=== PATIENT | male | born 1945 | race Caucasian/White ===

== ENCOUNTER → 2018-01-20 07:03 | Outpatient (CLI) | payer MEDICARE, OTHER, SELFPAY ==
[2018-01-20 10:25] LABS: AST(SGOT) 37 U/L (15-37); Alanine Aminotransfer ALT/SGPT 36 U/L (16-61); Albumin, Serum 3.4 g/dL (3.2-5.0); Alkaline Phosphatase 53 U/L (45-117); Bilirubin, Direct 0.14 mg/dL (0.00-0.30); Cholesterol 128 mg/dL (200); Globulin 3.7 g/dL (2.2-4.2); High Density Lipoprotein 38 mg/dL; Protein, Total 7.1 g/dL (6.4-8.2); Triglycerides 133 mg/dL; Very Low Density Lipoprotein 27 mg/dL (5-40)
== END ==
PROVIDERS: Family Provider Internal Medicine; PCP Internal Medicine; Visit Provider Nurse Practitioner Family
DX: E78.5 Hyperlipidemia, unspecified (principal); Z79.899 Other long term (current) drug therapy
CPT/HCPCS: 36415; 80061; 80076

== ENCOUNTER 2018-02-23 20:56 | Observation (INO) | payer MEDICARE, OTHER, SELFPAY ==
[2018-02-23 20:57] VITALS: BP 175/66; PULSE 71; RESP 18; TEMP 36.7; O2SAT 94; BMI 41.8
--- NOTE | 2018-02-23 21:16 | EKG12_ITS ---
Test Reason : CHEST PAIN Blood Pressure : / mmHG Vent. Rate : 070 BPM Atrial Rate : 070 BPM P-R Int : 232 ms QRS Dur : 084 ms QT Int : 394 ms P-R-T Axes : 052 049 060 degrees QTc Int : 425 ms Sinus rhythm with 1st degree A-V block Otherwise normal ECG Confirmed by NJ TALBOT, DANY ([id number]), science editor CESILIA NAGEL ([id number] on 02/26/2018 2:03:17 PM Referred By: MARY Confirmed By:DANY MAURO MD
--- NOTE | 2018-02-23 21:16 | RAD_ITS ---
STUDY: X-RAY CHEST REASON FOR EXAM: Male, 72 years old. Chest pain TECHNIQUE: Single frontal view of the chest. COMPARISON: January 21, 2016 FINDINGS: Sternotomy wires noted. The lungs are clear and expanded. There is no demonstrated pleural abnormality. Normal size heart. Normal mediastinum and darshan. Normal visualized pulmonary arteries. Normal visualized aortic arch and descending thoracic aorta. Normal visualized thoracic spine. Normal visualized ribs, clavicles, and shoulders. There is no demonstrated abnormality of the visualized soft tissue structures of the upper abdomen. RAD/Chest 1 View (Portable) IMPRESSION: Normal x-ray examination of the chest. Electronically Signed: Mario Fraser MD at 21:59 EDT , Service support ,
[2018-02-23 21:33] LABS: Absolute Lymphocyte Count 1.75 X10^3/ul (0.83-4.51); Absolute Neutrophil Count 4.6 X10^3/uL (2.0-7.7); Basophil# 0.02 X10^3/uL; Basophil% 0.3 % (0-1); Eosinophil# 0.14 X10^3/uL; Hematocrit 42.9 % (40-54); Hemoglobin 14.2 g/dl (13.0-16.5); Lymphocyte # 1.75 X10^3/ul (4.0); Lymphocyte % 25.2 % (19-41); Mean Corp Hgb Conc 33.1 g/gl (32-36); Mean Corpuscular Volume 90.5 fL (80-94); Monocyte# 0.45 X10^3/uL; Monocyte% 6.5 % (0-10); Neutrophil # 4.57 X10^3/uL (2.7-7.7); Neutrophil % 65.9 % (47-70); Platelet Count 211 K/mm3 (150-450); RBC Distribution Width CV 13.1 % (11.6-14.6); RBC Distribution Width SD 42.7 fl (35.1-43.9); Red Blood Count 4.74 M/mm3 (4.6-6.2); White Blood Count 6.9 K/mm3 (4.4-11.0)
[2018-02-23 21:34] LABS: POSITIVE COUNT NO; POSITIVE DIFFERENTIAL NO; POSITIVE MORPHOLOGY NO
[2018-02-23 21:35] LABS: Anion Gap 7 (5-15); BUN 17 mg/dL (7-18); Calcium,Total 8.8 mg/dL (8.5-10.1); Chloride 105 mmol/L (98-107); Creatinine, Serum 1.13 mg/dL (0.70-1.30); EST Glomerular Filtration Rate 68 mL/min (>60); Est Glom Filt Rate - Afr Amer 82 mL/min (>60); Estimated Creatinine Clearance 59.09 ml/min; Glucose 169 mg/dL (74-106); Sodium Level 140 mmol/L (136-145)
[2018-02-23] MEDS: 0.9% Normal Saline 1,000 ML 150 ML IV (21:36)
[2018-02-23] MEDS: Aspirin 81 MG TAB.CHEW 324 MG PO (21:36)
[2018-02-23 22:06] VITALS: BP 142/69; PULSE 59; RESP 19; O2SAT 93
--- NOTE | 2018-02-23 22:45 | PCM.HP.STD ---
Problem List (1) Chest pain Status: Acute (2) Atherosclerotic heart disease of [place] coronary artery without angina pectoris Status: Chronic Comment: 11/03/2001 CABG X2: SHEA to LAD and left radial artery graft to the PDA per Dr. Vince Pruett, [facility] (3) Hyperlipidemia Status: Chronic Qualifiers: (4) Hypertension Status: Chronic Qualifiers: (5) Ischemic cardiomyopathy Status: Chronic History of Present Illness Date of Admission: 02/23/18 Chief Complaint: chest pain. The patient is a 72 year old M with known history of coronary artery disease presents with chest pain. Patient was out mowing his lawn and developed substernal chest pain that was nonradiating. Some mowing his lawn and then went inside. Pain persisted for 30 minutes afterwards and was only relieved after he took nitroglycerin. Patient states that he has had a CABG and stents but was not having chest pain at that time. Patient states that he did feel nauseated with this but denied any other constitutional symptoms. He is currently chest pain-free at this time. In the emergency room, patient received 324 mg of aspirin and IV fluids. [] Past Medical History Past Medical History (Chronic Problems): Chronic Problems (Last Reviewed 12/29/17 @ 13:50 by Panchito Estrada MD) Stented coronary artery (Chronic) 02/20/1998 DANIEL to RCA per Dr. Vince Leblanc @ [facility]; 02/12/2016 DANIEL to distal RCA to proximal right PDA; DANIEL to mid RCA, and DANIEL to pre-existing stent to proximal RCA per Dr. Hernandez @ [facility]; 03/12/2016: DANIEL to proximal to mid OM, and to proximal LCX per Dr. Hernandez [facility] Ischemic cardiomyopathy (Chronic) History of left heart catheterization (Chronic) 10/26/[address] Estrada @ [facility], Tsfer to [facility] for CABG; 01/28/2016 perDr. Estrada @ [facility] S/P CABG x 2 (Chronic) 11/03/2001 CABG X2: SHEA to LAD and left radial artery graft to the PDA per Dr. Vince Pruett, [facility] Atherosclerotic heart disease of [place] coronary artery without angina pectoris (Chronic) 11/03/2001 CABG X2: SHEA to LAD and left radial artery graft to the PDA per Dr. Vince Pruett, [facility] Hypertension (Chronic) Hyperlipidemia (Chronic) Allergies No Known Allergies Allergy (Verified 02/23/18 21:04) Home Medications: Ambulatory Orders Medication Instructions Recorded Alfuzosin HCl [Alfuzosin HCl ER] 10 mg PO DAILY 01/24/16 Aspirin [Aspirin, Baby] 81 mg PO DAILY@0800 01/24/16 Aspirin/Sod Bicarb/Citric Acid 1 ea PO PRN PRN 01/24/16 [[place] Original Tab Eff] Dutasteride [Avodart] 0.5 mg PO DAILY 01/24/16 Metoprolol Tartrate [Lopressor 50 mg PO BID 01/24/16 (Beta Alvino)] Multivitamins,Therapeutic 1 tab PO DAILY 01/24/16 [Multivitamin] Nitroglycerin [Nitrostat] 0.4 mg SUBLINGUAL Q5M PRN 01/24/16 Simvastatin [Zocor] 20 mg PO QHS 01/24/16 clopidogrel 75 mg tablet 75 mg PO QDAY tab 12/28/17 Fenofibrate [Lipofen] 160 mg PO DAILY 02/23/18 Losartan Potassium [Cozaar] 50 mg PO QDAY 02/23/18 Surgical History: coronary bypass surgery Psychiatric History: No pertinent psych hx Lives: Spouse/ Significant Other Smoking Status: Former smoker Tobacco Use: Non-smoker Alcohol: None Drugs: None - *Family History Paternal History Items: Heart Disease - Story of CABG Review of Systems Constitutional: Denies: Anorexia, Chills, Fever Eyes: Denies: Blurred vision, Double vision HEENT: Denies: Head Aches, Sinus Congestion, Sinus Drainage Cardiovascular: Reports: Chest Pain, Edema - Trace Respiratory: Denies: Cough, Shortness of breath at rest, Sputum production Gastrointestinal: Reports: Abdominal Pain, Nausea. Denies: Diarrhea, Vomiting Musculoskeletal: Denies: Joint Pain, Joint Tenderness Skin: Denies: Rash, Wounds Neurological: Denies: Numbness, Tingling, Focal weakness Psychiatric: Denies: Anxiety, Depression Hematologic/ Lymphatic: Denies: Easy Bruising, Easy Bleeding, Hx of blood clot VTE Information - Inpt Only VTE Present on Admission: No VTE Pharm Prophylaxis ordered?: Yes Patient Problems: Active and Suspected Problems (Last Reviewed 12/29/17 @ 13:50 by Panchito Estrada MD) Chest pain (Acute) - Physical Exam General: Alert, Cooperative, No apparent distress HEENT: Atraumatic, Normocephalic Neck: No Nodes, Thyroid Normal Size and Texture Lungs: Clear to auscultation, Normal air movement, No rhonchi, No wheeze Cardiovascular: Regular rate, Regular Rhythm, Normal S1, Normal S2, No murmurs Abdomen: Bowel Sounds Present, Soft, Non Tender, Non-Distended, No Hepato-splenomegaly, Obese Extremities: No Calf Tenderness, Edema - Trace Skin: No rashes, No breakdown Psych/Mental Status: Normal Affect, Appropriate Vital Signs Temp Pulse Resp BP Pulse Ox 36.7 C 59 L 19 H 142/69 H 93 02/23/18 20:57 02/23/18 22:06 02/23/18 22:06 02/23/18 22:06 02/23/18 22:06 Oxygen Delivery Method Room Air Weight: 128.367 kg Body Mass Index (BMI) 41.8 Laboratory Tests Past 24 Hrs 02/23/18 02/23/18 21:03 21:03 WBC 6.9 RBC 4.74 Hgb 14.2 Hct 42.9 MCV 90.5 MCH 30.0 MCHC 33.1 RDW 13.1 RDW Differential 42.7 Plt Count 211 MPV 10.0 Immature Gran % (Auto) 0.100 Neut % (Auto) 65.9 Lymph % (Auto) 25.2 [place] % (Auto) 6.5 Eos % (Auto) 2.0 Baso % (Auto) 0.3 Absolute Neuts (auto) 4.6 Absolute Lymphs (auto) 1.75 Total Counted Not Reportable Sodium 140 Potassium 4.0 Chloride 105 Carbon Dioxide 28.0 Anion Gap 7 BUN 17 Creatinine 1.13 Estim Creat Clear Calc 59.09 Est GFR (MDRD) Af Amer 82 Est GFR (MDRD) Non-Af 68 BUN/Creatinine Ratio 15.0 Glucose 169 H Calcium 8.8 Troponin I < 0.015 EKG reviewed and showed normal sinus rhythm with a first-degree AV block. Clinical Impression(s) from Imaging Studies Chest X-Ray 02/23/18 21:16 IMPRESSION: Normal x-ray examination of the chest. Electronically Signed: Mario Fraser MD at 21:59 EDT , Service support , Assessment/Plan Active and Suspected Problems (Last Reviewed 12/29/17 @ 13:50 by Panchito Estrada MD) Chest pain (Acute) 1. Chest pain: Patient to be admitted and we will cycle troponins and plan for a chemical nuclear stress test in the morning. If stress test is abnormal then we will consult cardiology for further evaluation. 2. DVT prophylaxis with Lovenox Code Visit OBSV E&M: 96696 Initial observation care L2
[2018-02-23 22:47] VITALS: BP 180/81; PULSE 61; RESP 19; O2SAT 94
--- NOTE | 2018-02-23 22:55 | HP.PCM_ITS ---
Problem List (1) Chest pain Status: Acute (2) Atherosclerotic heart disease of [place] coronary artery without angina pectoris Status: Chronic Comment: 11/03/2001 CABG X2: SHEA to LAD and left radial artery graft to the PDA per Dr. Vince Pruett, [facility] (3) Hyperlipidemia Status: Chronic Qualifiers: (4) Hypertension Status: Chronic Qualifiers: (5) Ischemic cardiomyopathy Status: Chronic History of Present Illness Date of Admission: 02/23/18 Chief Complaint: chest pain. The patient is a 72 year old M with known history of coronary artery disease presents with chest pain. Patient was out mowing his lawn and developed substernal chest pain that was nonradiating. Some mowing his lawn and then went inside. Pain persisted for 30 minutes afterwards and was only relieved after he took nitroglycerin. Patient states that he has had a CABG and stents but was not having chest pain at that time. Patient states that he did feel nauseated with this but denied any other constitutional symptoms. He is currently chest pain-free at this time. In the emergency room, patient received 324 mg of aspirin and IV fluids. [] Past Medical History Past Medical History (Chronic Problems): Chronic Problems (Last Reviewed 12/29/17 @ 13:50 by Panchito Estrada MD) Stented coronary artery (Chronic) 02/20/1998 DANIEL to RCA per Dr. Vince Leblanc @ [facility]; 02/12/2016 DANIEL to distal RCA to proximal right PDA; DANIEL to mid RCA, and DANIEL to pre-existing stent to proximal RCA per Dr. Hernandez @ [facility]; 03/12/2016: DANIEL to proximal to mid OM, and to proximal LCX per Dr. Hernandez [facility] Ischemic cardiomyopathy (Chronic) History of left heart catheterization (Chronic) 10/26/[address] Estrada @ [facility], Tsfer to [facility] for CABG; 01/28/2016 perDr. Estrada @ [facility] S/P CABG x 2 (Chronic) 11/03/2001 CABG X2: SHEA to LAD and left radial artery graft to the PDA per Dr. Vince Pruett, [facility] Atherosclerotic heart disease of [place] coronary artery without angina pectoris (Chronic) 11/03/2001 CABG X2: SHEA to LAD and left radial artery graft to the PDA per Dr. Vince Pruett, [facility] Hypertension (Chronic) Hyperlipidemia (Chronic) Allergies No Known Allergies Allergy (Verified 02/23/18 21:04) Home Medications: Ambulatory Orders Medication Instructions Recorded Alfuzosin HCl [Alfuzosin HCl ER] 10 mg PO DAILY 01/24/16 Aspirin [Aspirin, Baby] 81 mg PO DAILY@0800 01/24/16 Aspirin/Sod Bicarb/Citric Acid 1 ea PO PRN PRN 01/24/16 [[place] Original Tab Eff] Dutasteride [Avodart] 0.5 mg PO DAILY 01/24/16 Metoprolol Tartrate [Lopressor 50 mg PO BID 01/24/16 (Beta Alvino)] Multivitamins,Therapeutic 1 tab PO DAILY 01/24/16 [Multivitamin] Nitroglycerin [Nitrostat] 0.4 mg SUBLINGUAL Q5M PRN 01/24/16 Simvastatin [Zocor] 20 mg PO QHS 01/24/16 clopidogrel 75 mg tablet 75 mg PO QDAY tab 12/28/17 Fenofibrate [Lipofen] 160 mg PO DAILY 02/23/18 Losartan Potassium [Cozaar] 50 mg PO QDAY 02/23/18 Surgical History: coronary bypass surgery Psychiatric History: No pertinent psych hx Lives: Spouse/ Significant Other Smoking Status: Former smoker Tobacco Use: Non-smoker Alcohol: None Drugs: None - *Family History Paternal History Items: Heart Disease - Story of CABG Review of Systems Constitutional: Denies: Anorexia, Chills, Fever Eyes: Denies: Blurred vision, Double vision HEENT: Denies: Head Aches, Sinus Congestion, Sinus Drainage Cardiovascular: Reports: Chest Pain, Edema - Trace Respiratory: Denies: Cough, Shortness of breath at rest, Sputum production Gastrointestinal: Reports: Abdominal Pain, Nausea. Denies: Diarrhea, Vomiting Musculoskeletal: Denies: Joint Pain, Joint Tenderness Skin: Denies: Rash, Wounds Neurological: Denies: Numbness, Tingling, Focal weakness Psychiatric: Denies: Anxiety, Depression Hematologic/ Lymphatic: Denies: Easy Bruising, Easy Bleeding, Hx of blood clot VTE Information - Inpt Only VTE Present on Admission: No VTE Pharm Prophylaxis ordered?: Yes Patient Problems: Active and Suspected Problems (Last Reviewed 12/29/17 @ 13:50 by Panchito Estrada MD ) Chest pain (Acute) - Physical Exam General: Alert, Cooperative, No apparent distress HEENT: Atraumatic, Normocephalic Neck: No Nodes, Thyroid Normal Size and Texture Lungs: Clear to auscultation, Normal air movement, No rhonchi, No wheeze Cardiovascular: Regular rate, Regular Rhythm, Normal S1, Normal S2, No murmurs Abdomen: Bowel Sounds Present, Soft, Non Tender, Non-Distended, No Hepato- splenomegaly, Obese Extremities: No Calf Tenderness, Edema - Trace Skin: No rashes, No breakdown Psych/Mental Status: Normal Affect, Appropriate Vital Signs Temp Pulse Resp BP Pulse Ox 36.7 C 59 L 19 H 142/69 H 93 02/23/18 20:57 02/23/18 22:06 02/23/18 22:06 02/23/18 22:06 02/23/18 22:06 Oxygen Delivery Method Room Air Weight: 128.367 kg Body Mass Index (BMI) 41.8 Laboratory Tests Past 24 Hrs 02/23/18 02/23/18 21:03 21:03 WBC 6.9 RBC 4.74 Hgb 14.2 Hct 42.9 MCV 90.5 MCH 30.0 MCHC 33.1 RDW 13.1 RDW Differential 42.7 Plt Count 211 MPV 10.0 Immature Gran % (Auto) 0.100 Neut % (Auto) 65.9 Lymph % (Auto) 25.2 [place] % (Auto) 6.5 Eos % (Auto) 2.0 Baso % (Auto) 0.3 Absolute Neuts (auto) 4.6 Absolute Lymphs (auto) 1.75 Total Counted Not Reportable Sodium 140 Potassium 4.0 Chloride 105 Carbon Dioxide 28.0 Anion Gap 7 BUN 17 Creatinine 1.13 Estim Creat Clear Calc 59.09 Est GFR (MDRD) Af Amer 82 Est GFR (MDRD) Non-Af 68 BUN/Creatinine Ratio 15.0 Glucose 169 H Calcium 8.8 Troponin I < 0.015 EKG reviewed and showed normal sinus rhythm with a first-degree AV block. Clinical Impression(s) from Imaging Studies Chest X-Ray 02/23/18 21:16 IMPRESSION: Normal x-ray examination of the chest. Electronically Signed: Mario Fraser MD at 21:59 EDT , Service support , Assessment/Plan Active and Suspected Problems (Last Reviewed 12/29/17 @ 13:50 by Panchito Estrada MD ) Chest pain (Acute) 1. Chest pain: * Patient to be admitted and we will cycle troponins and plan for a chemical nuclear stress test in the morning. * If stress test is abnormal then we will consult cardiology for further evaluation. 2. DVT prophylaxis with Lovenox Code Visit OBSV E&M: 65185 Initial observation care L2
--- NOTE | 2018-02-23 23:01 | ED.VISSUMM ---
- ER Visit Summary Date of Service: 02/23/18 Chief Complaint: Chest pain History of Present Illness: The patient is a [address] Estrada and Dr. Ariza. He reports that he was mowing the lawn approximately 5:00 this afternoon when he had intermittent episodes of chest pain lasts seconds at a time. States that after finishing mowing the lawn he had approximately 30 minutes of a substernal tightness without radiation. He reports pain was 5 out of 10 at worst and is pain-free currently. Pain was relieved by nitroglycerin. He reports that it made him nauseated and short of breath. Physical Examination: Vitals: Stable. Afebrile. General: Well-nourished and well-developed. Head: Normocephalic atraumatic. Neck: Supple, no lymphadenopathy. No JVD. Nontender. Cardiovascular: Regular rate and rhythm. No murmurs. Respiratory: No respiratory distress. Clear to auscultation bilaterally. Abdominal: Soft, nontender, nondistended, normal bowel sounds. No guarding, rebound, or peritoneal signs. Back: Nontender. Extremities: Nontender, no edema. Skin: Normal color, no rash. Neurologic: Alert and oriented ?3. Cranial nerves II through XII are intact. Normal strength and sensation. Psych: Normal affect. Test Results: EKG is sinus with first-degree AV block rate of 70. No acute changes. Unchanged from July 2014. Chest x-ray is normal. Troponin is negative. Chem-7 is more for glucose 169. CBC is normal. Emergency Department Course and Treatment: She was treated with aspirin and is rested comfortably without chest pain while here. Treatment Plan: Given the patient's risk factors I feel that he should be admitted to the hospital for further evaluation and treatment. He was discussed with Dr. Rosado. Disposition: Admitted in improved condition. Impression: 1. Chest pain. 2. MANUEL score of 4. This note was generated with [employer] dictation software. It may contain incorrect words, spelling, and punctuation that were not noted in review of the chart prior to signing ED Disposition - Plan for ED Patient: Chief Complaint: Chest Pain
[2018-02-23 23:38] VITALS: BP 179/90; PULSE 63; RESP 22; TEMP 36.9; O2SAT 94; BMI 41.4; BMI 41.5
[2018-02-23 23:39] VITALS: BP 194/79
[2018-02-23 23:52] VITALS: PULSE 60
--- NOTE | 2018-02-23 23:54 | EKG12_ITS ---
Test Reason : CP REPEAT Blood Pressure : / mmHG Vent. Rate : 058 BPM Atrial Rate : 058 BPM P-R Int : 256 ms QRS Dur : 088 ms QT Int : 434 ms P-R-T Axes : 048 041 062 degrees QTc Int : 426 ms Sinus bradycardia with 1st degree A-V block Otherwise normal ECG When compared with ECG of 02-AUG-2014 21:29, No significant change was found Confirmed by NJ TALBOT, DANY ([id number]), slot editor CESILIA NAGEL ([id number]) on 02/26/2018 3:08:37 PM Referred By: RUBI Confirmed By:DANY MAURO MD
[2018-02-24 03:20] VITALS: PULSE 61
--- NOTE | 2018-02-24 04:00 | EKG12_ITS ---
Test Reason : AM EKG Blood Pressure : / mmHG Vent. Rate : 060 BPM Atrial Rate : 060 BPM P-R Int : 258 ms QRS Dur : 086 ms QT Int : 436 ms P-R-T Axes : 055 057 067 degrees QTc Int : 436 ms Sinus rhythm with 1st degree A-V block Otherwise normal ECG When compared with ECG of 24-FEB-2018 00:11, MANUAL COMPARISON REQUIRED, DATA IS UNCONFIRMED Confirmed by NJ TALBOT, DANY ([id number]), editorial project manager CESILIA NAGEL ([id number]) on 02/26/2018 3:08:26 PM Referred By: RUBI Confirmed By:DANY MAURO MD
[2018-02-24 04:16] LABS: Hemoglobin 13.4 g/dl (13.0-16.5); Mean Corp Hgb Conc 32.7 g/gl (32-36); Mean Corpuscular Hgb 29.7 pg (27.0-32.0); Mean Corpuscular Volume 90.9 fL (80-94); Mean Platelet Vol. 9.9 fl (6.2-12.0); Platelet Count 214 K/mm3 (150-450); RBC Distribution Width CV 13.1 % (11.6-14.6); RBC Distribution Width SD 43.4 fl (35.1-43.9); Red Blood Count 4.51 M/mm3 (4.6-6.2); White Blood Count 6.3 K/mm3 (4.4-11.0)
[2018-02-24 04:18] LABS: Scan Indicated on CBC? Y/N NO
[2018-02-24 04:30] LABS: International Normalized Ratio 1.1; Prothrombin Time (Protime)PT. 13.7 SECONDS (11.7-14.9)
[2018-02-24 04:31] LABS: Anion Gap 7 (5-15); BUN 14 mg/dL (7-18); BUN/Creat Ratio 15.1 RATIO (10-20); Calcium,Total 8.2 mg/dL (8.5-10.1); Chloride 109 mmol/L (98-107); Creatinine, Serum 0.93 mg/dL (0.70-1.30); EST Glomerular Filtration Rate 85 mL/min (>60); Est Glom Filt Rate - Afr Amer 103 mL/min (>60); Estimated Creatinine Clearance 69.46 ml/min; Glucose 96 mg/dL (74-106); Partial Thromboplast Time 27.1 Seconds (24.1-36.2); Potassium 3.9 mmol/L (3.5-5.1); Sodium Level 143 mmol/L (136-145)
[2018-02-24 05:38] VITALS: BP 164/80; PULSE 62; RESP 16; TEMP 37.2; O2SAT 95
[2018-02-24] MEDS: Losartan Potassium 50 MG Tablet PO (06:07)
[2018-02-24] MEDS: Clopidogrel Bisulfate 75 MG Tablet PO (06:07)
[2018-02-24] MEDS: Aspirin 81 MG TAB.CHEW PO (06:07)
[2018-02-24 07:05] VITALS: PULSE 62
[2018-02-24 10:57] VITALS: PULSE 86
[2018-02-24] MEDS: Finasteride 5 MG Tablet PO (10:57)
[2018-02-24] MEDS: Multivitamins,Therapeutic Tablet 1 TABLET PO (10:57)
[2018-02-24] MEDS: Fenofibrate 145 MG Tablet PO (10:57)
[2018-02-24] MEDS: Metoprolol Tartrate 50 MG Tablet PO (10:57)
[2018-02-24 11:13] VITALS: PULSE 70
[2018-02-24 11:22] VITALS: BP 160/81; PULSE 83; RESP 16; TEMP 36.9; O2SAT 97
--- NOTE | 2018-02-24 11:54 | PCM.DC ---
- Discharge Diagnoses Current Active Problems: Current Active and Chronic Problems (Last Reviewed 12/29/17 @ 13:50 by Panchito Estrada MD) Chest pain (Acute) You will use the following diet at home:: Cardiac Discharge Activity: Return to Normal Activity Call your doctor if you observe: Shortness of breath, Dizziness, Fainting spells, Chest pain Allergies/Adverse Reactions: Allergies No Known Allergies Allergy (Verified 02/23/18 21:04) Medications to take at Discharge Alfuzosin HCl [Alfuzosin HCl ER] 10 mg PO DAILY 01/24/16 Aspirin [Aspirin, Baby] 81 mg PO DAILY@0800 01/24/16 Aspirin/Sod Bicarb/Citric Acid [[place] Original Tab Eff] 1 ea PO PRN PRN 01/24/16 Dutasteride [Avodart] 0.5 mg PO DAILY 01/24/16 Metoprolol Tartrate [Lopressor (beta melissa)] 50 mg PO BID 01/24/16 Multivitamins,Therapeutic [Multivitamin] 1 tab PO DAILY 01/24/16 Nitroglycerin [Nitrostat] 0.4 mg SUBLINGUAL Q5M PRN 01/24/16 Simvastatin [Zocor] 20 mg PO QHS 01/24/16 clopidogrel 75 mg tablet 75 mg PO QDAY tab 12/28/17 Fenofibrate [Lipofen] 160 mg PO DAILY 02/23/18 Losartan Potassium [Cozaar] 50 mg PO QDAY 02/23/18 Primary Care Physician: Margaret Ariza DO [Primary Care Provider] - Please follow up with your Primary Care Physician in: 1 Week Please Follow Up With: Panchito Estrada MD When: As scheduled. Proposed Discharge Date: 02/24/18
--- NOTE | 2018-02-24 12:16 | STRESSREP ---
Stress Test Report Pharmacologic myocardial perfusion stress test. 72-year-old man with a history of known coronary artery disease status post previous coronary bypass surgery and cardiac catheterization 2015. Medications aspirin Lipitor Plavix because on metoprolol. Stress protocol: Resting EKG demonstrates normal sinus rhythm with rate of 68 bpm normal intervals and noted resting blood pressure is 170/90 mmHg. 0.4 mg regadenoson was infused per usual protocol followed by rapid intravenous saline flush injection continuous EKG monitoring was performed occasional premature ventricular complexes were noted. The maximum heart rate attained was 93 bpm which was 62% of maximum predicted heart rate the maximum workload attained was 1 metabolic equivalent. At rest there were no ST or T-wave changes noted suggest abnormal flow reserve at peak infusion no ST or T-wave changes were noted suggest abnormal flow reserve. The resting blood pressure was 170/90 with a peak blood pressure 180/82 mmHg. Myocardial perfusion protocol. 14.9 mCi of technetium 99m sestamibi was injected at rest. 0.4 mg regadenoson was infused per usual protocol peak infusion 44.9 mCi of technetium 99m sestamibi was injected stress images were obtained stress and rest images were reconstructed and compared in the short axis vertical long and horizontal long axis. Gated images were also obtained. Perfusion SPECT analysis. Review of the stress images demonstrate normal perfusion noted in the septum anterior wall and lateral wall. There is a medium-sized defect noted in the basal to mid inferior wall on the stress images with a similar patent on the resting images. The mid to distal inferior wall towards the apex appears to be normally perfused. 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 Gated SPECT analysis: The gated ejection fraction is noted to be 67% with basal inferior hypokinesis present. 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 No ischemia noted. Preserved ejection fraction.
--- NOTE | 2018-02-24 13:06 | PCM.DC.SUM ---
<Shandra Nugent - Last Filed: 02/24/18 13:15> Discharge Date and Diagnosis Date of Admission: 02/23/18 Date of Discharge: 02/24/18 - Primary Discharge Diagnosis Active and Suspected Problems (Last Reviewed 12/29/17 @ 13:50 by Panchito Estrada MD) 1. Chest pain- ACS ruled out. 2. CAD with history of CABG ?2, stents 3. Ischemic cardiomyopathy 4. Hypertension 5. Hyperlipidemia - Secondary Discharge Diagnosis Chronic Problems (Last Reviewed 12/29/17 @ 13:50 by Panchito Estrada MD) Stented coronary artery (Chronic) 02/20/1998 DANIEL to RCA per Dr. Vince Leblanc @ [facility]; 02/12/2016 DANIEL to distal RCA to proximal right PDA; DANIEL to mid RCA, and DANIEL to pre-existing stent to proximal RCA per Dr. Hernandez @ [facility]; 03/12/2016: DANIEL to proximal to mid OM, and to proximal LCX per Dr. Hernandez [facility] Ischemic cardiomyopathy (Chronic) History of left heart catheterization (Chronic) 10/26/[address] Estrada @ [facility], Tsfer to [facility] for CABG; 01/28/2016 perDr. Estrada @ [facility] S/P CABG x 2 (Chronic) 11/03/2001 CABG X2: SHEA to LAD and left radial artery graft to the PDA per Dr. Vince Pruett, [facility] Atherosclerotic heart disease of [place] coronary artery without angina pectoris (Chronic) 11/03/2001 CABG X2: SHEA to LAD and left radial artery graft to the PDA per Dr. Vince Pruett, [facility] Hypertension (Chronic) Hyperlipidemia (Chronic) Hospital Course and Treatment Imaging Results: Diagnostic Data Chest X-Ray 02/23/18 21:16 IMPRESSION: Normal x-ray examination of the chest. Electronically Signed: Mario Fraser MD at 21:59 EDT , Service support , Operations: None Procedures: Stress test Summary of Care Provided: The patient is a 72 year old M admitted 02/23/2018 due to chest pain. Patient states he was mowing the lawn when chest pain occurred. It was relieved by taking nitroglycerin. He has a past medical history of CAD status post CABG ?2 and stents, ischemic cardiomyopathy, hypertension, hyperlipidemia. Patient follows with Dr. Chilo meneses as outpatient cardiology. Troponin negative. Patient underwent nuclear stress test which was negative for ischemia. Stress test showed a gated ejection fraction of 67%. Patient will continue home aspirin, Plavix, statin, fenofibrate, metoprolol regimen. His home losartan regimen was increased to 100 mg daily. He will need further outpatient monitoring by primary care physician and cardiology regarding his blood pressure. Follow-up with primary care physician in 1 week. Follow-up with Dr. Estrada as previously scheduled. Patient seen exam prior to discharge. Heart rate regular rate and rhythm. Lungs clear. Abdomen soft, nontender. Neuro grossly intact. Vital signs stable. Patient is stable for discharge home with the follow-up her conditions as noted above. This patient was seen by MORAIMA Tripp under the supervision of Dr. Dean. Discharge Diet: Low fat/ Low Cholesterol Discharge Activity: Return to Normal Activity Call your doctor if you observe: Shortness of breath, Dizziness, Fainting spells, Chest pain Home Medications: Medications to take at Discharge Alfuzosin HCl [Alfuzosin HCl ER] 10 mg PO DAILY 01/24/16 Aspirin [Aspirin, Baby] 81 mg PO DAILY@0800 01/24/16 Aspirin/Sod Bicarb/Citric Acid [[place] Original Tab Eff] 1 ea PO PRN PRN 01/24/16 Dutasteride [Avodart] 0.5 mg PO DAILY 01/24/16 Metoprolol Tartrate [Lopressor (beta melissa)] 50 mg PO BID 01/24/16 Multivitamins,Therapeutic [Multivitamin] 1 tab PO DAILY 01/24/16 Nitroglycerin [Nitrostat] 0.4 mg SUBLINGUAL Q5M PRN 01/24/16 Simvastatin [Zocor] 20 mg PO QHS 01/24/16 clopidogrel 75 mg tablet 75 mg PO QDAY tab 12/28/17 Fenofibrate [Lipofen] 160 mg PO DAILY 02/23/18 Losartan Potassium [Cozaar] 100 mg PO DAILY #30 tab 02/24/18 Following Prescrptions Were Given to Patient: Losartan Potassium [Cozaar] 100 mg PO DAILY #30 tab Primary Care Physician: Margaret Ariza DO [Primary Care Provider] - Please follow up with your Primary Care Physician in: 1 Week Please Follow Up With: Panchito Estrada MD When: As scheduled. Disposition: Home Minutes spent on discharge:: 35 Patient Condition:: Stable Medical Necessity - Tobacco Use Smoking Status: Former smoker Tobacco Use: Non-smoker Meaningful Use Info Meaningful Use Diagnoses (Choose all that apply): None applicable <Riri Dean - Last Filed: 02/24/18 15:58> Discharge Date and Diagnosis - Secondary Discharge Diagnosis Chronic Problems (Last Reviewed 12/29/17 @ 13:50 by Panchito Estrada MD) Stented coronary artery (Chronic) 02/20/1998 DANIEL to RCA per Dr. Vince Leblanc @ [facility]; 02/12/2016 DANIEL to distal RCA to proximal right PDA; DANIEL to mid RCA, and DANIEL to pre-existing stent to proximal RCA per Dr. Hernandez @ [facility]; 03/12/2016: DANIEL to proximal to mid OM, and to proximal LCX per Dr. Hernandez [facility] Ischemic cardiomyopathy (Chronic) History of left heart catheterization (Chronic) 10/26/[address] Estrada @ [facility], Tsfer to [facility] for CABG; 01/28/2016 perDr. Estrada @ [facility] S/P CABG x 2 (Chronic) 11/03/2001 CABG X2: SHEA to LAD and left radial artery graft to the PDA per Dr. Vince Pruett, [facility] Atherosclerotic heart disease of [place] coronary artery without angina pectoris (Chronic) 11/03/2001 CABG X2: SHEA to LAD and left radial artery graft to the PDA per Dr. Vince Pruett, [facility] Hypertension (Chronic) Hyperlipidemia (Chronic) Hospital Course and Treatment Summary of Care Provided: The patient is a 72 year old M [] Code Visit Inpatient E&M: 22134 Disch Hosp
--- NOTE | 2018-02-24 13:15 | DS.PCM_ITS ---
<Shandra Nugent - Last Filed: 02/24/18 13:15> Discharge Date and Diagnosis Date of Admission: 02/23/18 Date of Discharge: 02/24/18 - Primary Discharge Diagnosis Active and Suspected Problems (Last Reviewed 12/29/17 @ 13:50 by Panchito Estrada MD ) 1. Chest pain- ACS ruled out. 2. CAD with history of CABG ?2, stents 3. Ischemic cardiomyopathy 4. Hypertension 5. Hyperlipidemia - Secondary Discharge Diagnosis Chronic Problems (Last Reviewed 12/29/17 @ 13:50 by Panchito Estrada MD) Stented coronary artery (Chronic) 02/20/1998 DANIEL to RCA per Dr. Vince Leblanc @ [facility]; 02/12/2016 DANIEL to distal RCA to proximal right PDA; DANIEL to mid RCA, and DANIEL to pre-existing stent to proximal RCA per Dr. Hernandez @ [facility]; 03/12/2016: DANIEL to proximal to mid OM, and to proximal LCX per Dr. Hernandez [facility] Ischemic cardiomyopathy (Chronic) History of left heart catheterization (Chronic) 10/26/[address] Estrada @ [facility], Tsfer to [facility] for CABG; 01/28/2016 perDr. Estrada @ [facility] S/P CABG x 2 (Chronic) 11/03/2001 CABG X2: SHEA to LAD and left radial artery graft to the PDA per Dr. Vince Pruett, [facility] Atherosclerotic heart disease of [place] coronary artery without angina pectoris (Chronic) 11/03/2001 CABG X2: SHEA to LAD and left radial artery graft to the PDA per Dr. Vince Pruett, [facility] Hypertension (Chronic) Hyperlipidemia (Chronic) Hospital Course and Treatment Imaging Results: Diagnostic Data Chest X-Ray 02/23/18 21:16 IMPRESSION: Normal x-ray examination of the chest. Electronically Signed: Mario Fraser MD at 21:59 EDT , Service support , Operations: None Procedures: Stress test Summary of Care Provided: The patient is a 72 year old M admitted 02/23/2018 due to chest pain. Patient states he was mowing the lawn when chest pain occurred. It was relieved by taking nitroglycerin. He has a past medical history of CAD status post CABG ?2 and stents, ischemic cardiomyopathy, hypertension, hyperlipidemia. Patient follows with Dr. Chilo meneses as outpatient cardiology. Troponin negative. Patient underwent nuclear stress test which was negative for ischemia. Stress test showed a gated ejection fraction of 67%. Patient will continue home aspirin, Plavix, statin, fenofibrate, metoprolol regimen. His home losartan regimen was increased to 100 mg daily. He will need further outpatient monitoring by primary care physician and cardiology regarding his blood pressure. Follow-up with primary care physician in 1 week. Follow-up with Dr. Estrada as previously scheduled. Patient seen exam prior to discharge. Heart rate regular rate and rhythm. Lungs clear. Abdomen soft, nontender. Neuro grossly intact. Vital signs stable. Patient is stable for discharge home with the follow-up her conditions as noted above. This patient was seen by MORAIMA Tripp under the supervision of Dr. Dean. Discharge Diet: Low fat/ Low Cholesterol Discharge Activity: Return to Normal Activity Call your doctor if you observe: Shortness of breath, Dizziness, Fainting spells , Chest pain Home Medications: Medications to take at Discharge Alfuzosin HCl [Alfuzosin HCl ER] 10 mg PO DAILY 01/24/16 Aspirin [Aspirin, Baby] 81 mg PO DAILY@0800 01/24/16 Aspirin/Sod Bicarb/Citric Acid [[place] Original Tab Eff] 1 ea PO PRN PRN 01/24/16 Dutasteride [Avodart] 0.5 mg PO DAILY 01/24/16 Metoprolol Tartrate [Lopressor (beta melissa)] 50 mg PO BID 01/24/16 Multivitamins,Therapeutic [Multivitamin] 1 tab PO DAILY 01/24/16 Nitroglycerin [Nitrostat] 0.4 mg SUBLINGUAL Q5M PRN 01/24/16 Simvastatin [Zocor] 20 mg PO QHS 01/24/16 clopidogrel 75 mg tablet 75 mg PO QDAY tab 12/28/17 Fenofibrate [Lipofen] 160 mg PO DAILY 02/23/18 Losartan Potassium [Cozaar] 100 mg PO DAILY #30 tab 02/24/18 Following Prescrptions Were Given to Patient: Losartan Potassium [Cozaar] 100 mg PO DAILY #30 tab Primary Care Physician: Margaret Ariza DO [Primary Care Provider] - Please follow up with your Primary Care Physician in: 1 Week Please Follow Up With: Panchito Estrada MD When: As scheduled. Disposition: Home Minutes spent on discharge:: 35 Patient Condition:: Stable Medical Necessity - Tobacco Use Smoking Status: Former smoker Tobacco Use: Non-smoker Meaningful Use Info Meaningful Use Diagnoses (Choose all that apply): None applicable <Riri Dean - Last Filed: 02/24/18 15:58> Discharge Date and Diagnosis - Secondary Discharge Diagnosis Chronic Problems (Last Reviewed 12/29/17 @ 13:50 by Panchito Estrada MD) Stented coronary artery (Chronic) 02/20/1998 DANIEL to RCA per Dr. Vince Leblanc @ [facility]; 02/12/2016 DANIEL to distal RCA to proximal right PDA; DANIEL to mid RCA, and DANIEL to pre-existing stent to proximal RCA per Dr. Hernandez @ [facility]; 03/12/2016: DANIEL to proximal to mid OM, and to proximal LCX per Dr. Hernandez [facility] Ischemic cardiomyopathy (Chronic) History of left heart catheterization (Chronic) 10/26/[address] Estrada @ [facility], Tsfer to [facility] for CABG; 01/28/2016 perDr. Estrada @ [facility] S/P CABG x 2 (Chronic) 11/03/2001 CABG X2: SHEA to LAD and left radial artery graft to the PDA per Dr. Vince Pruett, [facility] Atherosclerotic heart disease of [place] coronary artery without angina pectoris (Chronic) 11/03/2001 CABG X2: SHEA to LAD and left radial artery graft to the PDA per Dr. Vince Pruett, [facility] Hypertension (Chronic) Hyperlipidemia (Chronic) Hospital Course and Treatment Summary of Care Provided: The patient is a 72 year old M [] Code Visit Inpatient E&M: 87308 Disch Hosp
== END 2018-02-24 11:54 | disposition home or self-care (01) ==
LOC: ED 21:26 → PCU 22:48
PROVIDERS: Emergency Provider Emergency Medicine; Family Provider Internal Medicine; PCP Internal Medicine; Visit Provider Internal Medicine
DX: R07.89 Other chest pain (principal); I25.10 Atherosclerotic heart disease of native coronary artery without angina pectoris; I10 Essential (primary) hypertension; E78.5 Hyperlipidemia, unspecified; I25.5 Ischemic cardiomyopathy; Z95.1 Presence of aortocoronary bypass graft; Z87.891 Personal history of nicotine dependence; I44.0 Atrioventricular block, first degree; Z79.899 Other long term (current) drug therapy; Z79.82 Long term (current) use of aspirin; Z79.02 Long term (current) use of antithrombotics/antiplatelets; R11.0 Nausea; R06.09 Other forms of dyspnea
CPT/HCPCS: 36415; 71045; 78452; 80048; 84484; 85025; 85027; 85610; 85730; 93005; 93017; 96360; 99218; 99285; A9500; J7030; A4216; G0378; J2785

== ENCOUNTER → 2018-06-16 12:40 | Outpatient (CLI) | payer MEDICARE, OTHER, SELFPAY ==
[2018-06-16 13:42] LABS: PSA,Total- Diagnostic 2.66 ng/mL (0.0-4.0)
== END ==
PROVIDERS: Family Provider Internal Medicine; PCP Internal Medicine; Visit Provider Nurse Practitioner Adult Health
DX: R97.20 Elevated prostate specific antigen [PSA] (principal); R36.1 Hematospermia
CPT/HCPCS: 36415; 84153

== ENCOUNTER → 2018-08-20 07:58 | Outpatient (CLI) | payer MEDICARE, OTHER, SELFPAY ==
[2018-08-20 09:12] LABS: AST(SGOT) 50 U/L (15-37); Alanine Aminotransfer ALT/SGPT 46 U/L (16-61); Albumin, Serum 3.3 g/dL (3.2-5.0); Alkaline Phosphatase 54 U/L (45-117); Bilirubin, Direct 0.17 mg/dL (0.00-0.30); Cholesterol 128 mg/dL (200); Globulin 3.7 g/dL (2.2-4.2); High Density Lipoprotein 37 mg/dL; Triglycerides 162 mg/dL; Very Low Density Lipoprotein 32 mg/dL (5-40)
== END ==
PROVIDERS: Nurse Practitioner Family; Family Provider Internal Medicine; PCP Internal Medicine; Referring Provider Physician Assistant Medical; Visit Provider Physician Assistant Medical
DX: E78.5 Hyperlipidemia, unspecified (principal)
CPT/HCPCS: 36415; 80061; 80076

== ENCOUNTER 2018-08-26 18:54 | Emergency (ER) | payer MEDICARE, OTHER, SELFPAY ==
[2018-08-26 18:55] VITALS: BP 154/74; PULSE 74; RESP 22; TEMP 37; O2SAT 98; BMI 40.3
--- NOTE | 2018-08-26 19:12 | EKG12_ITS ---
Test Reason : CP Blood Pressure : / mmHG Vent. Rate : 076 BPM Atrial Rate : 076 BPM P-R Int : 208 ms QRS Dur : 084 ms QT Int : 390 ms P-R-T Axes : 046 043 062 degrees QTc Int : 438 ms Normal sinus rhythm Low voltage QRS Borderline ECG Confirmed by [place] TALBOT, DANY ([id number]), editorial specialist CESILIA NAGEL ([id number]) on 09/01/2018 11:25:23 AM Referred By: Daniella Mistry Confirmed By:DANY MAURO MD
--- NOTE | 2018-08-26 19:13 | RAD_ITS ---
STUDY: X-RAY CHEST REASON FOR EXAM: Male, 72 years old. Chest pain. TECHNIQUE: 2 views COMPARISON: Prior chest radiograph of February 23, 2018. FINDINGS: The lungs are clear and expanded. There is no demonstrated pleural abnormality. Normal size heart. Status post prior midline sternotomy. Normal visualized pulmonary arteries. There is atherosclerotic calcification of the aortic arch with tortuosity. There are diffuse degenerative changes of the visualized thoracic spine. Normal visualized ribs, clavicles, and shoulders. There is no demonstrated abnormality of the visualized soft tissue structures of the upper abdomen. RAD/Chest PA and Lateral IMPRESSION: No acute cardiopulmonary findings or changes. Negative for new consolidation, focal atelectasis, cardiomegaly or pleural effusion. Electronically Signed: Salima Carbone MD at 20:11 EST , Service support ,
--- NOTE | 2018-08-26 19:13 | ED.DCSUM_ITS ---
- ER Visit Summary Date of Service: 08/26/18 Chief Complaint: Left-sided chest pain History of Present Illness: The patient is a 72 M presents for intermittent left-sided chest pain. Onset was at rest today. Pain is sharp and lasts approximately 3-5 seconds. He has had multiple episodes. There is nothing that makes it better or worse. He is able to point with one finger to the left lateral breast near the axilla and states the pain radiates towards his shoulder. No difference with arm movement. Denies shortness of breath, fever, abdominal pain, nausea or vomiting, palpitations, back pain, neck pain or any other complaints. Patient took 1 nitro without any change in the pain. He has never had pain like this before. Physical Examination: Vital signs: afebrile, hemodynamically stable, no hypoxia on room air General: well nourished, well developed, in no distress Skin: warm, dry, no rash, no pallor HEENT: normocephalic and atraumatic; PERRL, EOMI, moist mucous membranes Cardiovascular: regular rate and rhythm without murmurs, no peripheral edema, 2+ pulses all distal extremities, no rash or tenderness to palpation of the chest Respiratory: No increased work of breathing, lungs are clear to auscultation bilaterally, no rales, rhonchi or wheezing Abdominal: Abdomen is soft, nontender with normoactive bowel sounds, no guarding or rebound, no masses MSK: Moves all extremities, no deformities, normal strength, no reproduction of pain with full range of motion of the left shoulder. Neuro: Awake and alert, oriented ?4. No facial droop, sensation and motor function intact and symmetric Test Results: Abnormal Lab Results 08/26/18 08/26/18 08/26/18 19:00 19:00 19:00 WBC 5.5 RBC 4.96 Hgb 14.6 Hct 44.9 MCV 90.5 MCH 29.4 MCHC 32.5 RDW 12.9 RDW Differential 42.2 Plt Count 210 MPV 9.9 Immature Gran % (Auto) 0.200 Neut % (Auto) 61.6 Lymph % (Auto) 26.7 [place] % (Auto) 7.0 Eos % (Auto) 4.0 Baso % (Auto) 0.5 Absolute Neuts (auto) 3.4 Absolute Lymphs (auto) 1.48 Total Counted Not Reportable Sodium 139 Potassium 4.0 Chloride 104 Carbon Dioxide 28.0 Anion Gap 7 BUN 13 Creatinine 1.05 Estim Creat Clear Calc 63.59 Est GFR (MDRD) Af Amer 89 Est GFR (MDRD) Non-Af 74 BUN/Creatinine Ratio 12.4 Glucose 168 H Calcium 8.6 Troponin I < 0.015 B-Natriuretic Peptide 30.3 Clinical Impression(s) from Imaging Studies Chest X-Ray 08/26/18 19:13 IMPRESSION: No acute cardiopulmonary findings or changes. Negative for new consolidation, focal atelectasis, cardiomegaly or pleural effusion. Electronically Signed: Salima Carbone MD at 20:11 EST , Service support , Emergency Department Course and Treatment: Patient was given aspirin. He was currently pain-free. EKG showed sinus rhythm without ischemic changes. Troponin negative. BNP within normal limits. CBC and CMP unremarkable. Chest x-ray showed no acute process, including no pneumothorax, pneumonia, or findings concerning for CHF. Patient was very comfortable on reevaluation and had had one episode of the brief sharp localized pain sensation. He was concerned it might be a blood clot in his arm. Patient had good range of motion and no tenderness in the left upper extremity. Radial pulse 2+. Skin was warm and showed no signs of neurovascular compromise. Patient's presentation does not seem consistent with a cardiac process or vascular process. Patient was discharged home and is to follow-up with his doctor if he continues to have these brief sharp pains. Treatment Plan: [] Disposition: [] Impression: Left chest wall pain This note was generated with [employer] dictation software. It may contain incorrect words, spelling, and punctuation that were not noted in review of the chart prior to signing ED Disposition - Plan for ED Patient: Disposition: Home or Assisted Living Chief Complaint: Chest Pain Instructions: ED Chest Pain Atypical Unkn Cause Referrals: Margaret Ariza, DO [Primary Care Provider] - 1-2 Days if not improving Additional Instructions: Please follow up with your doctor in 1-2 days for another evaluation if you continue to have this sharp pain in your left armpit region. Try taking ibuprofen as needed for pain. Take all your medications as prescribed by your doctors. If you have any worsening of your condition or any new concerning symptoms, please return immediately to the emergency department for another evaluation.
[2018-08-26] MEDS: Aspirin 81 MG TAB.CHEW 324 MG PO (19:27)
[2018-08-26 19:40] LABS: Absolute Lymphocyte Count 1.48 X10^3/ul (0.83-4.51); Absolute Neutrophil Count 3.4 X10^3/uL (2.0-7.7); Basophil# 0.03 X10^3/uL; Basophil% 0.5 % (0-1); Eosinophil# 0.22 X10^3/uL; Hematocrit 44.9 % (40-54); Hemoglobin 14.6 g/dl (13.0-16.5); Lymphocyte # 1.48 X10^3/ul (4.0); Lymphocyte % 26.7 % (19-41); Mean Corp Hgb Conc 32.5 g/gl (32-36); Mean Corpuscular Hgb 29.4 pg (27.0-32.0); Mean Corpuscular Volume 90.5 fL (80-94); Mean Platelet Vol. 9.9 fl (6.2-12.0); Monocyte# 0.39 X10^3/uL; Neutrophil # 3.41 X10^3/uL (2.7-7.7); Neutrophil % 61.6 % (47-70); POSITIVE COUNT NO; POSITIVE DIFFERENTIAL NO; POSITIVE MORPHOLOGY NO; Platelet Count 210 K/mm3 (150-450); RBC Distribution Width CV 12.9 % (11.6-14.6); RBC Distribution Width SD 42.2 fl (35.1-43.9); Red Blood Count 4.96 M/mm3 (4.6-6.2); White Blood Count 5.5 K/mm3 (4.4-11.0)
[2018-08-26 19:48] LABS: Anion Gap 7 (5-15); BUN 13 mg/dL (7-18); BUN/Creat Ratio 12.4 RATIO (10-20); Calcium,Total 8.6 mg/dL (8.5-10.1); Chloride 104 mmol/L (98-107); Creatinine, Serum 1.05 mg/dL (0.70-1.30); EST Glomerular Filtration Rate 74 mL/min (>60); Est Glom Filt Rate - Afr Amer 89 mL/min (>60); Estimated Creatinine Clearance 63.59 ml/min; Glucose 168 mg/dL (74-106); Sodium Level 139 mmol/L (136-145)
[2018-08-26 20:08] LABS: BNP,B-Type NATRIURETIC PEPTIDE 30.3 pg/mL (0-100)
--- NOTE | 2018-08-26 21:18 | ED.DEP ---
ED Disposition - Plan for ED Patient: Disposition: Home or Assisted Living Chief Complaint: Chest Pain Instructions: ED Chest Pain Atypical Unkn Cause Referrals: Margaret Ariza DO [Primary Care Provider] - 1-2 Days if not improving Additional Instructions: Please follow up with your doctor in 1-2 days for another evaluation if you continue to have this sharp pain in your left armpit region. Try taking ibuprofen as needed for pain. Take all your medications as prescribed by your doctors. If you have any worsening of your condition or any new concerning symptoms, please return immediately to the emergency department for another evaluation.
[2018-08-26 21:34] VITALS: BP 149/74; PULSE 70; RESP 16; O2SAT 97
== END 2018-08-26 21:39 | disposition home or self-care (01) ==
PROVIDERS: Emergency Provider Emergency Medicine; Family Provider Internal Medicine; PCP Internal Medicine
DX: R07.89 Other chest pain (principal); I25.10 Atherosclerotic heart disease of native coronary artery without angina pectoris; I10 Essential (primary) hypertension; Z95.1 Presence of aortocoronary bypass graft; Z79.899 Other long term (current) drug therapy
CPT/HCPCS: 71046; 80048; 83880; 84484; 85025; 93005; 99285; A4216

== ENCOUNTER → 2019-03-28 | Outpatient (CLI) | payer MEDICARE, OTHER, SELFPAY ==
[2019-02-17 13:39] VITALS: BMI 41.3
[2019-03-28 08:11] LABS: Bacteria 0 SEEN /hpf (None Seen); Mucous, Urine 0 SEEN /hpf (<or=2+); Red Blood Cells-Urine 0 SEEN /hpf (0-5); White Blood Cells 0 SEEN /hpf (0-5)
[2019-03-28 10:18] LABS: Color, Urine Yellow (Yellow); Glucose, Dipstick Normal (Normal); Ketone-Dipstick Negative (Negative); Leukocyte Esterase-Dipstick Negative /ul (Negative); Nitrite-Dipstick Negative (Negative); Occult Blood-Urine Negative /ul (Negative); Protein-Dipstick Negative (Negative); Urine Bilirubin Dipstick Negative (Negative); Urine Clarity Sl. Cloudy (Clear); Urine Urobilinogen Normal (Normal)
[2019-03-28 10:20] LABS: Absolute Lymphocyte Count 1.66 X10^3/ul (0.83-4.51); Basophil# 0.02 X10^3/uL; Basophil% 0.3 % (0-1); Eosinophil# 0.16 X10^3/uL; Eosinophils% 2.5 % (0-5); Hematocrit 45.6 % (40-54); Hemoglobin 14.7 g/dl (13.0-16.5); Lymphocyte # 1.66 X10^3/ul (4.0); Lymphocyte % 26.4 % (19-41); Mean Corp Hgb Conc 32.2 g/gl (32-36); Mean Corpuscular Hgb 29.3 pg (27.0-32.0); Mean Corpuscular Volume 90.8 fL (80-94); Mean Platelet Vol. 10.2 fl (6.2-12.0); Monocyte# 0.44 X10^3/uL; Neutrophil # 4.01 X10^3/uL (2.7-7.7); Neutrophil % 63.8 % (47-70); Platelet Count 197 K/mm3 (150-450); RBC Distribution Width CV 12.9 % (11.6-14.6); RBC Distribution Width SD 42.5 fl (35.1-43.9); Red Blood Count 5.02 M/mm3 (4.6-6.2); White Blood Count 6.3 K/mm3 (4.4-11.0)
[2019-03-28 10:21] LABS: POSITIVE COUNT NO; POSITIVE DIFFERENTIAL NO; POSITIVE MORPHOLOGY NO
[2019-03-28 10:26] LABS: Squamous Epithelial Cells - UA 0-5 SEEN /hpf (0-5)
[2019-03-28 10:44] LABS: Microalbumin,Random Urine 6.2 mg/L (NO RANGE EST.)
[2019-03-28 10:52] LABS: Vitamin D,25 Hydroxy 22.7 ng/mL (29.95-100.01)
[2019-03-28 11:19] LABS: ALB/GLOB Ratio 0.9 RATIO (0.9-2.4); AST(SGOT) 63 U/L (15-37); Alanine Aminotransfer ALT/SGPT 47 U/L (16-61); Albumin, Serum 3.4 g/dL (3.2-5.0); Alkaline Phosphatase 52 U/L (45-117); Anion Gap 9 (5-15); BUN 13 mg/dL (7-18); BUN/Creat Ratio 12.7 RATIO (10-20); Calcium,Total 8.7 mg/dL (8.5-10.1); Chloride 105 mmol/L (98-107); Creatinine, Serum 1.02 mg/dL (0.70-1.30); EST Glomerular Filtration Rate 76 mL/min (>60); Est Glom Filt Rate - Afr Amer 92 mL/min (>60); Globulin 3.6 g/dL (2.2-4.2); Glucose 92 mg/dL (74-106); Potassium 4.2 mmol/L (3.5-5.1); Sodium Level 141 mmol/L (136-145); Thyroid Stim Hormone (TSH) 1.87 uIU/mL (0.358-3.74)
[2019-03-29 20:06] LABS: CHOLESTEROL TOTAL 145 mg/dL (100-199); HDL-C 37 mg/dL (>39); HDL-P TOTAL 32.4 umol/L (>=30.5); SMALL LDL-P 530 nmol/L (<=527); TRIGLYCERIDES 173 mg/dL (0-149)
[2019-03-30 11:25] LABS: INSULIN RESISTANCE SCORE 76 (<=45); LDL SIZE 20.4 nm (>20.5); LDL-C 73 mg/dL (0-99); LDL-P 1070 nmol/L (<1000)
== END | disposition home or self-care (01) ==
LOC: MTLAB 08:05
PROVIDERS: Family Provider Internal Medicine; PCP Internal Medicine; Referring Provider Internal Medicine; Visit Provider Internal Medicine
DX: E78.2 Mixed hyperlipidemia (principal); E55.9 Vitamin D deficiency, unspecified; I10 Essential (primary) hypertension
CPT/HCPCS: 36415; 80053; 80061; 81001; 82043; 82306; 83704; 84443; 85025

== ENCOUNTER 2019-04-06 10:00 | Outpatient (RCR) | payer MEDICARE, OTHER, SELFPAY ==
[2019-02-17 13:39] VITALS: BMI 41.3
--- NOTE | 2019-03-23 09:56 | HP.PTEVAL ---
Patient's Visit Information LB SALCEDO Jr. is a 73 year old M referred to Physical Therapy by Margaret Ariza DO with a diagnosis of LBP ,SCIATICA RADICULOPATHY LEFT LEG. Date of Evaluation: 03/23/19 Physical Therapist: Cipriano Ness PT, Cert MDT, OCS - Visit Plan Frequency: 1-2x /Week Duration: 4 Weeks Plan: INTERVENTIONS LUMBAR FLEXIION,DLS ,LE FLEXABLITY FOR HEP - Subjective Findings: This 73 y/o male presents to do physical therapy with LBP radiculopthy left leg.Patient has had lumbar pain for many years about years. Patient pain is located symmtrical lumbar did radiated to left leg. Patient pain located left L-S region but left leg better.Aggravated factors worse walking and standing affects ADL'S and housework chores. Alleviating factors sitting/resting. Bowel/bladder good.Coughing/sneezing . No prior trauma. No prior PT or other tx. Patient denies/parathesia/tingling. SOCIAL: . VOCATION: retired - Pain Left Back Pain Intensity (Out of 10): 3 Pain Intensity Range: 10 - Objective POSTURE: mild foward posture. GAIT: reciprocal pattern mild foward posture. NEURO: intact ,denies parathesia/tingling,reflexes L3-4,L4-5,L5-S1 2/3. MMT: quads/hams 4/5,hip flexion 4-/5 ankle 4/5. LUMBAR ROM: flexion min loss,extension decrease segmental motion,side glides min loss. FLEXABLITY: hams mod loss - Special Tests L/S Slump test left side: Negative L/S Slump test right side: Negative L/S Left Straight Leg Raise: Negative L/S Right Straight Leg Raise: Negative Lumbar Standing: Flexion - Mechanical Response: No effect Lumbar Standing: Flexion - Symptoms During Testing: No effect Lumbar Standing: Flexion - Symptoms After Testing: No effect Lumbar Standing: Extension - Mechanical Response: No effect Lumbar Standing: Extension - Symptoms During Testing: Increases Lumbar Standing: Extension - Symptoms After Testing: No worse Lumbar Standing: Right Side Glides - Mechanical Response: No effect Lumbar Standing: Right Side [place] - Symptoms During Testing: No effect Lumbar Standing: Right Side [place] - Symptoms After Testing: No effect Lumbar Standing: Left Side [place] - Mechanical Response: No effect Lumbar Standing: Left Side [place] - Symptoms During Testing: Increases Lumbar Standing: Left Side [place] - Symptoms After Testing: No worse Lumbar Lying: Flexion - Mechanical Response: No effect Lumbar Lying: Flexion - Symptoms During Testing: Decreases Lumbar Lying: Flexion - Symptoms After Testing: Better - Goals Goal 1:: Independant with posture/body mechanics for ADLS'S Goal Time Frame: 4-6 Weeks Goal 2:: Independant with HEP. Goal Time Frame: 4-6 Weeks Goal 3:: Decrease pain by 50% or greater to improve function walking and standing. Goal Time Frame: 4-6 Weeks Goal 4:: Patient to improve lumbar ROM for function of recovery. Goal Time Frame: 4-6 Weeks Goal 5:: Patient to improve backk owestry score by 5 points to improve QOL. Goal Time Frame: 4-6 Weeks - Rehabilitation Potential Physical Therapy Diagnosis: Patient has lumbar pain with possible lateral stenosis with pain with walking and standing affects ADL's thus benifit drom skilled PT Rehabilitation Potential: Good - Anticipated Interventions Patient/Client Instruction: Educate patient on: Condition, Plan of Care For the Purpose of:: To decrease pain, To increase ROM, To improve muscle performance and motor function, To increase tolerance to activity/condition/position, To improve ability of physical actions for home/community/work/leisure, To improve health of tissue, To decrease soft tissue restriction, To increase flexibility/ROM, To improve endurance, To reduce risk of recurrence, To improve ability to perform tasks related to life management Therapeutic Exercise to Include: Strength training, Postural training, Flexibilty training, Dynamic Lumbar Stabilization For the Purpose of:: To decrease pain, To increase ROM, To improve ability to perform ADL's, To increase tolerance to activity/condition/position, To improve ability of physical actions for home/community/work/leisure, To improve health of tissue, To decrease soft tissue restriction, To increase flexibility/ROM, To improve ability to perform tasks related to life management TENS: Yes IF ES: Yes Cryotherapy (ice pack, ice massage): Yes Thermo therapy (hot pack): Yes For the Purpose of:: To decrease pain, To improve nutrient delivery to tissue, To increase oxygenation perfusion, To improve health of tissue, To decrease soft tissue restriction, To increase flexibility/ROM Thank you for the opportunity to evaluate your patient. For Medicare and Medicare HMO plans, please review the plan of care and approve it. It will need to be FAXED BACK to us at [phone] for Medicare purposes. For Medicare only, by signing this I certify the plan of care. Please let me know if there are questions or concerns regarding this plan of care. Physician Signature: Date:
--- NOTE | 2019-04-06 10:23 | HP.PTDCSUM_ITS ---
HP - PT D/C Summary It has been my pleasure to treat LB SALCEDO under orders from Margaret Ariza DO, for the diagnosis of LBP ,SCIATICA RADICULOPATHY LEFT LEG for a total of 3 visit(s). Discharge Date: 04/06/19 Please see the following information for a summary of their discharge status. - Subjective Subjective: Patient went golfing twice ..no problems - Pain Left Back Pain Intensity (Out of 10): 0 - Overall Improvement % Improvement: 80 - Objective Objective/Function: POSTURE: mild foward posture. MMT: quads/hams 5/5. LUMBAR ROM : flexion min loss,extension mod loss,side glides mod loss. -SLR - Goals Goal 1:: Independant with posture/body mechanics for ADLS'S Goal Progress: Goal Met Goal 2:: Independant with HEP. Goal Progress: Goal Met Goal 3:: Decrease pain by 50% or greater to improve function walking and harshad ding. Goal Progress: Goal Met Goal 4:: Patient to improve lumbar ROM for function of recovery. Goal Progress: Goal Met Goal 5:: Patient to improve backk owestry score by 5 points to improve QOL. Goal Progress: Goal Met - Plan Plan: D/C TO HEP - D/C Information Discharge Comments: HEP If there are questions or concerns regarding this patient's physical therapy, please feel free to call me at [phone]. Thank you for the referral of this patient. Sincerely, Cipriano Ness, PT, Cert MDT, OCS
== END 2019-04-06 19:00 | disposition home or self-care (01) ==
LOC: PT 10:00
PROVIDERS: Family Provider Internal Medicine; PCP Internal Medicine; Referring Provider Internal Medicine; Visit Provider Internal Medicine
DX: M54.40 Lumbago with sciatica, unspecified side (principal); M54.10 Radiculopathy, site unspecified
CPT/HCPCS: 97110; 97164

== ENCOUNTER 2019-05-16 14:13 | Emergency (ER) | payer MEDICARE, OTHER, SELFPAY ==
[2019-02-17 13:39] VITALS: BMI 41.3
[2019-05-16 14:24] VITALS: BP 165/74; PULSE 103; RESP 19; TEMP 36.7; O2SAT 94; BMI 41.6
--- NOTE | 2019-05-16 14:32 | RAD_ITS ---
STUDY: X-RAY CHEST REASON FOR EXAM: Male, 73 years old. Chest pain. Tachycardia. TECHNIQUE: Single AP portable view of the chest. COMPARISON: Comparison is made with prior examination of August 26, 2018. FINDINGS: EKG electrodes are seen. The lungs are clear and expanded. There is no demonstrated pleural abnormality. Sternal cerclage wires and vascular clips are present from a prior sternotomy and coronary artery bypass graft procedure (CABG). Normal mediastinum and darshan. Normal visualized pulmonary arteries. There is atherosclerotic tortuosity of the aortic arch and descending thoracic aorta. There are diffuse degenerative changes of the visualized thoracic spine. Normal visualized ribs, clavicles, and shoulders. There is no demonstrated abnormality of the visualized soft tissue structures of the upper abdomen. RAD/Chest 1 View (Portable) IMPRESSION: No acute abnormality is seen. Electronically Signed: Oneil Castro, at 15:03 EDT , Service support ,
--- NOTE | 2019-05-16 14:32 | EKG12_ITS ---
Test Reason : CP Blood Pressure : / mmHG Vent. Rate : 106 BPM Atrial Rate : 106 BPM P-R Int : 198 ms QRS Dur : 084 ms QT Int : 334 ms P-R-T Axes : 067 058 068 degrees QTc Int : 443 ms Sinus tachycardia Nonspecific ST abnormality Abnormal ECG Confirmed by HAYDEN TALBOT, MARY ([id number]), editor managing newspaper NIRALI CASTILLO ([id number]) on 05/18/2019 10:10:53 AM Referred By: Confirmed By:MARY BLAKE MD
[2019-05-16 14:34] VITALS: O2SAT 90
[2019-05-16 14:43] LABS: Absolute Lymphocyte Count 1.46 X10^3/uL (0.83-4.51); Absolute Neutrophil Count 6.6 X10^3/uL (2.0-7.7); Basophil# 0.04 X10^3/uL; Basophil% 0.5 % (0-1); Eosinophil# 0.15 X10^3/uL; Eosinophils% 1.7 % (0-5); Hematocrit 43.9 % (40-54); Hemoglobin 14.4 g/dL (13.0-16.5); Lymphocyte # 1.46 X10^3/ul (4.0); Lymphocyte % 16.6 % (19-41); Mean Corp Hgb Conc 32.8 g/dL (32-36); Mean Corpuscular Hgb 29.8 pg (27.0-32.0); Mean Corpuscular Volume 90.7 fL (80-94); Monocyte# 0.51 X10^3/uL; Monocyte% 5.8 % (0-10); NRBC Flagged by Analyzer 0 % (0-5); Neutrophil # 6.59 X10^3/uL (2.7-7.7); Neutrophil % 74.9 % (47-70); Platelet Count 213 K/mm3 (150-450); RBC Distribution Width CV 12.3 % (11.6-14.6); RBC Distribution Width SD 40.3 fl (35.1-43.9); Red Blood Count 4.84 M/mm3 (4.6-6.2); White Blood Count 8.8 K/mm3 (4.4-11.0)
[2019-05-16 15:00] LABS: Anion Gap 6 (5-15); BUN 19 mg/dL (7-18); BUN/Creat Ratio 16.2 RATIO (10-20); Calcium,Total 9.1 mg/dL (8.5-10.1); Chloride 107 mmol/L (98-107); Creatinine, Serum 1.17 mg/dL (0.70-1.30); EST Glomerular Filtration Rate 65 mL/min (>60); Est Glom Filt Rate - Afr Amer 79 mL/min (>60); Estimated Creatinine Clearance 56.23 ml/min; Glucose 165 mg/dL (74-106); Potassium 3.7 mmol/L (3.5-5.1); Sodium Level 141 mmol/L (136-145)
[2019-05-16 15:19] VITALS: BP 135/71; PULSE 74; RESP 18; O2SAT 95
[2019-05-16 16:20] VITALS: BP 133/78; PULSE 67; O2SAT 96
[2019-05-16 17:08] VITALS: BP 134/77; PULSE 64; O2SAT 97
--- NOTE | 2019-05-16 18:16 | ED.VISSUMM ---
- ER Visit Summary Date of Service: 05/16/19 Chief Complaint: Discomfort History of Present Illness: The patient is a 73 M history of CAD hypertension high cholesterol. He has had prior bypass surgery in 2000 and double bypass. He has had 7 cardiac stents in the last several years. Basically he had 1 to 2 hours of chest pain today so it was dull aching around 1:30 in the afternoon. It resolved prior to arriving the ER. He did take 3 sublingual nitros unsure if that relieves the pain or not. He denies any recent exertional chest pain or exertional dyspnea. States is actually been feeling well. He actually golfed earlier today and had no problems while golfing when he was driving home is been in discomfort started. Currently is pain-free. Symptom-free. Physical Examination: Older male no acute distress. Vital signs stable afebrile. Pulse ox 97% room air no signs of hypoxia. HEENT exam unremarkable. Neck nontender. No JVD. Lungs clear to auscultation bilaterally. Heart regular rhythm no murmur. Abdomen soft nontender. Extremities moves all 4. Calves nontender no edema. Neurologically is awake alert with no focal motor deficits. Test Results: Patient underwent a cardiac work-up. EKG sinus rhythm rate of 106 with no acute signs of KS or ischemia. CBC normal with a white count 8 and hemoglobin of 14. Chemistries normal. Initial troponin was normal and I did a repeat troponin and it was also -2 hours after the first. Chest x-ray shows prior sternotomy but no acute process read both by myself and the radiologist. Emergency Department Course and Treatment: Repeat exam the patient been pain-free the entire time in the emergency department. He is feeling well at 1815. His second troponin was negative. I did speak to Dr. Doyle Hernandez of cardiology and their office will follow him up this week and arrange for a possible outpatient stress test. Treatment Plan: Follow-up with cardiology office. Return if feeling worse. Disposition: Discharge Impression: Acute chest pain uncertain etiology History of CAD with prior bypass and stents This note was generated with [employer] dictation software. It may contain incorrect words, spelling, and punctuation that were not noted in review of the chart prior to signing ED Disposition - Plan for ED Patient: Referrals: Margaret Ariza DO [Primary Care Provider] -
[2019-05-16 18:17] VITALS: BP 138/68; PULSE 63; RESP 14; O2SAT 97
--- NOTE | 2019-05-16 18:19 | DCINST.ED_ITS ---
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 They will get to and and most likely do an outpatient stress test. Continue your current medications. If you have recurrent chest pain, or feeling worse or have exertional shortness of breath or chest pain return to the ER. All your tests today were normal.
== END 2019-05-16 18:25 | disposition home or self-care (01) ==
PROVIDERS: Emergency Provider Emergency Medicine; Family Provider Internal Medicine; PCP Internal Medicine
DX: R07.89 Other chest pain (principal); I25.10 Atherosclerotic heart disease of native coronary artery without angina pectoris; Z95.1 Presence of aortocoronary bypass graft; E78.00 Pure hypercholesterolemia, unspecified; I10 Essential (primary) hypertension; Z79.82 Long term (current) use of aspirin; Z79.899 Other long term (current) drug therapy
CPT/HCPCS: 71045; 80048; 84484; 85025; 93005; 99285; A4216

== ENCOUNTER → 2019-05-18 | Outpatient (CLI) | payer MEDICARE, OTHER, SELFPAY ==
[2019-05-16 14:24] VITALS: BMI 41.6
--- NOTE | 2019-05-18 12:10 | STEWCON_ITS ---
Reason For Study: Chest Pain Stress Results Protocol: Dobutamine Stress Echo Maximum Predicted HR: 147 bpm Target HR: 125 bpm % Maximum Predicted HR: 93 % DurationHeart Rate Stage (mm:ss) (bpm) BP Comment Baseline 65 158/86No Chest Pain; Diluted Definity 4 ML Given DSE 10 MCG 3:01 76 138/69No Chest Pain DSE 20 MCG 3:54 137 153/70No Chest Pain Recovery 84 160/87No Chest Pain Stress Duration: 6:55 mm:ss Maximum Stress HR: 137 bpm METS: 1 Baseline Echocardiogram Findings The estimated ejection fraction is 65 %. Stress Echo Wall motion Data Resting WM Intermediate WM Stress WM Resting Wall Motion Wall Motion Stress No regional wall motion No regional wall motion abnormalities noted. abnormalities noted. EKG Data The baseline ECG displays normal sinus rhythm. The patient was titrated from 10 mcg to a maximum of 20 mcg of dobutamine during the stress. The maximum heart rate attained was 139 beats per minute. This was 94% of maximum predicted heart rate. During dobutamine infusion, there were no ST or T wave changes noted to suggest ischemia. No clinical angina was noted. Interpretation Summary The estimated ejection fraction is 65 %. Normal, adequate, dobutamine echocardiogram. Negative for ischemia by EKG and echocardiographic criteria. No anginal symptoms noted. Rare PVC noted. Appropriate blood pressure response to dobutamine. Test terminated due to attainment of target heart rate. Final LVEF is 75%. Decreased sensitivity due to poor echo windows requiring Definity agent. No complications. The study was technically difficult. Contrast injection was performed. Ordering Physician: Thang Hernandez Referring Physician: Margaret Ariza Performed By: Sim Ruiz RCS
== END | disposition home or self-care (01) ==
LOC: CVS 12:10
PROVIDERS: Family Provider Internal Medicine; PCP Internal Medicine; Referring Provider Internal Medicine Cardiovascular Disease; Visit Provider Internal Medicine Cardiovascular Disease
DX: I25.10 Atherosclerotic heart disease of native coronary artery without angina pectoris (principal); Z95.1 Presence of aortocoronary bypass graft; Z95.5 Presence of coronary angioplasty implant and graft; R07.9 Chest pain, unspecified
CPT/HCPCS: 93017; 93350; J7040; Q9957; A4216; C8928

== ENCOUNTER → 2020-02-28 14:16 | Outpatient (CLI) | payer MEDICARE, OTHER, SELFPAY ==
[2019-08-22 13:35] VITALS: BMI 41.2
[2020-02-28 15:57] LABS: PSA,Total- Diagnostic 2.86 ng/mL (0.0-4.0)
== END ==
PROVIDERS: PCP Internal Medicine; Referring Provider Urology; Visit Provider Urology
DX: R97.20 Elevated prostate specific antigen [PSA] (principal)
CPT/HCPCS: 36415; 84153

== ENCOUNTER → 2020-03-21 07:15 | Outpatient (CLI) | payer MEDICARE, OTHER, SELFPAY ==
[2019-08-22 13:35] VITALS: BMI 41.2
[2020-03-21 07:29] LABS: Bacteria 0 SEEN /hpf (None Seen); Red Blood Cells-Urine 0 SEEN /hpf (0-5); White Blood Cells 0 SEEN /hpf (0-5)
[2020-03-21 08:22] LABS: Absolute Lymphocyte Count 1.68 X10^3/uL (0.83-4.51); Absolute Neutrophil Count 2.7 X10^3/uL (2.0-7.7); Basophil# 0.03 X10^3/uL; Basophil% 0.6 % (0-1); Eosinophil# 0.15 X10^3/uL; Hematocrit 45.1 % (40-54); Hemoglobin 13.9 g/dL (13.0-16.5); Lymphocyte # 1.68 X10^3/ul (4.0); Mean Corp Hgb Conc 30.8 g/dL (32-36); Mean Corpuscular Hgb 28.8 pg (27.0-32.0); Mean Corpuscular Volume 93.6 fL (80-94); Mean Platelet Vol. 10.2 fl (6.2-12.0); Monocyte# 0.39 X10^3/uL; Monocyte% 7.9 % (0-10); NRBC Flagged by Analyzer 0 % (0-5); Neutrophil # 2.68 X10^3/uL (2.7-7.7); Neutrophil % 54.3 % (47-70); Platelet Count 199 K/mm3 (150-450); RBC Distribution Width SD 44.6 fl (35.1-43.9); Red Blood Count 4.82 M/mm3 (4.6-6.2); White Blood Count 4.9 K/mm3 (4.4-11.0)
[2020-03-21 08:36] LABS: Color, Urine Yellow (Yellow); Glucose, Dipstick Normal (Normal); Ketone-Dipstick Negative (Negative); Leukocyte Esterase-Dipstick Negative /ul (Negative); Nitrite-Dipstick Negative (Negative); Occult Blood-Urine Negative /ul (Negative); Protein-Dipstick Negative (Negative); Specific Gravity, Urine 1.025 (1.002-1.030); Urine Bilirubin Dipstick Negative (Negative); Urine Clarity Clear (Clear); Urine Urobilinogen Normal (Normal)
[2020-03-21 08:43] LABS: Microalbumin,Random Urine 13.6 mg/L (NO RANGE EST.); Microalbumin:Creatinine Ratio 5.7 mg/g CRE (<30 mg/g CRE)
[2020-03-21 08:48] LABS: Mucous, Urine 2+ /hpf (<or=2+); Squamous Epithelial Cells - UA 0-5 SEEN /hpf (0-5)
[2020-03-21 08:53] LABS: ALB/GLOB Ratio 0.9 RATIO (0.9-2.4); AST(SGOT) 43 U/L (15-37); Alanine Aminotransfer ALT/SGPT 34 U/L (16-61); Albumin, Serum 3.5 g/dL (3.2-5.0); Alkaline Phosphatase 59 U/L (45-117); Anion Gap 5 (5-15); BUN 22 mg/dL (7-18); BUN/Creat Ratio 20.4 RATIO (10-20); Calcium,Total 8.5 mg/dL (8.5-10.1); Chloride 106 mmol/L (98-107); Cholesterol 131 mg/dL (200); Creatinine, Serum 1.08 mg/dL (0.70-1.30); EST Glomerular Filtration Rate 71 mL/min (>60); Est Glom Filt Rate - Afr Amer 86 mL/min (>60); Globulin 3.8 g/dL (2.2-4.2); Glucose 103 mg/dL (74-106); High Density Lipoprotein 36 mg/dL; PSA,Total - Annual Screen 2.74 ng/mL (0.00-4.00); Potassium 4.4 mmol/L (3.5-5.1); Protein, Total 7.3 g/dL (6.4-8.2); Sodium Level 142 mmol/L (136-145); Thyroid Stim Hormone (TSH) 1.27 uIU/mL (0.358-3.74); Triglycerides 140 mg/dL; Very Low Density Lipoprotein 28 mg/dL (5-40)
[2020-03-21 09:21] LABS: Vitamin D,25 Hydroxy 31.4 ng/mL
== END ==
PROVIDERS: PCP Internal Medicine; Referring Provider Internal Medicine; Visit Provider Internal Medicine
DX: E55.9 Vitamin D deficiency, unspecified (principal); Z12.5 Encounter for screening for malignant neoplasm of prostate; R73.09 Other abnormal glucose; E78.00 Pure hypercholesterolemia, unspecified
CPT/HCPCS: 36415; 80053; 80061; 81001; 82043; 82306; 82570; 84153; 84443; 85025; G0103

== ENCOUNTER 2020-11-25 15:34 | Observation (INO) | payer MEDICARE, OTHER, SELFPAY ==
[2020-03-29 11:04] VITALS: BMI 40.1
[2020-11-25] VITALS (9 sets, daily range): BP systolic 146–180; BP diastolic 62–83; PULSE 62–69; RESP 18–20; TEMP 36.9; O2SAT 92–94; BMI 41.7; BMI 40.5
--- NOTE | 2020-11-25 15:49 | EKG12_ITS ---
Test Reason : CP ADMIT Blood Pressure : / mmHG Vent. Rate : 072 BPM Atrial Rate : 072 BPM P-R Int : 248 ms QRS Dur : 088 ms QT Int : 404 ms P-R-T Axes : 057 062 070 degrees QTc Int : 442 ms Sinus rhythm with 1st degree A-V block Nonspecific ST abnormality Abnormal ECG When compared with ECG of 25-NOV-2020 16:46, MANUAL COMPARISON REQUIRED, DATA IS UNCONFIRMED Confirmed by NJ TALBOT, DANY ([id number]), desk editor NIRALI CASTILLO ([id number]) on 11/27/2020 10:58:26 AM Referred By: DR SHETTY Confirmed By:DANY MAURO MD
--- NOTE | 2020-11-25 15:49 | ED.VIS.GEN ---
History of Present Illness Chief Complaint: Chest Pain Informant: Patient Onset: Today Current Severity: Mild Maximum Severity: Moderate Narrative: Patient present secondary to chest pain. He states around noon today he developed pain in his lower sternum and epigastric region. He initially thought maybe he was just hungry but pain did not resolve with eating. He took 3 sublingual nitroglycerin and pain improved from a 6 down to a 3. He was transported via EMS and was given aspirin in the squad. Patient reports some chronic shortness of breath that was not significantly changed from baseline. He states he did break out in a slight sweat. Patient has extensive cardiac history with a double bypass surgery and 7 cardiac stents. 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 (4) H/O coronary artery bypass surgery Status: Resolved Comment: CABG X2: SHEA to LAD and left radial artery graft to the PDA 11/03/2001 (5) History of coronary artery stent placement Status: Resolved Comment: DANIEL to Prox RCA 02/20/1998; DANIEL to distal RCA to proximal right PDA w/ 2.75 x 38 mm Synergy; DANIEL to mid-distal RCA w/ 3.5 x 16 mm Synergy and DANIEL-Prox RCA w/ 4.0 x 8 mm Synergy 02/12/2016; DANIEL- Prox-Mid OM1 w/ 2.5 x 16 mm Promus Premier, and DANIEL-Prox LCX 3.0 x 12 mm Promus Premier 03/12/2016 Past Medical History - Allergies and Home Meds Allergies/Adverse Reactions: Allergies No Known Allergies Allergy (Verified 11/25/20 15:39) Primary Care Physician: Margaret Ariza DO [Primary Care Provider] - Surgical History: coronary bypass surgery Smoking Status: Former smoker - Family History Paternal Family History: Family History (Last Reviewed 03/29/20 @ 11:[address] Panchito Estrada MD) Father CABG CAD (coronary artery disease) Mother Cancer Family History: Reports: Heart Disease - Story of CABG Review of Systems General: Denies: Chills, Fever Eyes: Denies: Visual changes - bilaterally ENT: Denies: Bilateral ear pain Cardiovascular: Reports: Chest pain Respiratory: Reports: Dyspnea. Denies: Cough Gastrointestinal: Denies: Abdominal pain, Nausea, Vomiting, Diarrhea Musculoskeletal: Denies: Swelling, Extremity Pain Skin: Denies: Rash Neurological: Denies: Headache Hematologic: Denies: Easy bruising, Easy bleeding Allergy: Denies: Uticaria Physical Exam Vital Signs/Narrative: Vital Signs Temp Pulse Resp BP Pulse Ox 11/25/20 15:34 98.4 F 69 19 H 149/67 H 94 Inital Vital Signs reviewed: Yes General: Well nourished, Well developed Head: Normocephalic ENT: Moist mucous membranes Neck: Supple Cardiovascular: Regular rate, Regular rhythm Respiratory: No distress, CTA bilaterally Abdomen: Soft, Nontender, Hypoactive bowel sounds Extremities: Nontender, Edema - 1+ bilateral lower extremity edema, symmetric Skin: Normal color Neurological: Alert, Oriented x3 Psychological: Normal affect Diagnostic/Tx/Re-eval Chest X-Ray - ED: 1 View, Read by ED Physician, Chronic Changes Impressions Chest X-Ray 11/25/20 16:00 IMPRESSION: No definite acute or significant abnormality seen. Electronically Signed: Seth Godwin MD at 16:23 EST , Service support , 11/25/20 16:00 Chest 1 View (Portable) [RAD] Stat Laboratory Results 11/25/20 11/25/20 15:48 15:48 WBC 6.3 RBC 4.80 Hgb 13.7 Hct 43.2 MCV 90.0 MCH 28.5 MCHC 31.7 L RDW Std Deviation 42.0 RDW Coeff of Kelsey 12.8 Plt Count 210 MPV 10.2 Immature Gran % (Auto) 0.300 Neut % (Auto) 71.8 H Lymph % (Auto) 19.3 [place] % (Auto) 5.2 Eos % (Auto) 2.9 Baso % (Auto) 0.5 Absolute Neuts (auto) 4.5 Absolute Lymphs (auto) 1.22 Nucleated RBC % 0 Sodium 139 Potassium 3.9 Chloride 104 Carbon Dioxide 30.0 Anion Gap 5 BUN 15 Creatinine 1.11 Estim Creat Clear Calc 57.50 Est GFR (MDRD) Af Amer 83 Est GFR (MDRD) Non-Af 69 BUN/Creatinine Ratio 13.5 Glucose 160 H Calcium 8.6 Troponin I < 0.015 - EKG Initial EKG Interpretation: Sinus Rhythm - Sinus at [address] change. Follow-up EKG Interpretation: Sinus Rhythm - Sinus at 62 with no acute ischemia. - Medical Decision Making Patient had taken 3 nitro prior to arrival and was given aspirin with EMS. He is placed on can technician and had no arrhythmias noted while in the emergency room. Patient was given Nitropaste as well as 2 mg of morphine as he rated his pain at only 3 on initial evaluation. On repeat exam patient states his pain is actually worsened back up to a 6 or 7. He does state now that when he presses on his epigastrium he feels pain coming back up in his chest and wonders if this may be reflux. Patient will be given a GI cocktail and a repeat EKG is being obtained. In light of the patient's significant cardiac history I do feel he should be observed overnight for cycling of cardiac enzymes. I will speak with the hospitalist. ED Disposition - Plan for ED Patient: Disposition: Acute Care Hospital [facility] Diagnosis: Chest pain Referrals: Margaret Ariza DO [Primary Care Provider] -
[2020-11-25 15:56] LABS: Absolute Lymphocyte Count 1.22 X10^3/uL (0.83-4.51); Absolute Neutrophil Count 4.5 X10^3/uL (2.0-7.7); Basophil# 0.03 X10^3/uL; Basophil% 0.5 % (0-1); Eosinophil# 0.18 X10^3/uL; Eosinophils% 2.9 % (0-5); Hematocrit 43.2 % (40-54); Hemoglobin 13.7 g/dL (13.0-16.5); Lymphocyte # 1.22 X10^3/ul (4.0); Lymphocyte % 19.3 % (19-41); Mean Corp Hgb Conc 31.7 g/dL (32-36); Mean Corpuscular Hgb 28.5 pg (27.0-32.0); Mean Platelet Vol. 10.2 fl (6.2-12.0); Monocyte# 0.33 X10^3/uL; Monocyte% 5.2 % (0-10); NRBC Flagged by Analyzer 0 % (0-5); Neutrophil # 4.53 X10^3/uL (2.7-7.7); Neutrophil % 71.8 % (47-70); Platelet Count 210 K/mm3 (150-450); RBC Distribution Width CV 12.8 % (11.6-14.6); White Blood Count 6.3 K/mm3 (4.4-11.0)
[2020-11-25] MEDS: Morphine 4 MG/ML Syringe 2 MG IV (15:56)
[2020-11-25] MEDS: Nitroglycerin Oint 1 INCH PACKET TRANSDERM. (15:56)
[2020-11-25] MEDS: Ondansetron 4 MG/2 ML Vial IV (15:56)
--- NOTE | 2020-11-25 16:00 | RAD_ITS ---
STUDY: X-RAY CHEST REASON FOR EXAM: Male, 75 years old. sternal pain that started today at noon. TECHNIQUE: Single AP portable view of the chest. COMPARISON: 05/16/2019. FINDINGS: The lungs are clear and expanded. There is no demonstrated pleural abnormality. Normal size heart. There has been previous CABG. Normal mediastinum and darshan. Normal visualized pulmonary arteries. Normal visualized aortic arch and descending thoracic aorta. Normal visualized thoracic spine. Normal visualized ribs, clavicles, and shoulders. There is no demonstrated abnormality of the visualized soft tissue structures of the upper abdomen. RAD/Chest 1 View (Portable) IMPRESSION: No definite acute or significant abnormality seen. Electronically Signed: Seth Godwin MD at 16:23 EST , Service support ,
[2020-11-25 16:23] LABS: Anion Gap 5 (5-15); BUN 15 mg/dL (7-18); BUN/Creat Ratio 13.5 RATIO (10-20); Calcium,Total 8.6 mg/dL (8.5-10.1); Chloride 104 mmol/L (98-107); Creatinine, Serum 1.11 mg/dL (0.70-1.30); EST Glomerular Filtration Rate 69 mL/min (>60); Est Glom Filt Rate - Afr Amer 83 mL/min (>60); Glucose 160 mg/dL (74-106); Potassium 3.9 mmol/L (3.5-5.1); Sodium Level 139 mmol/L (136-145)
--- NOTE | 2020-11-25 16:40 | EKG12_ITS ---
Test Reason : CHEST PAIN AGAIN Blood Pressure : / mmHG Vent. Rate : 062 BPM Atrial Rate : 062 BPM P-R Int : 252 ms QRS Dur : 086 ms QT Int : 410 ms P-R-T Axes : 056 051 063 degrees QTc Int : 416 ms Sinus rhythm with 1st degree A-V block Otherwise normal ECG Confirmed by HAYDEN TALBOT, MARY ([id number]), editorial intern NANCY BURDEN ([id number]) on 11/29/2020 1:26:46 PM Referred By: VEENA Confirmed By:MARY BLAKE MD
[2020-11-25] MEDS: Mag Hydrox/Al Hydrox/Simeth 30 ML UDC PO (16:45)
[2020-11-25] MEDS: HYDROmorphone 0.5 MG/0.5 ML SYRINGE IV (17:16)
[2020-11-25 17:27] LABS: Lipase 133 U/L (73-393)
[2020-11-25 17:28] LABS: AST(SGOT) 35 U/L (15-37); Alanine Aminotransfer ALT/SGPT 27 U/L (16-61); Albumin, Serum 3.5 g/dL (3.2-5.0); Alkaline Phosphatase 68 U/L (45-117); Bilirubin, Direct 0.08 mg/dL (0.00-0.30); Globulin 3.7 g/dL (2.2-4.2); Protein, Total 7.2 g/dL (6.4-8.2)
--- NOTE | 2020-11-25 17:57 | PCM.HP.STD ---
History of Present Illness Date of Admission: 11/25/20 Mr. Corey is a 75 year old WM with a PMH of CAD status post CABG x2 and multiple stents with the last stent being in 2016, HTN, HPL, BPH, and morbid obesity who presented to the emergency department on 11/25/2020 with chest pain that developed today at approximately 10:00. The patient states he was sitting in a chair when he had acute onset chest pain substernally and inferior in his chest. He states that he felt like he had a bubble there and almost as if he was hungry. He tried to eat and that did not change his symptoms at all. He did take some nitroglycerin and had some resolution of his symptoms with this. He reports that his pain went from a 6 to a 3 with nitroglycerin. He reports that the pain does not radiate anywhere. He points to the epigastrium when you ask him where the pain is located. He denies any associated shortness of breath, nausea, or vomiting. He is does admit that he had some diaphoresis with the first episode he experienced this morning. He has known coronary disease with his last stress test being in May 2019. EF on the stress test was 65% and was negative for ischemic changes by EKG or echocardiographic criteria. Patient had no symptoms associated with the test either. He states overall until today he had been doing well. He was given a GI cocktail in the emergency department with no resolution of his symptoms. Vital signs in the emergency department were relatively stable with the exception of some mild hypertension. Laboratory data show a CBC that is within normal limits. His BMP was overall unremarkable. His liver enzymes were within normal limits and his lipase was within normal limits as well. His initial troponin was less than 0.015. His EKG shows a first-degree heart block with no ST-T wave changes that are consistent with acute ischemia. Chest x-ray was negative for any acute findings. He will be admitted to PCU for further cardiac work-up given his considerable past medical history for coronary disease. Past Medical History Past Medical History (Chronic Problems): Chronic Problems (Last Reviewed 03/29/20 @ 11:[address] Panchito Estrada MD) Atherosclerotic heart disease of [place] coronary artery without angina pectoris (Chronic) Old inferior wall myocardial infarction (Chronic 02/20/98) Essential (primary) hypertension (Chronic) Hyperlipidemia (Chronic) Medical History: Medical History (Last Reviewed 11/25/20 @ 18:[address] Jess Mota, DO) Atherosclerotic heart disease of [place] coronary artery without angina pectoris (Chronic) I25.10 Old inferior wall myocardial infarction (Chronic) Onset Date: 02/20/98 I25.2 Essential (primary) hypertension (Chronic) I10 Hyperlipidemia (Chronic) E78.5 Ischemic cardiomyopathy (Resolved) I25.5 Allergies No Known Allergies Allergy (Verified 11/25/20 15:39) Home Medications: Ambulatory Orders Medication Instructions Recorded Aspirin [Aspirin, Baby] 81 mg PO DAILY@0800 01/24/16 Dutasteride [Avodart] 0.5 mg PO DAILY 01/24/16 Multivitamins,Therapeutic 1 tab PO DAILY 01/24/16 [Multivitamin] nitroglycerin 0.4 mg sublingual 0.4 mg SUBLINGUAL Q5M PRN #25 tab 10/28/19 tablet fenofibrate 160 mg tablet 160 mg PO DAILY #90 tab 03/08/20 alfuzosin 10 mg tablet,extended 10 mg PO DAILY 03/29/20 release 24 hr clopidogrel 75 mg tablet 75 mg PO DAILY #90 tab 10/30/20 losartan 100 mg tablet 100 mg PO DAILY #90 tab 10/30/20 metoprolol tartrate 50 mg tablet 50 mg PO BID #180 tab 10/30/20 simvastatin 40 mg tablet 40 mg PO QHS #90 tab 10/30/20 Vit C/E/Zn/Coppr/Lutein/Zeaxan 1 ea PO BID 11/25/20 [Preservision Areds 2 Softgel] Surgical History: Surgical History (Last Reviewed 11/25/20 @ 18:[address] Jess Mota, DO) H/O coronary artery bypass surgery (Resolved) Onset Date: 11/03/01 Z95.1 CABG X2: SHEA to LAD and left radial artery graft to the PDA 11/03/2001 History of coronary artery stent placement (Resolved) Onset Date: 03/12/16 Z95.5 DANIEL to Prox RCA 02/20/1998; DANIEL to distal RCA to proximal right PDA w/ 2.75 x 38 mm Synergy; DANIEL to mid-distal RCA w/ 3.5 x 16 mm Synergy and DANIEL-Prox RCA w/ 4.0 x 8 mm Synergy 02/12/2016; DANIEL- Prox-Mid OM1 w/ 2.5 x 16 mm Promus Premier, and DANIEL-Prox LCX 3.0 x 12 mm Promus Premier 03/12/2016 Surgical History: coronary bypass surgery Psychiatric History: No pertinent psych hx Lives: Alone Smoking Status: Former smoker Alcohol: Rare Drugs: None - *Family History Paternal Family History: Family History (Last Reviewed 11/25/20 @ 18:[address] Jess Mota, DO) Father CABG CAD (coronary artery disease) Mother Cancer History Items: Heart Disease - Story of CABG Review of Systems Constitutional: Denies: Anorexia, Chills, Malaise, Weakness, Weight Change, Fatigue Eyes: Denies: Blurred vision, Conjunctivae Inflammation, Double vision, Drainage, Eyelid Inflammation, Pain, Redness, Vision Change HEENT: Denies: Difficulty Hearing, Dysphasia, Ear Pain, Eye Pain, Head Aches, Nasal bleeding, Nasal Congestion, Post Nasal Drip, Sinus Congestion, Sinus Drainage, Sore Throat, Visual Changes Cardiovascular: Reports: Chest Pain, Chest Pressure. Denies: Claudication, Chest Tightness, Edema, Heaviness, Light Headedness, Orthopnea, Palpitations, Paroxysmal Noc. Dyspnea, Syncope Respiratory: Denies: Cough, Hemoptysis, Pleuritic Pain, Shortness of Breath, Shortness of breath at rest, Shortness of breath upon exertion, Sputum production, Wheezing Gastrointestinal: Reports: Dyspepsia. Denies: Abdominal Pain, Constipation, Diarrhea, Hematemesis, Hematochezia, Nausea, Melena, Vomiting Genitourinary: Reports: Frequency, Hesitancy, Nocturia. Denies: Dysuria, Hematuria, Incontinence, Retention, Urgency Musculoskeletal: Denies: Arm Pain, Hand Pain, Joint Pain, Joint stiffness, Joint swelling, Joint Tenderness, Leg Pain, Muscle pain, Neck Pain Skin: Denies: Dryness, Jaundice, Lesions, Pruritis, Rash, Skin Changes, Wounds Neurological: Denies: Balance problems, Blurred vision, Double vision, Change in Speech, Slurred speech, Confusion, Difficulty swallowing, Focal weakness, Headaches, Incoordination, Numbness, Tingling, Tremor, Seizures Psychiatric: Denies: Anxiety, Depression Endocrine: Denies: Change in Body Habitus, Heat/ Cold Intolerance, Polydipsia Hematologic/ Lymphatic: Denies: Adenopathy, Anemia, Easy Bruising, Easy Bleeding, Petechiae, Purpura VTE Information - Inpt Only VTE Present on Admission: No VTE Mechan Device Prophylaxis: None VTE Pharm Prophylaxis ordered?: Yes Patient Problems: Active and Suspected Problems (Last Reviewed 03/29/20 @ 11:[address] Panchito Estrada MD) Chest pain (Acute) - Physical Exam Vitals/I&O's: Vital Signs Temp Pulse Resp BP Pulse Ox 98.4 F 62 20 H 174/69 H 94 11/25/20 17:16 11/25/20 17:16 11/25/20 17:16 11/25/20 17:16 11/25/20 17:16 Oxygen Delivery Method Room Air Weight: 128.2 kg Body Mass Index (BMI) 41.7 General: Alert, Oriented x3, Cooperative, No apparent distress, Well developed, Well nourished, - - Older white male sitting up in bed, appears nontoxic, calm HEENT: Atraumatic, PERRLA, EOMI, Normocephalic, EAC Clear Oral: Moist Mucosa, No Gingival or Mucosal Lesions/ Ulcerations, - - Mallampati 3 Neck: Supple, No JVD, Negative Carotid Bruits, Negative Hepatojugular Reflux, No Nodes, No Nuchal Rigidity, Trachea Midline, Thyroid Normal Size and Texture Lungs: Clear to auscultation, Normal air movement, No rhonchi, No rales Cardiovascular: Regular rate, Regular Rhythm, Normal S1, Normal S2, No murmurs, No Ectopic Activity, No rub noted, No Gallop Abdomen: Bowel Sounds Present, Soft, Non-Distended, Obese, Tender - Inferior chest/epigastrium Extremities: No clubbing, No cyanosis, No edema, Capillary Refill Less than 3 Seconds, Peripheral Pulses Normal Skin: No rashes, No breakdown Musculoskeletal: No Tenderness to Palpation of Joints or Extremities, No Muscle Wasting, Arthritic Changes Lymphatic: No Cervical, Supraclavicular, or Inguinal Adenopathy Neurological: Cranial nerves II-XII grossly intact, Deep Tendon Reflexes 2+/4 and Symmetrical, Neuro grossly intact, Muscle tone normal, Coordination normal Psych/Mental Status: Normal Affect, Appropriate Laboratory Results 11/25/20 15:48: WBC 6.3, RBC 4.80, Hgb 13.7, Hct 43.2, MCV 90.0, MCH 28.5, MCHC 31.7 L, RDW Std Deviation 42.0, RDW Coeff of Kelsey 12.8, Plt Count 210, MPV 10.2, Immature Gran % (Auto) 0.300, Neut % (Auto) 71.8 H, Lymph % (Auto) 19.3, Hand % (Auto) 5.2, Eos % (Auto) 2.9, Baso % (Auto) 0.5, Absolute Neuts (auto) 4.5, Absolute Lymphs (auto) 1.22, Nucleated RBC % 0 11/25/20 15:48: Sodium 139, Potassium 3.9, Chloride 104, Carbon Dioxide 30.0, Anion Gap 5, BUN 15, Creatinine 1.11, Estim Creat Clear Calc 57.50, Est GFR (MDRD) Af Amer 83, Est GFR (MDRD) Non-Af 69, BUN/Creatinine Ratio 13.5, Glucose 160 H, Calcium 8.6, Troponin I < 0.015 11/25/20 15:48: Total Bilirubin 0.30, Direct Bilirubin 0.08, AST 35, ALT 27, Alkaline Phosphatase 68, Total Protein 7.2, Albumin 3.5, Globulin 3.7 11/25/20 15:48: Lipase 133 Assessment/Plan All Active Problems (Last Reviewed 03/29/20 @ 11:[address] Panchito Estrada MD) Chest pain (Acute) H/O coronary artery bypass surgery (Resolved 11/03/01) History of coronary artery stent placement (Resolved 03/12/16) Chest pain (Resolved) Ischemic cardiomyopathy (Resolved) Acute chest pain -With patient's extensive history of coronary disease will admit for further cardiac work-up -Overall the symptoms appear to be a little more GI related but given that GI cocktail did not relieve symptoms at all it is a bit more concerning -Liver enzymes and lipase are within normal limits -Cycle cardiac enzymes -If cardiac enzymes stay within normal limits will proceed with stress test in a.m. -Check lipids -Continue aspirin/Plavix/metoprolol/losartan/simvastatin -As needed nitroglycerin -Start PPI Hypertension -Continue metoprolol and losartan CAD status post CABG x2/PCI -Most recent PCI was performed in 2016 per records -CABG was x2 in 2001 -Continue aspirin Plavix -See above BPH -Continue Avodart DVT prophylaxis -Lovenox daily CODE STATUS -Full code Inpatient E&M: 16409 Init Hosp L3
--- NOTE | 2020-11-25 18:01 | EKG12_ITS ---
Test Reason : CP Blood Pressure : / mmHG Vent. Rate : 068 BPM Atrial Rate : 068 BPM P-R Int : 242 ms QRS Dur : 086 ms QT Int : 400 ms P-R-T Axes : 061 060 068 degrees QTc Int : 425 ms Sinus rhythm with 1st degree A-V block Otherwise normal ECG Confirmed by HAYDEN TALBOT, MARY ([id number]), [employer] NANCY BURDEN ([id number]) on 11/29/2020 1:27:09 PM Referred By: MARLO Confirmed By:MARY BLAKE MD
[2020-11-25] MEDS: Metoprolol Tartrate 50 MG Tablet PO (20:08)
[2020-11-25] MEDS: Atorvastatin Calcium 20 MG Tablet PO (20:09)
[2020-11-25] MEDS: Morphine 4 MG/ML Syringe IV (20:11)
[2020-11-26] VITALS (7 sets, daily range): BP systolic 140–154; BP diastolic 70–74; PULSE 68–76; RESP 16–18; TEMP 36.7–37.2; O2SAT 92–94
[2020-11-26 06:29] LABS: Absolute Lymphocyte Count 1.17 X10^3/uL (0.83-4.51); Absolute Neutrophil Count 7.8 X10^3/uL (2.0-7.7); Basophil# 0.03 X10^3/uL; Basophil% 0.3 % (0-1); Eosinophil# 0.13 X10^3/uL; Eosinophils% 1.3 % (0-5); Hematocrit 43.2 % (40-54); Hemoglobin 13.4 g/dL (13.0-16.5); Lymphocyte # 1.17 X10^3/ul (4.0); Lymphocyte % 11.8 % (19-41); Mean Corpuscular Hgb 28.3 pg (27.0-32.0); Mean Corpuscular Volume 91.1 fL (80-94); Mean Platelet Vol. 9.9 fl (6.2-12.0); Monocyte# 0.74 X10^3/uL; Monocyte% 7.4 % (0-10); NRBC Flagged by Analyzer 0 % (0-5); Neutrophil # 7.83 X10^3/uL (2.7-7.7); Neutrophil % 78.8 % (47-70); Platelet Count 201 K/mm3 (150-450); RBC Distribution Width CV 12.7 % (11.6-14.6); RBC Distribution Width SD 42.2 fl (35.1-43.9); Red Blood Count 4.74 M/mm3 (4.6-6.2); White Blood Count 9.9 K/mm3 (4.4-11.0)
[2020-11-26 07:00] LABS: Anion Gap 4 (5-15); BUN 13 mg/dL (7-18); BUN/Creat Ratio 12.1 RATIO (10-20); Calcium,Total 8.8 mg/dL (8.5-10.1); Chloride 104 mmol/L (98-107); Cholesterol 135 mg/dL (200); Creatinine, Serum 1.07 mg/dL (0.70-1.30); EST Glomerular Filtration Rate 72 mL/min (>60); Est Glom Filt Rate - Afr Amer 87 mL/min (>60); Estimated Creatinine Clearance 59.65 ml/min; Glucose 113 mg/dL (74-106); High Density Lipoprotein 43 mg/dL; Potassium 4.4 mmol/L (3.5-5.1); Sodium Level 139 mmol/L (136-145); Triglycerides 117 mg/dL; Very Low Density Lipoprotein 23 mg/dL (5-40)
--- NOTE | 2020-11-26 07:59 | NURSING ---
Pt down for stress test.
--- NOTE | 2020-11-26 10:47 | STRESSREP ---
Stress Test Report Pharmacologic myocardial perfusion stress test. 75-year-old male with a history of chest pain. Stress protocol: Resting EKG demonstrates normal sinus rhythm with a rate of 77 bpm normal intervals are noted resting blood pressure is 128/70 mmHg. 0.4 mg of regadenoson was infused per usual protocol followed by rapid intravenous saline flush injection continuous EKG monitoring was performed. The maximum heart rate was 104 bpm which was 71% of max impacted heart rate the maximum workload was 1 metabolic equivalent. At rest there were no ST or T wave changes noted to suggest abnormal flow reserve at peak infusion nonspecific ST-T wave changes were noted with no meet the criteria for ischemia. The peak blood pressure was 138/74 mmHg. Myocardial perfusion protocol. 14.2 mCi of technetium 99m sestamibi was injected at rest. 0.4 mg of regadenoson was infused per usual protocol. At peak infusion 44.6 mCi of technetium 99m sestamibi was injected stress images were obtained stress and rest images were reconstructed and compared in the short axis vertical long horizontal long axis. Gated images were also obtained Perfusion SPECT analysis: Review of the stress images demonstrate normal uptake of tracer noted in all areas of the myocardium the inferior wall however appears to have a reduced perfusion pattern. The resting images demonstrate a similar patent. No improvement is noted to suggest ischemia. The above is suggestive of a basal inferior infarct. Gated SPECT analysis: The gated ejection fraction is 71%. Conclusion: Pharmacologic myocardial perfusion stress test with no evidence of ischemia. Preserved ejection fraction.
--- NOTE | 2020-11-26 11:27 | DCINST_ITS ---
- Discharge Diagnoses Current Active Problems: Current Active and Chronic Problems (Last Reviewed 11/25/20 @ 18:[address] 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) Essential (primary) hypertension (Chronic) Hyperlipidemia (Chronic) You will use the following diet at home:: Cardiac Your food should be the consistency of: Regular Discharge Activity: Return to Normal Activity Weight Bearing Status: Weight bearing as tolerated Call your doctor if you observe: Fever of 101 or Higher, Shortness of breath, Dizziness, Fainting spells, Chest pain, Increased palpitations (irregular heartbeat), Uncontrolled pain Allergies/Adverse Reactions: Allergies No Known Allergies Allergy (Verified 11/25/20 15:39) Medications to take at Discharge Aspirin [Aspirin, Baby] 81 mg PO DAILY@0800 01/24/16 Dutasteride [Avodart] 0.5 mg PO DAILY 01/24/16 Multivitamins,Therapeutic [Multivitamin] 1 tab PO DAILY 01/24/16 nitroglycerin 0.4 mg sublingual tablet 0.4 mg SUBLINGUAL Q5M PRN #25 tab 10/28/19 fenofibrate 160 mg tablet 160 mg PO DAILY #90 tab 03/08/20 alfuzosin 10 mg tablet,extended release 24 hr 10 mg PO DAILY 03/29/20 clopidogrel 75 mg tablet 75 mg PO DAILY #90 tab 10/30/20 losartan 100 mg tablet 100 mg PO DAILY #90 tab 10/30/20 metoprolol tartrate 50 mg tablet 50 mg PO BID #180 tab 10/30/20 simvastatin 40 mg tablet 40 mg PO QHS #90 tab 10/30/20 Vit C/E/Zn/Coppr/Lutein/Zeaxan [Preservision Areds 2 Softgel] 1 ea PO BID 11/25/20 Pantoprazole Sodium [Protonix] 40 mg PO DAILY #14 tab 11/26/20 The following prescriptions were given: Pantoprazole Sodium [Protonix] 40 mg PO DAILY #14 tab Transmission Status: Pending to [id number] Primary Care Physician: Margaret Ariza DO [Primary Care Provider] - Please follow up with your Primary Care Physician in: 1-2 weeks. Test Results: Test results from this visit will be discussed in further detail at your follow- up appointment, if applicable.
[2020-11-26] MEDS: Pantoprazole Sodium 40 MG Tablet PO (11:46)
[2020-11-26] MEDS: Clopidogrel Bisulfate 75 MG Tablet PO (11:46)
[2020-11-26] MEDS: Finasteride 5 MG Tablet PO (11:46)
[2020-11-26] MEDS: Metoprolol Tartrate 50 MG Tablet PO (11:46)
[2020-11-26] MEDS: Multivitamins,Therapeutic Tablet 1 TABLET PO (11:47)
[2020-11-26] MEDS: Losartan Potassium 100 MG Tablet PO (11:47)
[2020-11-26] MEDS: Fenofibrate 145 MG Tablet PO (11:47)
[2020-11-26] MEDS: Aspirin 81 MG TAB.CHEW PO (11:47)
--- NOTE | 2020-11-26 11:59 | PCM.DC.SUM ---
Discharge Date and Diagnosis - Problem List Patient Problems: Active and Suspected Problems (Last Reviewed 11/25/20 @ 18:[address] Jess Mota DO) Chest pain (Acute) Date of Admission: 11/25/20 Date of Discharge: 11/26/20 - Primary Discharge Diagnosis Acute Problems: Active Problems (Last Reviewed 11/25/20 @ 18:[address] Jess Mota DO) Chest pain, ACS ruled out, probably due to GERD (Acute) - Secondary Discharge Diagnosis Chronic Problems: Chronic Problems (Last Reviewed 11/25/20 @ 18:[address] 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 Preserved ejection fraction. 11/26/20 1113 <Electronically signed by Panchito Estrada MD> Date Panchito Estrada MD CC: Dr. Mendy Skinner MD; Dr. Margaret Ariza DO ~ Date Dictated: 11/26/20 1047 Date Transcribed: 11/26/201046 [place]: [place] Signed Clinical Impression(s) from Imaging Studies Chest X-Ray 11/25/20 16:00 IMPRESSION: No definite acute or significant abnormality seen. Electronically Signed: Seth Godwin MD at 16:23 EST , Service support , Operations: None Procedures: EKG, Stress test Summary of Care Provided: Patient seen and examined on the day of discharge and appeared to be stable to be discharged home. He denied any more chest pain. His vitals are stable. The patient is a 75 year old M admitted for chest pain for evaluation. He had a history of CAD status post CABG and stents. His EKG revealed normal sinus rhythm with first-degree AV block, no acute skin changes. Troponin was negative x3. Chest x-ray showed no acute findings. Routine blood work was unremarkable. LFT and lipase were normal. He underwent nuclear stress test that showed no evidence of stress-induced myocardial ischemia and ejection fraction was 71%. ACS ruled out. Her symptoms could be due to GERD. Patient discharged home in a stable medical condition, started on Protonix 40 mg p.o. daily, continued on his previous home medications without any changes, recommended follow-up with PCP in 1 to 2 weeks. Patient Problems: Active and Suspected Problems (Last Reviewed 11/25/20 @ 18:[address] Jess Mota, DO) Chest pain (Acute) - Physical Exam Vitals/I&O's: Vital Signs Temp Pulse Resp BP Pulse Ox 98.0 F 74 16 140/74 H 94 11/26/20 11:40 11/26/20 11:46 11/26/20 11:40 11/26/20 11:40 11/26/20 11:40 Oxygen Flow Rate (L/min) 2 Oxygen Delivery Method Room Air Weight: 274 lb 4.081 oz Body Mass Index (BMI) 40.5 Intake and Output for Last 24 Hours 11/24/20 11/25/20 11/26/20 23:59 23:59 23:59 Output Total 500 / 500 Balance -500 / -500 General: Alert, Oriented x3, Cooperative, No apparent distress HEENT: Atraumatic, PERRLA, EOMI, Normocephalic Oral: Moist Mucosa, No Gingival or Mucosal Lesions/ Ulcerations Neck: Supple, No JVD, Negative Carotid Bruits, Trachea Midline, Thyroid Normal Size and Texture Lungs: Clear to auscultation, Normal air movement, No rhonchi, No wheeze, No rales, Diminished Cardiovascular: Regular rate, Regular Rhythm, Normal S1, Normal S2, PMI Normal Abdomen: Bowel Sounds Present, Soft, Non Tender, Non-Distended, No Hepato-splenomegaly Extremities: No clubbing, No cyanosis, Edema Skin: No rashes, No breakdown Lymphatic: No Cervical, Supraclavicular, or Inguinal Adenopathy Neurological: Cranial nerves II-XII grossly intact, Neuro grossly intact Psych/Mental Status: Normal Affect, Appropriate Laboratory Results 11/25/20 15:48: WBC 6.3, RBC 4.80, Hgb 13.7, Hct 43.2, MCV 90.0, MCH 28.5, MCHC 31.7 L, RDW Std Deviation 42.0, RDW Coeff of Kelsey 12.8, Plt Count 210, MPV 10.2, Immature Gran % (Auto) 0.300, Neut % (Auto) 71.8 H, Lymph % (Auto) 19.3, [place] % (Auto) 5.2, Eos % (Auto) 2.9, Baso % (Auto) 0.5, Absolute Neuts (auto) 4.5, Absolute Lymphs (auto) 1.22, Nucleated RBC % 0 11/25/20 15:48: Sodium 139, Potassium 3.9, Chloride 104, Carbon Dioxide 30.0, Anion Gap 5, BUN 15, Creatinine 1.11, Estim Creat Clear Calc 57.50, Est GFR (MDRD) Af Amer 83, Est GFR (MDRD) Non-Af 69, BUN/Creatinine Ratio 13.5, Glucose 160 H, Calcium 8.6, Troponin I < 0.015 11/25/20 15:48: Total Bilirubin 0.30, Direct Bilirubin 0.08, AST 35, ALT 27, Alkaline Phosphatase 68, Total Protein 7.2, Albumin 3.5, Globulin 3.7 11/25/20 15:48: Lipase 133 11/25/20 18:54: Troponin I < 0.015 11/25/20 21:20: Troponin I < 0.015 11/26/20 06:10: WBC 9.9, RBC 4.74, Hgb 13.4, Hct 43.2, MCV 91.1, MCH 28.3, MCHC 31.0 L, RDW Std Deviation 42.2, RDW Coeff of Kelsey 12.7, Plt Count 201, MPV 9.9, Immature Gran % (Auto) 0.400, Neut % (Auto) 78.8 H, Lymph % (Auto) 11.8 L, [place] % (Auto) 7.4, Eos % (Auto) 1.3, Baso % (Auto) 0.3, Absolute Neuts (auto) 7.8 H, Absolute Lymphs (auto) 1.17, Nucleated RBC % 0 11/26/20 06:10: Sodium 139, Potassium 4.4, Chloride 104, Carbon Dioxide 31.0, Anion Gap 4 L, BUN 13, Creatinine 1.07, Estim Creat Clear Calc 59.65, Est GFR (MDRD) Af Amer 87, Est GFR (MDRD) Non-Af 72, BUN/Creatinine Ratio 12.1, Glucose 113 H, Calcium 8.8, Triglycerides 117, Cholesterol 135, LDL Cholesterol 69, VLDL Cholesterol 23, HDL Cholesterol 43 Current Medications Acetaminophen (Acetaminophen 325 Mg Tablet) 650 mg PO Q6H PRN PRN PRN Reason: Pain Score 1-10/Temp > 100.7 F Al Hydroxide/Mg Hydroxide (Mag Hydrox/Al Hydrox/Simeth 30 Ml Udc) 30 ml PO Q6H PRN PRN PRN Reason: Gastric Burning Aspirin (Aspirin 81 Mg Tab.Chew) 81 mg PO DAILY@0800 [facility] Last Admin: 11/26/20 11:47 Dose: 81 mg Documented by: Atorvastatin Calcium (Atorvastatin Calcium 20 Mg Tablet) 20 mg PO QHS [facility] Last Admin: 11/25/20 20:09 Dose: 20 mg Documented by: Clopidogrel Bisulfate (Clopidogrel Bisulfate 75 Mg Tablet) 75 mg PO DAILY [facility] Last Admin: 11/26/20 11:46 Dose: 75 mg Documented by: Enoxaparin Sodium (Enoxaparin 40 Mg/0.4 Ml Syringe) 40 mg SC DAILY [facility] Fenofibrate ([facility]ate 145 Mg Tablet) [facility] Last Admin: 11/26/20 11:47 Dose: 145 mg Documented by: Finasteride (Finasteride 5 Mg Tablet) 5 mg PO DAILY [facility] Last Admin: 11/26/20 11:46 Dose: 5 mg Documented by: Sodium Chloride () 250 mls @ 15 mls/hr IV .[id number] PRN PRN Reason: Saline Flush Sodium Chloride () 250 mls @ 15 mls/hr IV .[id number] PRN PRN Reason: Additional IVPB Infusion Losartan Potassium (Losartan Potassium 100 Mg Tablet) 100 mg PO DAILY [facility] Last Admin: 11/26/20 11:47 Dose: 100 mg Documented by: Metoprolol Tartrate (Metoprolol Tartrate 50 Mg Tablet) 50 mg PO BID [facility] Last Admin: 11/26/20 11:46 Dose: 50 mg Documented by: Morphine Sulfate (Morphine 4 Mg/Ml Syringe) 4 mg IV Q3H PRN PRN PRN Reason: Pain Score 6-10 Last Admin: 11/25/20 20:11 Dose: 4 mg Documented by: Multivitamins (Multivitamins,Therapeutic Tablet) [facility] Last Admin: 11/26/20 11:47 Dose: 1 tablet Documented by: Nitroglycerin (Nitroglycerin (Inpatient Use) 0.4 Mg Tab.Subl) 0.4 mg SUBLINGUAL Q5M PRN PRN Reason: .CHEST PAIN Ondansetron HCl (Ondansetron 4 Mg/2 Ml Vial) 4 mg IV Q8H PRN PRN PRN Reason: NAUSEA/VOMITING Pantoprazole Sodium (Pantoprazole Sodium 40 Mg Tablet) 40 mg PO DAILY [facility] Last Admin: 11/26/20 11:46 Dose: 40 mg Documented by: Sodium Chloride (0.9% Saline Lock 10 Ml Syringe) 10 - 40 ml IV UD PRN PRN Reason: SALINE FLUSH Discharge Activity: Return to Normal Activity Weight Bearing Status: Weight bearing as tolerated Call your doctor if you observe: Fever of 101 or Higher, Shortness of breath, Dizziness, Fainting spells, Chest pain, Increased palpitations (irregular heartbeat), Uncontrolled pain Home Medications: Medications to take at Discharge Aspirin [Aspirin, Baby] 81 mg PO DAILY@0800 01/24/16 Dutasteride [Avodart] 0.5 mg PO DAILY 01/24/16 Multivitamins,Therapeutic [Multivitamin] 1 tab PO DAILY 01/24/16 nitroglycerin 0.4 mg sublingual tablet 0.4 mg SUBLINGUAL Q5M PRN #25 tab 10/28/19 fenofibrate 160 mg tablet 160 mg PO DAILY #90 tab 03/08/20 alfuzosin 10 mg tablet,extended release 24 hr 10 mg PO DAILY 03/29/20 clopidogrel 75 mg tablet 75 mg PO DAILY #90 tab 10/30/20 losartan 100 mg tablet 100 mg PO DAILY #90 tab 10/30/20 metoprolol tartrate 50 mg tablet 50 mg PO BID #180 tab 10/30/20 simvastatin 40 mg tablet 40 mg PO QHS #90 tab 10/30/20 Vit C/E/Zn/Coppr/Lutein/Zeaxan [Preservision Areds 2 Softgel] 1 ea PO BID 11/25/20 Pantoprazole Sodium [Protonix] 40 mg PO DAILY #14 tab 11/26/20 Following Prescriptions Were Given to Patient: Pantoprazole Sodium [Protonix] 40 mg PO DAILY #14 tab Transmission Status: [id number] Primary Care Physician: Margaret Ariza DO [Primary Care Provider] - Please follow up with your Primary Care Physician in: 1-2 weeks. Disposition: Home Medical Necessity - Tobacco Use Smoking Status: Former smoker Meaningful Use Info Meaningful Use Diagnoses (Choose all that apply): None applicable OBSV E&M: 63921 Observation care discharge
--- NOTE | 2020-11-26 12:22 | PHA.DC.MC ---
Pharmacy Service has performed discharge medication reconciliation and counseling for this patient. 1. PANTOPRAZOLE 40MG PO DAILY The patient's discharge medication list was reviewed for discrepancies and discrepancies were resolved. Home Medications Aspirin [Aspirin, Baby] 81 mg PO DAILY@0800 01/24/16 Dutasteride [Avodart] 0.5 mg PO DAILY 01/24/16 Multivitamins,Therapeutic [Multivitamin] 1 tab PO DAILY 01/24/16 nitroglycerin 0.4 mg sublingual tablet 0.4 mg SUBLINGUAL Q5M PRN #25 tab 10/28/19 fenofibrate 160 mg tablet 160 mg PO DAILY #90 tab 03/08/20 alfuzosin 10 mg tablet,extended release 24 hr 10 mg PO DAILY 03/29/20 clopidogrel 75 mg tablet 75 mg PO DAILY #90 tab 10/30/20 losartan 100 mg tablet 100 mg PO DAILY #90 tab 10/30/20 metoprolol tartrate 50 mg tablet 50 mg PO BID #180 tab 10/30/20 simvastatin 40 mg tablet 40 mg PO QHS #90 tab 10/30/20 Vit C/E/Zn/Coppr/Lutein/Zeaxan [Preservision Areds 2 Softgel] 1 ea PO BID 11/25/20 Pantoprazole Sodium [Protonix] 40 mg PO DAILY #14 tab 11/26/20 The patient was counseled on the following discharge medications and changes in medications for homegoing were reviewed. The Reason for Use, instructions for use, and potential side effects were reviewed for all new medications. The patient's questions regarding all of their medications were answered. The patient was able to verbally demonstrate an understanding of their discharge medications. Patient counseled by pharmacy assistant, Evelin.
== END 2020-11-26 11:27 | disposition home or self-care (01) ==
LOC: ED 17:02 → PCU 18:08
PROVIDERS: Admitting Provider Internal Medicine; Emergency Provider Emergency Medicine; PCP Internal Medicine; Visit Provider Hospitalist
DX: R07.89 Other chest pain (principal); I25.10 Atherosclerotic heart disease of native coronary artery without angina pectoris; I25.2 Old myocardial infarction; E78.5 Hyperlipidemia, unspecified; I10 Essential (primary) hypertension; R06.02 Shortness of breath; N40.0 Benign prostatic hyperplasia without lower urinary tract symptoms; I44.0 Atrioventricular block, first degree; E66.01 Morbid (severe) obesity due to excess calories; Z79.899 Other long term (current) drug therapy; Z79.82 Long term (current) use of aspirin; Z79.02 Long term (current) use of antithrombotics/antiplatelets; Z95.1 Presence of aortocoronary bypass graft; Z95.5 Presence of coronary angioplasty implant and graft; Z87.891 Personal history of nicotine dependence; Z68.41 Body mass index [BMI] 40.0-44.9, adult
CPT/HCPCS: 36415; 71045; 78452; 80048; 80061; 80076; 83690; 84484; 85025; 93005; 93017; 96374; 96375; 96376; 99218; 99285; A9500; A4216; G0378; J2405; J2785

== ENCOUNTER → 2021-03-26 07:31 | Outpatient (CLI) | payer MEDICARE, OTHER, SELFPAY ==
[2020-11-25 17:45] VITALS: BMI 40.5
[2021-03-26 08:51] LABS: PSA,Total - Annual Screen 2.35 ng/mL (0.00-4.00)
== END ==
PROVIDERS: PCP Internal Medicine; Referring Provider Urology; Visit Provider Urology
DX: Z12.5 Encounter for screening for malignant neoplasm of prostate (principal)
CPT/HCPCS: 36415; 84153; G0103

== ENCOUNTER → 2021-04-19 16:50 | Outpatient (CLI) | payer MEDICARE, OTHER, SELFPAY ==
[2020-11-25 17:45] VITALS: BMI 40.5
--- NOTE | 2021-04-19 16:56 | MRI_ITS ---
STUDY: MRI LUMBAR SPINE WITH CONTRAST REASON FOR EXAM: Male, 75 years old. DDD, LOW BACK PAIN INTO BILATERAL HIPS TECHNIQUE: Standardized fat and water weighted pulse sequences were obtained in the sagittal and axial following administration of . COMPARISON: 13 March 2013, 05 Mar 2021 FINDINGS: T11-T12: Normal endplates. Normal disc height, hydration and morphology. Normal bilateral facet joints. Normal central canal and bilateral lateral recesses. Normal bilateral intervertebral neural foramina. T12-L1: Normal endplates. Normal disc height, decreased hydration and morphology. Normal bilateral facet joints. Normal central canal and bilateral lateral recesses. Normal bilateral intervertebral neural foramina. The spine is fully aligned without scoliosis. Conus medullaris terminates at L1-L2. Cauda equina is compressed at L4-L5. L1-2: Normal endplates. Normal disc height, decreased hydration and morphology. Normal bilateral facet joints. Normal central canal and bilateral lateral recesses. Normal bilateral intervertebral neural foramina. L2-3: Normal endplates. Normal disc height, hydration and morphology. Normal bilateral facet joints. Normal central canal and bilateral lateral recesses. Normal bilateral intervertebral neural foramina. L3-4: Normal endplates. Normal disc height, decreased hydration and morphology. Normal bilateral facet joints. Normal central canal and bilateral lateral recesses. Normal bilateral intervertebral neural foramina. L4-5: Degenerated inferior L4 endplate with intravertebral herniation and degenerative chronic marrow reaction. Decreased disc height, decreased hydration and degenerative morphology with asymmetric right disc bulge. Facets and ligamentum flavum are severely degenerated and hypertrophic.. Normal bilateral facet joints. Thecal sac is severely compressed. Lateral recesses and foramina are severely stenotic. L5-S1: Normal endplates. Subchondral marrow degeneration chronic stage decreased disc height, decreased hydration and degenerative morphology with disc bulge. Normal bilateral facet joints. Normal central canal and bilateral lateral recesses. Foramina are moderately stenotic. Normal visualized sacral ala. Normal visualized paraspinous soft tissue structures. MRI/Spine Lumbar (Routine) IMPRESSION: 1. Severe spondylotic L4-L5 thecal sac, foraminal and lateral recess stenosis. Neurosurgical consultation advised. Electronically Signed: Latisha Corcoran MD at 21:14 EDT Tel , Service support ,
== END ==
PROVIDERS: PCP Internal Medicine; Referring Provider Anesthesiology Pain Medicine; Visit Provider Anesthesiology Pain Medicine
DX: M51.37 Other intervertebral disc degeneration, lumbosacral region (principal)
CPT/HCPCS: 72148

== ENCOUNTER → 2021-05-01 06:50 | Outpatient (CLI) | payer MEDICARE, OTHER, SELFPAY ==
[2021-04-25 12:58] VITALS: BMI 40.7
[2021-05-01 08:29] LABS: AST(SGOT) 23 U/L (15-37); Alanine Aminotransfer ALT/SGPT 24 U/L (16-61); Albumin, Serum 3.5 g/dL (3.2-5.0); Alkaline Phosphatase 58 U/L (45-117); Bilirubin, Direct 0.15 mg/dL (0.00-0.30); Cholesterol 133 mg/dL (200); Globulin 3.7 g/dL (2.2-4.2); High Density Lipoprotein 43 mg/dL; Protein, Total 7.2 g/dL (6.4-8.2); Triglycerides 135 mg/dL; Very Low Density Lipoprotein 27 mg/dL (5-40)
== END ==
PROVIDERS: PCP Internal Medicine; Referring Provider Internal Medicine Cardiovascular Disease; Visit Provider Internal Medicine Cardiovascular Disease
DX: E78.00 Pure hypercholesterolemia, unspecified (principal)
CPT/HCPCS: 36415; 80061; 80076

== ENCOUNTER 2021-09-03 10:32 | Observation (INO) | payer MEDICARE, OTHER, SELFPAY ==
[2021-08-21 10:22] LABS: Absolute Lymphocyte Count 1.44 X10^3/uL (0.83-4.51); Absolute Neutrophil Count 4.2 X10^3/uL (2.0-7.7); Basophil# 0.03 X10^3/uL; Basophil% 0.5 % (0-1); Eosinophil# 0.15 X10^3/uL; Eosinophils% 2.4 % (0-5); Hematocrit 43.8 % (40-54); Lymphocyte # 1.44 X10^3/ul (0.83-4.51); Lymphocyte % 23.1 % (19-41); Mean Corpuscular Hgb 28.2 pg (27.0-32.0); Mean Corpuscular Volume 88.3 fL (80-94); Mean Platelet Vol. 9.9 fl (6.2-12.0); Monocyte% 6.4 % (0-10); NRBC Flagged by Analyzer 0 % (0-5); Neutrophil % 67.3 % (47-70); Platelet Count 216 K/mm3 (150-450); RBC Distribution Width CV 12.9 % (11.6-14.6); RBC Distribution Width SD 41.6 fl (35.1-43.9); Red Blood Count 4.96 M/mm3 (4.6-6.2); White Blood Count 6.2 K/mm3 (4.4-11.0)
[2021-08-21 11:38] LABS: HIV - WCH Non-Reactive (Nonreactive); Hepatitis B Surface Antibody Non-Reactive; Hepatitis C Antibody Non-Reactive (Nonreactive)
[2021-08-21 11:39] LABS: Anion Gap 9 (5-15); BUN 16 mg/dL (7-18); BUN/Creat Ratio 17.1 RATIO (10-20); Calcium,Total 8.8 mg/dL (8.5-10.1); Chloride 106 mmol/L (98-107); Creatinine, Serum 0.93 mg/dL (0.70-1.30); EST Glomerular Filtration Rate 84 mL/min (>60); Est Glom Filt Rate - Afr Amer 101 mL/min (>60); Glucose 112 mg/dL (74-106); Magnesium 2.1 mg/dL (1.6-2.6); Potassium 4.2 mmol/L (3.5-5.1); Sodium Level 139 mmol/L (136-145)
[2021-08-22 17:10] LABS: Hepatitis A AB, Total Negative (Negative)
--- NOTE | 2021-09-02 15:12 | HP.PCM_ITS ---
History and Physical [id number] [address] [place] [address] [phone] OFFICE VISITDate of Service: 05/20/21 MR#:[id number]:[id number]: LB COREY Jr.Rep #:[id number] Provider:Dr. Mike Hernandez, Age/Sex: 75/M Location:[place]:Signed Intake Vital Signs 05/20/21 08:15 05/20/21 13:09 Height 5 ft 9 in Weight: 277 lb 6 oz BMI 40.7 40.9 Intake Visit Reasons: Lumbar Spine Accompanied by: Self Is patient in pain?: Yes Pain scale (1-10): 9 Allergies No Known Allergies Allergy (Verified 05/20/21 13:07) Medications aspirin 81 mg PO DAILY@0800 01/24/16 [History Confirmed 05/20/21] dutasteride 0.5 mg PO DAILY 01/24/16 [History Confirmed 05/20/21] multivitamin with folic acid 1 tab PO DAILY 01/24/16 [History Confirmed 05/20/21] nitroglycerin 0.4 mg sublingual tablet 0.4 mg SUBLINGUAL Q5M PRN #25 tab 10/28/19 [Rx Confirmed 05/20/21] alfuzosin 10 mg tablet,extended release 24 hr 10 mg PO DAILY 03/29/20 [History Confirmed 05/20/21] clopidogrel 75 mg tablet 75 mg PO DAILY #90 tab 10/30/20 [Rx Confirmed 05/20/21] losartan 100 mg tablet 100 mg PO DAILY #90 tab 10/30/20 [Rx Confirmed 05/20/21] metoprolol tartrate 50 mg tablet 50 mg PO BID #180 tab 10/30/20 [Rx Confirmed 05/20/21] simvastatin 40 mg tablet 40 mg PO QHS #90 tab 10/30/20 [Rx Confirmed 05/20/21] vit C,O-Ol-zrpex-lutein-zeaxan 1 ea PO BID 11/25/20 [History Confirmed 05/20/21] fenofibrate 160 mg tablet 160 mg PO DAILY #90 tab 01/21/21 [Rx Confirmed 05/20/21] PFSH Medical History (Updated 05/20/21 @ 13:[address] Mike Hernandez DO) Atherosclerotic heart disease of [place] coronary artery without angina pectoris Essential (primary) hypertension Hyperlipidemia Ischemic cardiomyopathy Old inferior wall myocardial infarction (02/20/98) Surgical History H/O coronary artery bypass surgery (11/03/01) History of coronary artery stent placement (03/12/16) Family History Father , Age 94; had CABG age 81 CABG CAD (coronary artery disease) Mother , Age 53, Cancer Cancer Social History Smoking Status: Former smoker quit date: 10/12/01 pack-years: 30 HPI Lumbar Spine Details: Parts of this documentation were recorded by a scribe, this documentation accurately reflects the service provided and the decisions made by me, Dr. Mike Hernandez DO 05/20/21 0814. LB COREY is a 75 year old M here today for lumbar spine pain. Patient is here for a referral from Dr. Dsouza. Patient had received X-rays on 03/05/21 and a MRI on 04/19/21. Patient states he had received an injection from Dr. Dsouza around February that had not done much for his pain and they wanted him seen here to go over his MRI and see if another shot will do him any good. Patient States there is no known injury to his back that he knows of this pain has just been on going for years now. Patient states he does have some radiating pain into both legs where most of the pain in behind his knees and down. Patient states he does have some popping in his left hip. Patient states walking and standing for long periods of time is terrible. Patient states that when he is sitting he can hardly tell there is anything wrong with his back. Patient states he used to see a chiropractor a couple years back with some relief of pain for the time being. Patient denies any previous surgeries done to his back. Dr. Dsouza had prescribed Gabapentin and it didn't do much for his pain so he is no longer taking that. Patient has tried the following conservative treatments for six weeks or greater: RICE, OTC NSAIDs, laboratory animal caretaker, bracing patient states that support brace kind of helps with his pain but not as much as he would hope, interventional pain procedures, and spinal manipulation. Patient has found no relief and would like to further investigate their s/s. Lb is a most pleasant gentleman 75 years old who has a chief complaint of some back pain and pain that radiates into both legs. It worsens as he walks. He states that even the trip from the car into the building started bothering his legs significantly. This has been going on for very long time but is gradually worsened. He got an epidural injection from Dr. Felix but unfortunately it was of no help. He has had an MRI scan and plain x-rays taken of his back. When he is walking the pain begins if he sits down he gets significant relief. The cycle repeats itself as he ambulates. He is able to play golf for the simple reason that he can drive up to the ball get out of the car to hit the ball and get back on the cart. On examination he has little pain with flexion or extension of his lumbar spine. He can stand on his toes he can stand on his heels. He has good motor strength of all the major muscle groups of both lower extremities. He has no Achilles reflexes bilaterally and 1+ patellar reflexes bilaterally. He has no muscle atrophy. I reviewed plain x-rays of his back that demonstrated tremendous amount of spondylosis. I also reviewed a recent MRI scan of his lumbar spine that demonstrates that he has severe stenosis at L4-5. I explained to Mr. Corey that if he can live with this as it is that it is okay. At some point if he gets to where he does not want to live with it then we can consider surgical intervention at the L4-5 level to enlarge the size of his canal. He will think over the possibilities I will see him on a as needed basis. Coding Level of Care Code Off vis,new,level 3 Diagnoses Spinal stenosis of lumbar region with radiculopathy M48.061; M54.16 Time Spent (min) 30 Assessment and Plan Assessment and Plan (1) Spinal stenosis of lumbar region with radiculopath
[2021-09-03] VITALS (14 sets, daily range): BP systolic 135–171; BP diastolic 61–78; PULSE 58–81; RESP 16–18; TEMP 35.6–37.1; O2SAT 91–98; BMI 40.4
[2021-09-03] MEDS: Lactated Ringers 1,000 ML 15 ML IV ×3 (05:35→12:38)
[2021-09-03] MEDS: Acetaminophen 500 MG Tablet 1000 MG PO (06:20)
[2021-09-03] MEDS: Cefazolin 2 GM in 0.9% Normal Saline 100 ML IV (07:27)
--- NOTE | 2021-09-03 07:30 | RAD_ITS ---
INDICATION: DECOMPRESSION L4-5 EXAMINATION/TECHNIQUE: X-RAY - XR Spine Lumbar 1 View COMPARISON: Lumbar spine radiograph from 03/05/2021 FINDINGS/ RAD/Spine 1 View Any Level IMPRESSION: Evaluation slightly limited by underpenetration of the study and single lateral view. There is surgical hardware/foreign body overlying the L4 spinous process. There is a surgical clip overlying the L1-L2 facet joint. Multilevel degenerative changes are unchanged from previous studies. Vertebral body heights and alignments are stable. No acute findings. Electronically Signed: Delonte Renteria MD at 15:20 EST Tel , Service support ,
[2021-09-03] MEDS: THROMBIN (RECOMBINANT) 20,000 UNIT VIAL 20000 UNIT TOPICAL (08:45)
[2021-09-03 09:01] LABS: Bedside Glucose 94 mg/dL (70-110)
--- NOTE | 2021-09-03 10:41 | OP.PCM_ITS ---
Report of Operation Date of Procedure: 09/03/21 Description of Surgical Findings:: Preoperative diagnosis: Severe spinal stenosis L4-5 Postoperative diagnosis: The same Procedure: Laminectomy decompression L4-5 CPT code 83491 Surgeon: Dr. Hernandez data analysis assistant: Rupa HICKS Anesthesia: General endotracheal anesthesia administered by [facility] Estimated blood loss: Less than 50 cc Drains: Medium Hemovac Complications: None Procedure: Patient was taken to the OR where he was placed under general endotracheal anesthesia. A Donovan catheter was inserted. Neuro monitoring placed their leads and the patient. The patient was then placed in prone position on the Nixon frame. After appropriate positioning with care to protect his bony prominences his ulnar nerves of both elbows the brachial plexus bilaterally facial features and the genitalia the back was prepped and draped in standard fashion. I made a longitudinal incision centered over the lower back subcutaneous tissues were incised the length of the skin incision. First I elevated the paravertebral muscles off the lamina on the left side. An intraoperative x-ray was taken the marker in place it demonstrated we were at L3-4 we simply moved down 1 level to L4-5 and marked it. I then elevated the paravertebral muscles off of the lamina of L4 and the top of L5. Thorough irrigation was carried out frequently in the course of this case to prevent infection. We then packed the left side we then opened the right side the same fashion elevating peritoneal muscles off the lamina of L4 the top of the lamina of L5 using cautery. Again thorough irrigation was carried out. Then put the super slide retractors in place giving us good access. Excess soft tissue was removed with cautery. We used cautery to identify the lamina of L4 on both sides. Using double-action rongeurs the spinous process of L4 was completely removed. I also used double-action rongeurs to thin down the lamina just on each side of the center and in the middle. I then used curettes to elevate the ligamentum flavum off the underside of the lamina of L4. I then began my laminectomy with 45 degree Kerrison rongeurs opened it straight up northward and then opened both sides the lateral recesses were opened with a 45 degree Kerrison rongeurs. I then began removal of the ligamentum flavum. And then moved to the opposite side of the table which was easier to then open the rest of the left side. I opened the left side lateral recesses in the same fashion. Again thorough irrigation was carried out every 10 minutes in the course of the case. This completely decompressed the cauda equina I used a hockey-stick's to check the foramina they were wide open. Bleeders were controlled with cautery and bone wax was used to go over the bleeding parts of bone. An amniotic membrane was then placed over the dura Gelfoam was placed over the top of that. A Hemovac drain was inserted and closure was begun. I closed the lumbar fascia using figure was 8 suture with #1 Vicryl for closure of subcutaneous tissues in layers first with 0 Vicryl and then 2-0 Vicryl and 2 more layers then skin was approximated using skin clips. Sterile dressings were then applied. The patient was then recovered in the OR and moved to his hospital bed and taken to recovery in satisfactory condition. The end of operative summary on Seth Corey. This is Dr. Hernandez dictating.
--- NOTE | 2021-09-03 12:25 | SUR.PHASEI ---
MONITORED ON etCO2 NASAL CANNULA. PER ERAS PROTOCOL, MEASURING AT 40 AT THIS TIME. WILL CONT TO MONITOR.
[2021-09-03] MEDS: Lactated Ringers 1,000 ML 100 ML IV ×2 (13:34→23:15)
--- NOTE | 2021-09-03 14:42 | PCM.PN.HOSP ---
Subjective Subjective Patient postop really denies any acute pain at this time. He notes sensation is appropriate and denies any focal weakness. Patient has a Donovan catheter drain which is significantly full. Patient notes that when he is discharged he will live with friends. Once he is appropriate he will return to home. He notes he has 3 steps at home. Patient denies fevers, chills, nausea, emesis, abdominal pain, chest pain or dyspnea. Objective Data Objective Data Vital Signs: Vital Signs Temp Pulse Resp BP Pulse Ox 97.8 F 63 18 160/72 H 96 09/03/21 13:38 09/03/21 13:38 09/03/21 13:38 09/03/21 13:38 09/03/21 13:38 Oxygen Flow Rate (L/min) 4 Oxygen Delivery Method Room Air Weight: 273 lb 5.971 oz Body Mass Index (BMI) 40.4 Intake & Output: Intake and Output for Last 24 Hours 09/01/21 09/02/21 09/03/21 23:59 23:59 23:59 Intake Total 2245.75 / 2245.75 Output Total 235 / 235 Balance 2009.75 / 2009.75 Lab / Micro Data Result Diagrams: 08/21/21 09:58 08/21/21 09:58 Labs: Laboratory Results - last 24 hr 09/03/21 06:02: POC Glucose 94 Micro: Microbiology 08/21/21 09:58 Swab (Method) Nasal Screen MRSA/MSSA - Final Physical Exam Narrative Physical Examination: General: Awake, alert, oriented x 3 and cooperative, seated upright in MS bed, no acute distress, pain controlled. Skin: Normal color, normal turgor, no icterus, no cyanosis except for expected incision with dressing, no drainage. HEENT: AT/NC, EOMI, PERRLA, MMM, no carotid bruits or JVD noted; however, thickened neck makes examination difficult. Lungs: Mildly diminished, greater decrease BL bases, no rales, ronchi or wheezing. Heart: Regular rate and rhythm; no gallop, rub audible. Abdomen: Soft, morbidly obese, NTTP, no obvious distention, distant normal BS, no obvious HSM; however, habitus makes examination difficult. Extremities: No cyanosis, no clubbing, mild bilateral ankle not markedly pitting edema. Neurological: Patient awake, alert, oriented as noted, cognitive function intact; pupils equally reactive to light and accommodation, cranial nerves II-XII grossly normal, moving all 4 extremities, no focal deficits, strength moderately global decreased which is expected given recent OR. Psychiatric: Affect appears normal, no acute evidence of depressive or anxiety feelings. Assessment & Plan Assessment/Plan (1) Spinal stenosis of lumbar region with neurogenic claudication: PLAN: The patient is a 75 y/o M w/ PMHx: CAD s/p CABG and PCI, Ischemic cardiomyopathy, HTN, HLD, Former tobacco use, GERD, Chronic back pain w/ severe lumbar spinal stenosis L4-5 who presents to the [facility] as direct admission on 09/03/[address] Hernandez for planned laminectomy decompression L4-5. #1. Chronic back pain w/ severe lumbar spinal stenosis L4-5: Failed conservative therapies and treatments, admitted per Dr. Hernandez for planned laminectomy decompression L4-5, post-operative pain management, bowel regimen, DVT Prophylaxis, PT/OT/CM per Orthopedic surgery discretion. #2. CAD: Status post CABG and PCI, recommend continuation of aspirin and Plavix once cleared by surgery postop, losartan, metoprolol, statin therapy. Stress testing 11/2020 with myocardial perfusion stress test with no evidence for ischemia at that time with preserved EF #3. Ischemic cardiomyopathy: 05/18/2019 stress echo noted with EF 65%, no echocardiogram report available in [facility], as noted resume aspirin, Plavix once cleared by surgery postop, continue losartan, metoprolol, statin therapy #4. Hypertension: Continue home regimen including metoprolol, losartan with hold parameters as needed, PRN hydralazine. #5. Hyperlipidemia: Continue statin and fenofibrate therapy. #6. Morbid Obesity: Weight loss and lifestyle changes encouraged. #7. BPH: We will continue patient home Proscar and Flomax regimen. #8. Former tobacco use: Encourage continued tobacco cessation. #9. GERD: Maintained on famotidine. #10. DVT prophylaxis: Encourage SCDs, chemoprophylaxis once appropriate per surgery given recent operative intervention. Charges/Coding Visit Charges Inpatient E&M: 22617 Subs Hosp L3
[2021-09-03] MEDS: Cefazolin 1 GM/50 ML BAG IV ×2 (15:39→23:16)
[2021-09-03] MEDS: Tamsulosin HCl 0.4 MG Capsule PO (17:52)
[2021-09-03] MEDS: Metoprolol Tartrate 50 MG Tablet PO (21:37)
[2021-09-03] MEDS: Atorvastatin Calcium 20 MG Tablet PO (21:37)
[2021-09-03] MEDS: Famotidine 20 MG Tablet PO (21:37)
[2021-09-03] MEDS: Senna/Docusate Sodium 1 Tablet 2 TABLET PO (21:37)
[2021-09-03] MEDS: oxyCODONE 5 MG Tablet PO (23:17)
[2021-09-04 00:56] VITALS: BP 113/53; PULSE 72; RESP 18; TEMP 37.3; O2SAT 95
[2021-09-04 05:28] VITALS: BP 142/62; PULSE 65; RESP 18; TEMP 37.3; O2SAT 93
--- NOTE | 2021-09-04 07:54 | PN.HOSP_ITS ---
Subjective Subjective Patient history of BPH and has Donovan catheter. Patient complain of irritation in penile urethra due to catheter with mild burning sensation. Donovan catheter removal ordered. Besides that mild back pain expected from surgery. Patient walking in the room. Objective Data Objective Data Vital Signs: Vital Signs Temp Pulse Resp BP Pulse Ox 99.2 F H 65 18 142/62 H 93 09/04/21 05:28 09/04/21 05:28 09/04/21 05:28 09/04/21 05:28 09/04/21 05:28 Oxygen Flow Rate (L/min) 4 Oxygen Delivery Method Room Air Weight: 273 lb 5.971 oz Body Mass Index (BMI) 40.4 Intake & Output: Intake and Output for Last 24 Hours 09/02/21 09/03/21 09/04/21 23:59 23:59 23:59 Intake Total 4264.08 / 4264.08 Output Total 2635 / 3205 1410 / 1410 Balance 1629.08 / 1059.08 -1410 / -1410 Lab / Micro Data Result Diagrams: 08/21/21 09:58 08/21/21 09:58 Labs: Laboratory Results - last 24 hr 09/03/21 06:02: POC Glucose 94 Micro: Microbiology 08/21/21 09:58 Swab (Method) Nasal Screen MRSA/MSSA - Final Radiography Diagnostic Testing: Radiology Impression Spine X-Ray 09/03/21 07:30 IMPRESSION: Evaluation slightly limited by underpenetration of the study and single lateral view. There is surgical hardware/foreign body overlying the L4 spinous process. There is a surgical clip overlying the L1-L2 facet joint. Multilevel degenerative changes are unchanged from previous studies. Vertebral body heights and alignments are stable. No acute findings. Electronically Signed: Delonte Renteria MD at 15:20 EST Tel , Service support , Physical Exam Narrative General: Alert, Oriented x3, Cooperative HEENT: Atraumatic, PERRLA, EOMI, Normocephalic Oral: No Gingival or Mucosal Lesions/ Ulcerations Neck: Supple, No JVD, Negative Carotid Bruits Lungs: Air entry diminished in bilateral lung bases. No crepitation/rhonchi Cardiovascular: Regular rate, Regular Rhythm, Normal S1, Normal S2, No murmurs Abdomen: Bowel Sounds Present, Soft, Non Tender, Non-Distended : Clear urine in the Donovan catheter. No renal angle tenderness. No suprapubic tenderness. Extremities: No edema, Capillary Refill Less than 3 Seconds Skin: No rashes, No breakdown Musculoskeletal/back: Surgical dressing is dry. Hemovac drain present. Sanguinous collection. Mild tenderness over spine Neurological: Cranial nerves II-XII grossly intact, DTR 2+/4 and Symmetrical, Neuro grossly intact Psych/Mental Status: Normal Affect, Appropriate. Assessment & Plan Assessment/Plan (1) Spinal stenosis of lumbar region with neurogenic claudication: PLAN: The patient is a 75 y/o M with history of coronary artery disease status post CABG and PCI, BPH on Flomax and Proscar is being admitted for lumbar spinal stenosis L4-L5. #1. Chronic back pain w/ severe lumbar spinal stenosis L4-5: Patient had L4-5 decompression laminectomy on 09/03. Patient is walking mild expected tenderness. Surgical dressing is dry. Patient is medically stable for discha rge. Donovan catheter removal. #2. CAD: Status post CABG and PCI: Continue aspirin and Plavix, losartan, metoprolol, statin therapy. Stress testing 11/2020 with myocardial perfusion stress test with no evidence for ischemia at that time with preserved EF #3. Ischemic cardiomyopathy: 05/18/2019 stress echo noted with EF 65%, no echocardiogram report available in [facility], as noted resume aspirin, Plavix once cleared by surgery postop, continue losartan, metoprolol, statin therapy #4. Hypertension: Continue home regimen including metoprolol, losartan with hold parameters as needed, PRN hydralazine. #5. Hyperlipidemia: Continue statin and fenofibrate therapy. #6. Morbid Obesity: Weight loss and lifestyle changes encouraged. #7. BPH: continue patient home Proscar and Flomax regimen. #8. Former tobacco use: Encourage continued tobacco cessation. #9. GERD: Maintained on famotidine. #10. DVT prophylaxis: Encourage SCDs, chemoprophylaxis once appropriate per surgery given recent operative intervention. Patient is medically stable for discharge Charges/Coding Visit Charges Inpatient E&M: 44774 Subs Hosp L2
[2021-09-04 08:25] VITALS: O2SAT 90
[2021-09-04 09:12] VITALS: BP 148/62; PULSE 73; RESP 18; TEMP 37.1; O2SAT 93
[2021-09-04 09:31] VITALS: BP 148/62; PULSE 73
[2021-09-04] MEDS: Senna/Docusate Sodium 1 Tablet 2 TABLET PO (09:31)
[2021-09-04] MEDS: Famotidine 20 MG Tablet PO (09:31)
[2021-09-04] MEDS: Fenofibrate 145 MG Tablet PO (09:31)
[2021-09-04] MEDS: Metoprolol Tartrate 50 MG Tablet PO (09:31)
[2021-09-04] MEDS: Losartan Potassium 100 MG Tablet PO (09:31)
[2021-09-04] MEDS: Clopidogrel Bisulfate 75 MG Tablet PO (09:32)
[2021-09-04] MEDS: Finasteride 5 MG Tablet PO (09:32)
[2021-09-04] MEDS: Ensure Surgery 237 ML LIQUID PO (09:33)
--- NOTE | 2021-09-04 10:45 | CASEMGMT ---
RN CM Face to Face with patient for initial transition planning/care coordination assessment. RN CM introduced self and role at [facility]. Patient lying in bed, alert and oriented. Patient willing to participate in assessment and is able to answer all questions appropriately. Care providers, pharmacy, and demographics verified. Patient wishes to discharge home, denies need for home health at this time. Patient states he has no further needs or concerns at this time. CM to follow for discharge planning needs that may arise. PCP: To Specialists: nellie Hernandez; Natalie cardiolgist Preferred Pharmacy: [facility] Insurance: [employer] Prescription Benefit: yes Living Will/HPOA: none LNOK: daughter, ex- Living Arrangements: Patient lives alone but will be staying with ex- in her 2 story home with bed and bath on first floor. Patient states he is independent at home. Transportation: daughter DME/HHC: Patient states he has access to shower chair and walker. Patient denies previous HHC or SNF. Disposition Plan: Patient to discharge to ex-'s house with family support and follow-up plans in place. Ashley FLORES, RN, CM
--- NOTE | 2021-09-04 12:26 | PCM.DC.SUM ---
Providers Date of Admission: 09/03/21 Primary Care Physician: Dr. Margaret Ariza, Consultations 09/03/21 11:48 Consult: Hospitalist Routine Consulting Provider: Debbi Marie Reason for Consult: Medical Management EMERGENT Consult: No MD Notified: Yes Date Notified: 09/03/21 Time Notified: 14:30 Method of Notification: Text Reason For Visit: LUMBAR DECOMPRESSION L4-5 Diagnosis Discharge Diagnosis (1) Spinal stenosis of lumbar region with neurogenic claudication: Status: Acute Code(s): M48.062 - Spinal stenosis, lumbar region with neurogenic claudication Medications at Discharge Home Medications aspirin 81 mg PO DAILY@0800 01/24/16 dutasteride 0.5 mg PO DAILY 01/24/16 nitroglycerin 0.4 mg sublingual tablet 0.4 mg SUBLINGUAL Q5M PRN #25 tab 10/28/19 alfuzosin 10 mg tablet,extended release 24 hr 10 mg PO DAILY 03/29/20 clopidogrel 75 mg tablet 75 mg PO DAILY #90 tab 10/30/20 losartan 100 mg tablet 100 mg PO DAILY #90 tab 10/30/20 metoprolol tartrate 50 mg tablet 50 mg PO BID #180 tab 10/30/20 simvastatin 40 mg tablet 40 mg PO QHS #90 tab 10/30/20 vit C,U-Sa-pfqra-lutein-zeaxan [PreserVision AREDS-2] 1 ea PO BID 11/25/20 fenofibrate 160 mg PO DAILY 08/20/21 hydrocodone 7.5 mg-acetaminophen 325 mg tablet 1 tab PO Q6H PRN 10 Days #40 tab 08/26/21 Hospital Course Summary of Care Provided Hospital Course: This is discharge summary on Seth Corey. This young was admitted yesterday 03 September is being discharged today 04 September. On the day of admission he underwent decompression laminectomy at the L4-5 level. He tolerated the procedure well. Change his dressing today and removed his drain. The incision is dry and healing well. He states that his leg pain is completely gone while ambulating today. He was given post laminectomy protocol regarding his activities. He was told to remove the dressing on Thursday and may shower on Thursday. He already has a appointment to see me for removal of his skin clips. This is the end of discharge summary on Seth Corey. This is Dr. Hernandez dictating. Weight / BMI Weight Weight: 273 lb 5.971 oz Body Mass Index (BMI) 40.4 ABG / Lab / Microbiology Data Result Diagrams: 08/21/21 09:58 08/21/21 09:58 Microbiology: Microbiology 08/21/21 09:58 Swab (Method) Nasal Screen MRSA/MSSA - Final Radiography Diagnostic Testing: Radiology Impression Spine X-Ray 09/03/21 07:30 IMPRESSION: Evaluation slightly limited by underpenetration of the study and single lateral view. There is surgical hardware/foreign body overlying the L4 spinous process. There is a surgical clip overlying the L1-L2 facet joint. Multilevel degenerative changes are unchanged from previous studies. Vertebral body heights and alignments are stable. No acute findings. Electronically Signed: Delonte Renteria MD at 15:20 EST Tel , Service support , Meaningful Use Info Meaningful Use Diagnoses (Choose all that apply): None applicable Discharge Plan Admission Admit Date/Time: 09/03/21 10:32 Attending Provider: Mike Hernandez Primary Care Provider: Margaret Ariza Consulting Providers: Debbi Marie Discharge Orders/Prescriptions Prescriptions: No Action hydrocodone-acetaminophen 7.5-325 mg tablet 1 tab PO Q6H PRN (Reason: pain) 10 Days Qty: 40 RF: 0 aspirin 81 MG tablet,chewable 81 mg PO DAILY@0800 RF: 0 dutasteride 0.5 MG capsule 0.5 mg PO DAILY RF: 0 alfuzosin 10 mg tablet extended release 24 hr 10 mg PO DAILY RF: 0 PreserVision AREDS-2 1 EACH capsule 1 ea PO BID RF: 0 fenofibrate 160 mg tablet 160 mg PO DAILY RF: 0 nitroglycerin 0.4 mg tablet, sublingual 0.4 mg SUBLINGUAL Q5M PRN (Reason: Chest Pain) Qty: 25 RF: 3 metoprolol tartrate 50 mg tablet 50 mg PO BID Qty: 180 RF: 3 simvastatin 40 mg tablet 40 mg PO QHS Qty: 90 RF: 3 losartan 100 mg tablet 100 mg PO DAILY Qty: 90 RF: 3 clopidogrel 75 mg tablet 75 mg PO DAILY Qty: 90 RF: 3 Referrals / Follow Up: To,Margaret, DO [Primary Care Provider] - Disposition Disposition (needs filled in before D/C Order can be placed): Home, Self Care
--- NOTE | 2021-09-04 12:40 | CASEMGMT ---
RICARDO CM in to discuss STONE form with patient. RN CM explained STONE form, patient voiced understanding. Pt signed form and filed in chart. Pt provided with a copy of signed STONE form. Patient had no further questions or concerns at this time.
[2021-09-04] MEDS: 0.9% Saline Lock 10 ML Syringe IV (12:47)
[2021-09-04 14:37] VITALS: BP 139/52; PULSE 74; RESP 18; TEMP 37.2; O2SAT 93
== END 2021-09-04 15:40 | disposition home or self-care (01) ==
LOC: SDC 14:54 → MS3 14:54
PROVIDERS: Admitting Provider Orthopaedic Surgery; PCP Internal Medicine; Referring Provider Orthopaedic Surgery; Visit Provider Orthopaedic Surgery
PROC: (CPT 63030; principal; 2021-09-03 07:00)
DX: M48.062 Spinal stenosis, lumbar region with neurogenic claudication (principal); M54.16 Radiculopathy, lumbar region; I25.10 Atherosclerotic heart disease of native coronary artery without angina pectoris; E78.5 Hyperlipidemia, unspecified; I10 Essential (primary) hypertension; I25.2 Old myocardial infarction; N40.0 Benign prostatic hyperplasia without lower urinary tract symptoms; G89.29 Other chronic pain; I25.5 Ischemic cardiomyopathy; E66.01 Morbid (severe) obesity due to excess calories; K21.9 Gastro-esophageal reflux disease without esophagitis; R23.8 Other skin changes; Z87.891 Personal history of nicotine dependence; Z95.1 Presence of aortocoronary bypass graft; Z79.899 Other long term (current) drug therapy; Z79.82 Long term (current) use of aspirin; Z79.02 Long term (current) use of antithrombotics/antiplatelets; Z68.41 Body mass index [BMI] 40.0-44.9, adult
CPT/HCPCS: 63047; 36415; 72020; 80048; 82962; 83735; 85025; 86703; 86706; 86708; 86803; 87081; 96361; 96365; 96366; 97162; 99218; J7120; A4216; G0378; J2405

== ENCOUNTER 2021-12-24 15:30 | Outpatient (RCR) | payer MEDICARE, OTHER, SELFPAY ==
--- NOTE | 2021-12-04 15:52 | HP.PTEVAL ---
Patient's Visit Information LB SALCEDO Jr. is a 76 year old M referred to Physical Therapy by Dr. Margaret Ariza DO with a diagnosis of Generalized weakness. Date of Evaluation: 12/04/21 Physical Therapist: Basilio Lynne, MERYLT, OCS, CSCS - Visit Plan Frequency: 2-3x /Week Duration: 2-4 Weeks Plan: 2-3x/week fro 2-4 weeks for. 1. work on pelvic ROM including post pelvic tilt and neutral pelvic position strengthening(focus should be netural spine especially in standing once conquered this in supine.). 2. rollout and stretch post HS adn gastroc B LE. 3. Strenthen exercises for LE and core(isometric) to HEP - Subjective Back of lower legs hurts in calves and HS B. They have been hurting for a month or more. Had back surgery in August by Dr. Hernandez who does not want us to work on his back. He describes cleaning out. pain is there 90% of time, more comfortable sitting. Gets worse with standing and walking. Was walking further prior to surgery. Sleep is OK for the most part. no numbness or tingling in legs, no bowel or bladder problems. Wants to golf in the spring but this is 10x worse than last fall. Basic ADLs, they are getting done but painful on feet alot. not employed. No regular exercises for back or otherwise. Spends day in [facility]. Doctor wants him walking for back but limited to 10 minutes due to leg pain. - Pain B LE Pain Intensity (Out of 10): 1 Pain Intensity Range: 0, 9 - Objective Walks hunched over and tilted Fw, gets pain after about 3 minutes walking in posterior lower legs. Walks I. Feels better sitting. I transfers but painful to sit and lie from back, educated to go from sidelying which is much easier for patient. L/S AROM is max limited in extension and this produces his lower leg pain immediately, flexion is min limited and tight feeling. SB are min limited and no pain. Pitting edema B LE that pt says heart doctor is aware of. HS and gastroc are max tight at -45 90/90 test adn 0 AROM DF B. reflexes 2/3 B patella and achilles. Sensation LE WNL to gross light touch. Strength 4-/5 in ankles and knees, hip abd and ext 3+ and flexion 4-. - Balance/Special Test Scores Functional Gait Assessment Score: 24 % Disability: 20.0000 Lower Extremity Functional Score: 30 - Goals Goal 1:: Pt I in appropriate hep to minimize future problems Goal Time Frame: 2-4 Weeks Goal 2:: Patient able to walk 5-10 minutes in PT and community without having to sit due to LE pain Goal Time Frame: 2-4 Weeks Goal 3:: Pt feel 75% better in overall condition with pain 2/10 at worst and manageable Goal Time Frame: 2-4 Weeks Goal 4:: LEFS 50 Goal Time Frame: 2-4 Weeks - Rehabilitation Potential Physical Therapy Diagnosis: Weakness and LE pain effecting function Rehabilitation Potential: Fair - Anticipated Interventions Patient/Client Instruction: Educate patient on: Condition, Plan of Care For the Purpose of:: To decrease pain, To increase ROM, To improve muscle performance and motor function, To improve ability of physical actions for home/community/work/leisure Therapeutic Exercise to Include: Strength training, Coordination, Postural training, Flexibilty training, Gait and locomotor training, Passive ROM, Active ROM For the Purpose of:: To decrease pain, To increase ROM, To improve muscle performance and motor function, To increase tolerance to activity/condition/position, To improve ability of physical actions for home/community/work/leisure, To improve gait and locomotor functions Manual Therapy Techniques to Include: Soft tissue mobilization For the Purpose of:: To improve nutrient delivery to tissue Thank you for the opportunity to evaluate your patient. For Medicare and Medicare HMO plans, please review the plan of care and approve it. It will need to be FAXED BACK to us at [phone] for Medicare purposes. For Medicare only, by signing this I certify the plan of care. Please let me know if there are questions or concerns regarding this plan of care. Physician Signature: Date:
--- NOTE | 2021-12-30 16:07 | HP.PT.NRP ---
LB PABON DENISSE Carrasco was seen in my office for initial evaluation on 12/04/21. The following Plan of Care was established for this patient: Initial Frequency: 2-3x /Week Initial Duration: 2-4 Weeks Patient/Client Instruction: Educate patient on: Condition, Plan of Care For the Purpose of:: To decrease pain, To increase ROM, To improve muscle performance and motor function, To improve ability of physical actions for home/community/work/leisure Therapeutic Exercise to Include: Strength training, Coordination, Postural training, Flexibilty training, Gait and locomotor training, Passive ROM, Active ROM For the Purpose of:: To decrease pain, To increase ROM, To improve muscle performance and motor function, To increase tolerance to activity/condition/position, To improve ability of physical actions for home/community/work/leisure, To improve gait and locomotor functions Manual Therapy Techniques to Include: Soft tissue mobilization For the Purpose of:: To improve nutrient delivery to tissue This patient was last seen in our office 12/24/21. Pertinent comments regarding their Physical therapy will appear below: Pt seen 6 visits but has called to cancel the rest of his visits stating that he wants his hip looked at and thinks it needs replaced and did not wish to return for strengthening despite my recommendations. I will discontinue him at his request. At this point I will be discontinuing this patient from physical therapy. I would be happy to see this patient again in the future if found appropriate by the physician. Thank you! Basilio Lynne, DPT, OCS, CSCS Balance/Gait/Functional tests - Balance/Special Test Scores Functional Gait Assessment Score: 24 % Disability: 20.0000 Lower Extremity Functional Score: 30
== END 2021-12-24 19:00 | disposition home or self-care (01) ==
LOC: PT 15:30
PROVIDERS: PCP Internal Medicine; Referring Provider Internal Medicine; Visit Provider Internal Medicine
DX: R29.898 Other symptoms and signs involving the musculoskeletal system (principal)
CPT/HCPCS: 97110; 97162; 97530

== ENCOUNTER 2022-01-29 07:36 | Outpatient (CLI) | payer MEDICARE, OTHER, SELFPAY ==
[2022-01-29 08:34] LABS: Anion Gap 7 (5-15); BUN 17 mg/dL (7-18); Calcium,Total 8.7 mg/dL (8.5-10.1); Chloride 105 mmol/L (98-107); EST Glomerular Filtration Rate 77 mL/min (>60); Est Glom Filt Rate - Afr Amer 93 mL/min (>60); Glucose 137 mg/dL (74-106); Sodium Level 139 mmol/L (136-145)
[2022-01-29 08:36] LABS: AST(SGOT) 21 U/L (15-37); Alanine Aminotransfer ALT/SGPT 16 U/L (16-61); Albumin, Serum 3.4 g/dL (3.2-5.0); Alkaline Phosphatase 61 U/L (45-117); Bilirubin, Direct 0.16 mg/dL (0.00-0.30); Cholesterol 136 mg/dL (200); High Density Lipoprotein 47 mg/dL; Protein, Total 7.4 g/dL (6.4-8.2); Triglycerides 120 mg/dL; Very Low Density Lipoprotein 24 mg/dL (5-40)
== END 2022-01-29 23:59 | disposition home or self-care (01) ==
PROVIDERS: Internal Medicine Cardiovascular Disease; PCP Internal Medicine; Referring Provider Physician Assistant Medical; Visit Provider Physician Assistant Medical
DX: M79.10 Myalgia, unspecified site (principal); R25.2 Cramp and spasm; E78.00 Pure hypercholesterolemia, unspecified
CPT/HCPCS: 36415; 80048; 80061; 80076

== ENCOUNTER → 2022-03-18 | Outpatient (CLI) | payer MEDICARE, OTHER, SELFPAY ==
--- NOTE | 2022-03-18 16:50 | MRI_ITS ---
EXAM: MR LUMBAR SPINE WITHOUT AND WITH INTRAVENOUS CONTRAST CLINICAL INDICATION: pain, BILAT HIP/ LEG PAIN; HX PRIOR SURGERY TECHNIQUE: Multiplanar and multisequence MR images of the lumbar spine without and with intravenous contrast. This report was created using [employer] report [employer] technology. CONTRAST: 26ML IV DOTAREM COMPARISON: 04.19.21 FINDINGS: VERTEBRAE: See below. SPINAL CORD: Unremarkable. Normal position and signal intensity of the conus medullaris. SOFT TISSUES: Unremarkable. DISCS/SPINAL CANAL/NEURAL FORAMINA: L1-L2: L1-2: Loss of intervertebral disc height. There is endplate spondylosis of the vertebral body. Normal central canal and intervertebral neuroforamina. There is bilateral facet arthropathy. L2-L3: L2-3: Loss of intervertebral disc height. There is endplate spondylosis of the vertebral body. Normal central canal and intervertebral neuroforamina. There is bilateral facet arthropathy. L3-L4: L3-4: Loss of intervertebral disc height. There is endplate spondylosis of the vertebral body. Normal central canal and intervertebral neuroforamina. There is bilateral facet arthropathy. There is bilateral ligamentum flavum thickening. L4-L5: L4-5: Loss of intervertebral disc height. There is endplate spondylosis of the vertebral body. Disc desiccation. Discogenic endplate changes. Bilateral neural foraminal stenosis. Compression of exiting bilateral L4 nerve root. There is bilateral facet arthropathy. Disc herniation. Severe spinal stenosis. There is bilateral ligamentum flavum thickening. Narrowing of the lateral recess. L5-S1: Loss of intervertebral disc height. There is endplate spondylosis of the vertebral body. Left neural foraminal stenosis. Disc herniation. There is bilateral ligamentum flavum thickening. . There is bilateral facet arthropathy. Normal spinal canal and lateral recesses. MRI/Spine Lumbar W/WO Contrast IMPRESSION: 1. L4-5: Post contrast, There is either a recurrent extruded right paracentral disc herniation or residual fragment on the right. Se 7 IM: 7. Bilateral neural foraminal stenosis. Compression of exiting bilateral L4 nerve root. There is bilateral facet arthropathy. Disc herniation. Severe spinal stenosis. There is bilateral ligamentum flavum thickening. Narrowing of the lateral recess. 2. Loss of intervertebral disc height. There is endplate spondylosis of the vertebral body. Left neural foraminal stenosis. Disc herniation. There is bilateral ligamentum flavum thickening. . There is bilateral facet arthropathy. 3. Multilevel degenerative changes, as described above. Electronically Signed: Calixto Fraire MD at 19:31 EDT ,
[2022-03-18 17:51] LABS: CREATININE FINGERSTICK < 0.9 mg/dL (0.70-1.30); EGFR FINGERSTICK > 60.0000 mL/min (>60)
== END | disposition home or self-care (01) ==
LOC: MRI 16:49
PROVIDERS: PCP Internal Medicine; Referring Provider Orthopaedic Surgery; Visit Provider Orthopaedic Surgery
DX: M54.16 Radiculopathy, lumbar region (principal); M48.061 Spinal stenosis, lumbar region without neurogenic claudication
CPT/HCPCS: 72158; A9575

== ENCOUNTER → 2022-05-14 | Outpatient (CLI) | payer MEDICARE, OTHER, SELFPAY ==
--- NOTE | 2022-05-14 13:48 | ECHOD_ITS ---
Reason For Study: HTN Procedure This was a 2D Doppler, Color Flow transthoracic echocardiogram. Exam performed in department. Left Ventricle Normal LV size. Left ventricular systolic function is normal. The estimated ejection fraction is 60 %. Stage 1 diastolic dysfunction. No regional wall motion abnormalities noted. Right Ventricle Normal RV size. Normal systolic function. Atria Normal left atrium. Normal right atrium. Mitral Valve Normal mitral valve. Tricuspid Valve Normal tricuspid valve. Aortic Valve The aortic valve is not well visualized. Pulmonic Valve The pulmonic valve is not well visualized. Great Vessels Normal aortic root. The pulmonary artery is normal size. Normal inferior vena cava. Pericardium/Pleural No pericardial effusion. MMode/2D Measurements & Calculations LVAd ap4: 24.5 cm2 SV(MOD-sp4): 39.5 ml SV(sp4-el): 40.5 ml LVLd ap4: 8.7 cm EDV(MOD-sp4): 59.2 ml EDV(sp4-el): 58.5 ml LVAs ap4: 12.4 cm2 LVLs ap4: 7.2 cm ESV(MOD-sp4): 19.7 ml ESV(sp4-el): 18.1 ml EF(MOD-sp4): 66.7 % EF(sp4-el): 69.1 % LA A4 area: 15.7 cm2 RA A4 area: 13.4 cm2 Time Measurements MV dec time: 0.29 sec Doppler Measurements & Calculations MV E max carson: 76.8 cm/sec Lat Peak E' Carson: 10.6 cm/sec Med Peak E' Carson: 4.7 cm/sec MV A max carson: 104.4 cm/sec E/E' lat: 7.2 E/E' med: 16.2 MV E/A: 0.74 MV V2 max: 111.1 cm/sec Ao V2 max: 125.5 cm/sec MV max P.9 mmHg MV dec slope: 268.0 cm/sec2 Ao max P.3 mmHg MV V2 mean: 53.4 cm/sec Ao V2 mean: 87.6 cm/sec MV mean P.5 mmHg Ao mean P.5 mmHg MV V2 VTI: 35.8 cm Ao V2 VTI: 27.4 cm LV V1 max: 78.7 cm/sec PA V2 max: 46.0 cm/sec LV V1 max P.5 mmHg PA V2 mean: 28.2 cm/sec LV V1 mean P.3 mmHg LV V1 mean: 51.2 cm/sec LV V1 VTI: 20.5 cm ECHO/Echo Complete Interpretation Summary Normal LV size. Left ventricular systolic function is normal. The estimated ejection fraction is 60 %. Stage 1 diastolic dysfunction. Ordering Physician: Panchito Estrada Referring Physician: Panchito Estrada Performed By: Deepa Perry RCS
== END | disposition home or self-care (01) ==
PROVIDERS: PCP Internal Medicine; Referring Provider Internal Medicine Cardiovascular Disease; Visit Provider Internal Medicine Cardiovascular Disease
DX: I10 Essential (primary) hypertension (principal); I25.2 Old myocardial infarction
CPT/HCPCS: 93306

== ENCOUNTER 2022-05-23 14:30 | Outpatient (RCR) | payer MEDICARE, OTHER, SELFPAY ==
--- NOTE | 2022-03-31 16:33 | HP.PTEVAL ---
Patient's Visit Information LB SALCEDO Jr. is a 76 year old M referred to Physical Therapy by Dr. Mike Hernandez DO with a diagnosis of PIRIFORMIS SYNDROME. Date of Evaluation: 03/31/22 Physical Therapist: Radha Gregory PT, Cert MDT - Visit Plan Frequency: 2-3x /Week Duration: 4-6 Weeks Plan: POSTURE CORRECTION/STRENGTHENING, INSTRUCTION IN APPROPRIATE BODY MECHANICS AND ACTIVITY MODIFICATIONS. PIRIFORMIS STRETCHING WITH NEUTRAL SPINE. ALL EX'S WITH NEUTRAL SPINE. SUNNI LE ROM, STRETCHING AND STRENGTHENING. HEP INSTRUCTION. FOCUS ON WRITTEN HEP. - Subjective Work/Leisure: RETIRED. Present symptoms: RIGHT BUTTOCK PAIN > LEFT. INTERMITTENT LBP. SUNNI LE PAIN, NUMBESS AND TINGLING RIGHT > LEFT ALL THE WAY TOO FEET. Present since: NOV 2021. Pain Scale: WORST 9/10, LEAST 2/10. Currently: 2/10. Commenced as a result of: NO APPARENT REASON. Symptoms at onset: SUNNI LE PAIN AND CRAMPING (NOV 2021). Worse: MAINLY WALKING. ALSO STANDING. Better: WHEN I CAN FIND A COMFORTABLE WAY TO SIT. Disturbed sleep: YES. Previous history/Previous treatment: SEP 03 2021 - L45 CLEAN OUT BY DR. HERNANDEZ. Treatment this episode: PHYSICAL THERAPY FOR 3 WEEKS IN DECEMBER 2021 BUT DIDN'T HELP. PT STARTED TO IRRITATE LEFT HIP. Coughing/sneezing/straining: POSITIVE SOMETIMES ON SUNNI BUTTOCK PAIN. Gait: HAS BEEN USING A CANE SINCE JANUARY. THE CANE HELPS HIS PAIN WHILE WALKING BUT PAINFUL ESPECIALLY IN LEGS TO WALK. TIME AND DISTANCE LIMITED. Difficulty initiating urination: NO. Bowel or Bladder Dysfunction: NO. Accidents: A LONG TIME AGO - HURT LEFT HIP - RECOVED. Unexplained weight loss: NO. Imaging: RECENT LEFT HIP X-RAYS THAT PATIENT REPORTS SHOWED MILD ARTHRITIS. RECENT LUMBAR MRI: SEE [facility] EMR -. MRI/Spine Lumbar W/WO Contrast. IMPRESSION: . 1. L4-5: Post contrast, There is either a recurrent extruded right. paracentral disc herniation or residual fragment on the right. Se 7 IM: 7. Bilateral neural foraminal stenosis. Compression of exiting bilateral L4. nerve root. There is bilateral facet arthropathy. Disc herniation. Severe. spinal stenosis. There is bilateral ligamentum flavum thickening. Narrowing of the lateral recess. . 2. Loss of intervertebral disc height. There is endplate spondylosis of. the vertebral body. Left neural foraminal stenosis. Disc herniation. There is bilateral ligamentum flavum thickening. . There is bilateral. facet arthropathy. . 3. Multilevel degenerative changes, as described above. . Electronically Signed: Calixto Fraire MD. at 19:31 EDT. Reading Location ID and State: [facility] / [place]. , Service support , . PMH/Recent major surgery: DOUBLE BY PASS 2000 AND 7 HEART STENTS WITH MOST RECENT BEING ABOUT 2 YEARS AGO. HTN, HIGH CHOLESTROL, PROSTATE MEDICINE. NO CANCER. NO CVA. NOT DIABETIC. - Objective Sitting/Standing Posture: POOR. INCREASED TRUNK FLEXION. FH. RS'S. RIGHT LATERAL SHIFT BUT NT FOR RELEVENCE DUE TO PATIENT REPORTING DR. HERNANDEZ DOES NOT WANT US TO WORK ON HIS BACK. Active Correction of posture: WORSE. Other Observations: INDEP SLOW ANTALGIC GAIT INTO PT WITH STRAIGHT CANE THAT IS SET TOO LOW AND NO LOB. PATIENT WALKS WITH VERY SHORT SUNNI STRIDE LENGTH AND ON BENT KNEES. PATIENT C/O INCREASED PAIN WHEN HE TRIES TO CORRECT POSTURE. THIS PT ADJUSTED CANE FOR BETTER FIT. ONE UE ASSIST REQUIRED FOR SIT TO STAND TRANSFER. Sensory deficit: SUNNI LE LIGHT TOUCH SENSATION GROSSLY INTACT AND SYMMETRICAL. ROM deficit: TIGHT SUNNI LE HIP ROTATORS, HIP FLEXORS, HS'S AND GASTROC SOLEUS COMPLEX'S. Motor deficit: SUNNI LE'S 5/5 WITH MMT'ING EXCEPT HIPS GROSSLY 4/5 AND PAIN LIMITED. KNEES AND ANKLES ARE STRONG WITH TESTING IN SITTING AND TESTING OF HIPS AND KNEES DOES NOT PROVOKE C/O INCREASED PAIN. Dural Signs: NEGATIVE SUNNI LE'S. Lumbar mvmt loss: NT DUE TO PATIENT REPORTING DR. HERNANDEZ DOES NOT WANT US TO WORK ON HIS BACK. Core strength: POOR. Palpation: NO ACUTE TENDERNESS IN PIRIFORMIS OR GREATER TROCH REGIONS SUNNI. - Balance/Special Test Scores Oswestry Low Back Score: 28 TUG Test Time Seconds: 15.74 30 Second Chair Rise Test Seconds: 6 - Goals Goal 1:: DECREASE C/O SUNNI LE PAIN Goal Time Frame: 4-6 Weeks Goal 2:: IMPROVE STANDING AND WALKING FUNCTION Goal Time Frame: 4-6 Weeks Goal 3:: INSTRUCT IN PROPHYLAXIS Goal Time Frame: 4-6 Weeks - Anticipated Interventions Patient/Client Instruction: Educate patient on: Condition, Plan of Care, Risk Factors For the Purpose of:: To improve self management Therapeutic Exercise to Include: Strength training, Body mechanics, Postural training, Flexibilty training, Neuromotor development, In an aquatic setting, Dynamic Lumbar Stabilization For the Purpose of:: To decrease pain, To increase ROM, To improve muscle performance and motor function, To increase tolerance to activity/condition/position, To improve ability of physical actions for home/community/work/leisure Cryotherapy (ice pack, ice massage): Yes Thermo therapy (hot pack): Yes Ultrasound (thermal/non thermal): Yes For the Purpose of:: To decrease pain, To improve nutrient delivery to tissue Thank you for the opportunity to evaluate your patient. For Medicare and Medicare HMO plans, please review the plan of care and approve it. It will need to be FAXED BACK to us at [phone] for Medicare purposes. For Medicare only, by signing this I certify the plan of care. Please let me know if there are questions or concerns regarding this plan of care. Physician Signature: Date:
--- NOTE | 2022-04-28 16:25 | HP.PTREVAL ---
Dr. Mike Hernandez, DO, It has been my pleasure to treat LB SALCEDO Jr. over the last 8 visits for PIRIFORMIS SYNDROME. Please see the progress note below for an update on the physical therapy plan of care! Subjective: PATIENT REPORTS HE IS GETTING BETTER AND THERPAY IS HELPING. REPORTS HE HAS EVEN GONE A COUPLE DAYS WITHOUT HIS CANE. REPORTS HE EVEN PUSHED MOWED HIS YARD A COUPLE TIMES. IT TOOK ABOUT 45 MINUTES WITH A COUPLE BREAKS. STILL GETTING A LOT OF PAIN AT TIMES. 8/10 R BUTTOCK PAIN RISING FROM SITTING THIS MORNING. I HATE TO SAY IT BUT I THINK I'M FINDING OUT IT MIGHT BE MY CHAIR. PATIENT REPORTS HE IS STILL HAVING HAMSTRING PAIN AND PULLING THAT HE HAS HAD SINCE AFTER SURGERY. PATIENT REPORTS ROCKING BACK AND FORTH ON HIS SIT BONES ON A FIRM CHAIR RELIEVES HIS LEG PAIN BUT NOT IN RECLINER. PATIENT REPORTS HE WANTS TO CONTINUE PT BECAUSE IT IS HELPING BUT HE ISN'T ALL BETTER AND CAN'T GOLF YET. PATIENT REPORTS SOME DAYS HE FEELS REALLY GREAT BUT OTHER DAYS HE DOESN'T. PATIENT REPORTS HE DOESN'T WANT TO CONSIDER INJECTIONS YET. Objective/Function: PATIENT WAS SEEN TODAY FOR RE-ASSESSMENT OF PROGRESS TOWARD THE SET PT GOALS AND THE NEED FOR FURTHER PHYSICAL THERAPY VS READINESS FOR DISCHARGE. UPON EXAM TODAY HE IS MAKING GOOD PROGRESS TOWARD ALL PT GOALS AND IS APPROPRIATE TO CONTINUE PT BASED ON PROGRESS MADE AND ROOM FOR FURTHER IMPROVEMENT. HIS STRIDE LENGTH IS IMPROVING WITH GAIT AND HE IS BECOMING LESS DEPENDENT ON HIS CANE. SUNNI LE FLEXABILITY IS IMPROVING AND SUNNI LE STRENGTH IS 5/5 WITH TESTING TODAY. PATIENT DENIES PAIN WITH LE TESTING. Plan Plan: CONTINUE PT 2X'S A WK X 2 WKS. PATIENT IS AGREEABLE WITH CURRENT POC AND WANTS TO CONTINUE: POSTURE CORRECTION/STRENGTHENING, INSTRUCTION IN APPROPRIATE BODY MECHANICS AND ACTIVITY MODIFICATIONS. PIRIFORMIS STRETCHING WITH NEUTRAL SPINE. ALL EX'S WITH NEUTRAL SPINE. SUNNI LE ROM, STRETCHING AND STRENGTHENING. HEP INSTRUCTION. FOCUS ON WRITTEN HEP. Balance/Gait/Functional tests - Balance/Special Test Scores Oswestry Low Back Score: 22 TUG Test Time Seconds: 15.74 Tug Test: <20 sec.=mostly independent 30 Second Chair Rise Test Seconds: 6 Goals Goal 1:: DECREASE C/O SUNNI LE PAIN Goal Time Frame: 4-6 Weeks Goal Progress: Progressing Goal 2:: IMPROVE STANDING AND WALKING FUNCTION Goal Time Frame: 4-6 Weeks Goal Progress: Progressing Goal 3:: INSTRUCT IN PROPHYLAXIS Goal Time Frame: 4-6 Weeks Goal Progress: Progressing Anticipated Interventions Patient/Client Instruction: Educate patient on: Condition, Plan of Care, Risk Factors For the Purpose of:: To improve self management Therapeutic Exercise to Include: Strength training, Body mechanics, Postural training, Flexibilty training, Neuromotor development, In an aquatic setting, Dynamic Lumbar Stabilization For the Purpose of:: To decrease pain, To increase ROM, To improve muscle performance and motor function, To increase tolerance to activity/condition/position, To improve ability of physical actions for home/community/work/leisure Cryotherapy (ice pack, ice massage): Yes Thermo therapy (hot pack): Yes Ultrasound (thermal/non thermal): Yes For the Purpose of:: To decrease pain, To improve nutrient delivery to tissue Please do not hesitate to contact me at [phone] by phone or if you have questions or concerns regarding this new plan of care! Sincerely, Radha Gregory, PT, Cert MDT
--- NOTE | 2022-05-23 15:01 | HP.PTDCSUM ---
It has been my pleasure to treat LB SALCEDO Jr. referred by Dr. Mike Hernandez DO, with the diagnosis of PIRIFORMIS SYNDROME for a total of 14 visit(s). Discharge Date: 05/23/22 Please see the following information for a summary of their discharge status. Subjective: PATIENT REPORTS HE HAS GOOD DAYS AND BAD DAYS. ABLE TO MOW AND WEED EAT YESTERDAY. REPORTS THERPAY HAS HELPED AND FEELS READY FOR DISCHARGE. PATIENT CONTINUES TO REPORT IMPROVEMENT IN HIS FLEXABILITY, PAIN AND STRENGTH. PAIN RANGES 0-3/10 NOW. PATIENT REPORTS HE DOESN'T FEEL LIKE HE NEEDS SHOTS NOW BUT WILL CONTACT HIS PCP IF THINGS CHANGE. GOING GOLFING THURSDAY. HIT A BUCKET OF BALLS AND DENIES INCREASED PAIN. R piriformis Pain Intensity (Out of 10): 0 SUNNI HAMSTRINGS Pain Intensity (Out of 10): 0 % Improvement: 75 Objective/Function: PATIENT WAS SEEN TODAY FOR RE-ASSESSMENT OF PROGRESS TOWARD THE SET PT GOALS AND THE NEED FOR FURTHER PHYSICAL THERAPY VS READINESS FOR DISCHARGE. ALL PT GOALS HAVE BEEN MET AND PATIENT IS APPROPRIATE FOR AND AGREEABLE TO DISCHARGE. HIS SUBJECTIVE PAIN REPORTS, OSWESTRY SCORE, TUG TIME AND STS SCORES (SEE BELOW) HAVE GREATLY IMPROVED AND HE IS INDEP WITH A HEP. Goal 1:: DECREASE C/O SUNNI LE PAIN Goal Progress: Goal Met Goal 2:: IMPROVE STANDING AND WALKING FUNCTION Goal Progress: Goal Met Goal 3:: INSTRUCT IN PROPHYLAXIS Goal Progress: Goal Met Plan: D/C TO INDEP EX. PATIENT IS AGREEABLE. If there are questions or concerns regarding this patient's physical therapy, please feel free to call me at [phone]. Thank you for the referral of this patient. Sincerely, Radha Gregory, PT, Cert MDT Balance/Gait/Functional tests - Balance/Special Test Scores Oswestry Low Back Score: 6 TUG Test Time Seconds: 10.74 Tug Test: <20 sec.=mostly independent 30 Second Chair Rise Test Seconds: 11
== END 2022-05-23 19:00 | disposition home or self-care (01) ==
LOC: PT 14:30
PROVIDERS: PCP Internal Medicine; Referring Provider Orthopaedic Surgery; Visit Provider Orthopaedic Surgery
DX: G57.00 Lesion of sciatic nerve, unspecified lower limb (principal)
CPT/HCPCS: 97110; 97162; 97164

== ENCOUNTER → 2022-11-06 | Outpatient (CLI) | payer MEDICARE, OTHER, SELFPAY ==
[2022-11-06 08:32] LABS: AST(SGOT) 17 U/L (15-37); Alanine Aminotransfer ALT/SGPT 16 U/L (16-61); Albumin, Serum 3.6 g/dL (3.2-5.0); Alkaline Phosphatase 47 U/L (45-117); Bilirubin, Direct 0.15 mg/dL (0.00-0.30); Cholesterol 136 mg/dL (200); Globulin 3.8 g/dL (2.2-4.2); High Density Lipoprotein 49 mg/dL; Protein, Total 7.4 g/dL (6.4-8.2); Triglycerides 110 mg/dL; Very Low Density Lipoprotein 22 mg/dL (5-40)
== END | disposition home or self-care (01) ==
LOC: LAB 07:27
PROVIDERS: PCP Internal Medicine; Referring Provider Physician Assistant Medical; Visit Provider Physician Assistant Medical
DX: E78.00 Pure hypercholesterolemia, unspecified (principal)
CPT/HCPCS: 36415; 80061; 80076

== ENCOUNTER 2023-11-24 14:43 | Emergency (ER) | payer MEDICARE, OTHER, SELFPAY ==
[2023-11-24 14:45] VITALS: BP 154/69; PULSE 94; RESP 18; TEMP 35.8; O2SAT 95; BMI 39.2
--- NOTE | 2023-11-24 15:59 | US_ITS ---
INDICATION: - RT Lower scrotal swelling, question abscess EXAMINATION: Ultrasound US Scrotum (Contents) TECHNIQUE: Realtime ultrasound of the testicles was performed with grayscale, Color Doppler and spectral Doppler analysis. COMPARISON: No relevant prior comparison study available FINDINGS: RIGHT: TESTIS: The right testicle measures 4.3 x 3.3 x 2.6 cm. Normal in size and echotexture, without focal lesion. COLOR DOPPLER: Normal arterial flow present in the testicle with monophasic waveforms. EPIDIDYMIS: The right epididymis is enlarged measuring 3.7 x 3.2 x 2.1 cm. There is a large epididymal cyst measuring about 3.2 cm. HYDROCELE: There is large right hydrocele. VARICOCELE: None. LEFT: TESTIS: The left testicle measures 3.5 x 3.1 x 2.1 cm. Normal in size and echotexture, without focal lesion. COLOR DOPPLER: Normal arterial flow present in the testicle with monophasic waveforms. EPIDIDYMIS: The left epididymis measures 1.2 x 0.8 x 0.6 cm. [There is a small left epididymal cyst measuring about 6 mm with internal echoes/debris. HYDROCELE: There is moderate left hydrocele with echogenic shadows/scrotal pearls. VARICOCELE: None. Diffuse thickening of the lateral scrotal wall with irregular border. No drainable abscess is seen. US/Testicular with Arterial Flow IMPRESSION: 1. No evidence of testicular torsion at the time this examination was performed. 2. Bilateral hydrocele larger on the right side. 3. Large right epididymal cyst. 4. Thickening of the right scrotal wall with increased flow without evidence of drainable abscess. Electronically Signed: Ady Draper MD at 19:25 EST ,
--- NOTE | 2023-11-24 15:59 | CT_ITS ---
STUDY: CT ABDOMEN AND PELVIS WITH CONTRAST - URINARY TRACT REASON FOR EXAM: Male, 78 years old. Incontinence RADIATION DOSAGE (If Supplied By Facility): CTDIvol = ( 15.15 ) mGy, DLP = ( 1355.23 ) mGycm TECHNIQUE: IV 100mL Isovue-370 was administered. Transaxial images were obtained from the dome of the diaphragm to the symphysis pubis in the arterial, nephrographic and excretory phases. Multiplanar coronal and sagittal images were reformatted. Individualized Dose Optimization Techniques Were Used For This CT. COMPARISON: Not available FINDINGS: The visualized lung bases are unremarkable. The visualized portions of the heart are within normal limits. Normal liver. Normal gallbladder and extrahepatic biliary system. Normal spleen. Normal pancreas. Normal bilateral adrenal glands. Normal visualized stomach. Normal small intestine. There is mild sigmoid diverticulosis without evidence for acute diverticulitis. Remainder of the visualized colon appears unremarkable. The appendix is visualized and appears normal. Normal abdominal aorta. No retroperitoneal adenopathy. Normal right kidney. Normal left kidney. Normal urinary bladder. Prostate is enlarged impinging the posterior wall of the urinary bladder. Normal abdominal wall. Normal osseous structures. CT/Abdomen/Pelvis W IV Cont ONLY IMPRESSION: Prominent prostate impinging the posterior wall of the urinary bladder. Clinical correlation recommended. Sigmoid diverticulosis. Otherwise unremarkable CT of the abdomen and pelvis. Electronically Signed: Thang Cohen, at 17:47 EST ,
--- NOTE | 2023-11-24 16:01 | EDS_ITS ---
HPI History of Present Illness Chief Complaint: Lower Extremity Injury Informant: patient Narrative Narrative: Patient presents with some intermittent stool incontinence. Patient states that on Thursday he lifted a very heavy microwave into a cart at [facility]. He was losing his footing and had to kind of run with a cart. He strained his right groin. It hurt that day. But he states it does not hurt anymore. He never had abdominal pain. On Thursday, 2 days later, he noticed he had a little bit of leakage of stool. No black or blood. No abdominal pain. No trouble urinating. No rectal pain. No fevers or chills. He denied any scrotal or testicular swelling or pain. But then when I examine it I noticed he has some swelling and he states he had an appointment with Dr. Butt today about that as it started after the lifting microwave event also. It is sometimes hard to get details from the patient. He does have a history of some back issues and had surgery 2 years ago. But he has no back pain now. No urinary incontinence or difficulty. No radicular pain down the legs. No sensory change in the inguinal region. 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 Spinal stenosis of lumbar region with radiculopathy Wears dentures Wears glasses Home Medications aspirin 81 mg chewable tablet 81 mg PO DAILY@0800 heart health 01/24/16 [History Last Taken 09/02/21] dutasteride 0.5 mg capsule 0.5 mg PO DAILY prostate 01/24/16 [History Last Taken 09/02/21] nitroglycerin 0.4 mg sublingual tablet 0.4 mg sublingual Q5M PRN Chest Pain #25 tabs 10/28/19 [Rx Last Taken 09/02/21] alfuzosin 10 mg tablet,extended release 24 hr 10 mg PO DAILY prostate 03/29/20 [History Last Taken 09/02/21] vit C 250 mg-vit E 90 mg-zinc 40 mg-copper 1 bi-jprimp-sxymwa capsule (PreserVision AREDS-2) 1 ea PO BID supplement 11/25/20 [History Last Taken 09/02/21] hydrocodone 7.5 mg-acetaminophen 325 mg tablet ea PO 10/21/21 [History Last Taken Unknown] calcium carbonate 600 mg calcium (1,500 mg) tablet (Calcium) 600 mg PO DAILY 12/02/21 [History Last Taken Unknown] cholecalciferol (vitamin D3) 125 mcg (5,000 unit) capsule 125 mcg PO DAILY 12/02/21 [History Last Taken Unknown] magnesium 200 mg tablet 400 mg PO DAILY 12/02/21 [History Last Taken Unknown] fenofibrate 160 mg tablet See Rx Instructions .Route .COMPLEX #90 TABLETS 01/12/23 [Rx Last Taken Unknown] clopidogrel 75 mg tablet 75 mg PO DAILY #90 tabs 10/15/23 [Rx Last Taken Unknown] losartan 100 mg tablet 100 mg PO DAILY #90 tabs 10/15/23 [Rx Last Taken Unknown] metoprolol tartrate 50 mg tablet 50 mg PO BID bp ctrl #180 tabs 10/15/23 [Rx Last Taken Unknown] simvastatin 40 mg tablet 40 mg PO QHS cholesterol #90 tabs 10/15/23 [Rx Last Taken Unknown] cephalexin 500 mg capsule 500 mg PO Q6 #40 CAPSULES 11/24/23 [Rx Last Taken Unknown] doxycycline monohydrate 100 mg capsule 100 mg PO BID #20 CAPSULES 11/24/23 [Rx Last Taken Unknown] Allergy/AdvReac Type Severity Reaction Status Date / Time No Known Allergies Allergy Verified 11/24/23 14:44 Family History Father , Age 94; had CABG age 81 CABG CAD (coronary artery disease) Mother , Age 53, Cancer Cancer Surgical History H/O coronary artery bypass surgery (11/03/01) History of cardiac catheterization History of coronary artery stent placement (03/12/16) History of lumbar laminectomy (08/2021) Hx of colonoscopy Social History Smoking Status: Former smoker quit date: 01/01/02 pack-years: 30 ROS ROS ED Constitutional Constitutional ED: Denies chills, fever(s), subjective or sweats ENT ENT ED: Denies rhinorrhea Cardiovascular Cardiovascular: Denies chest pain or palpitations Respiratory/Chest Respiratory/Chest: Denies cough Gastrointestinal Gastrointestinal: Reports diarrhea and other Details: See history of present illness. ; Denies abdominal pain, constipation, melena, nausea or vomiting Genitourinary Genitourinary ED: Reports other Details: See HPI ; Denies dysuria, hematuria or urinary frequency Musculoskeletal Musculoskeletal: Denies back pain or neck pain Integumentary Denies rash Neurologic Neurologic: Denies headache(s), paresthesias or weakness Hematologic/Lymphatic Hematologic/Lymphatic: Reports other Details: I do note that the patient is on Plavix. ; Denies easy bleeding or easy bruising EXAM Physical Exam Narrative Exam Narrative: CONSTITUTIONAL: Patient is nontoxic in appearance. The patient looks comfortable. HEENT: No notable trauma. Mucous membranes moist. EYES: No conjunctival injection. CARDIOVASCULAR: Regular rate. Regular rhythm. No notable murmur. No JVD. RESPIRATORY: No respiratory distress. Breathing is unlabored. No wheezes. No rhonchi. No rales. No pain with a deep breath. GASTROINTESTINAL: Obese but not distended. Bowel sounds are normal. No tenderness. No guarding. No rebound. No palpable mass. No bruit. There is no inguinal mass swelling or tenderness. Rectal exam does show light galan slightly watery stool in his underwear. He still has rectal tone though. He still has sensation in the area. GENITOURINARY: No tenderness over the bladder. No CVA tenderness. Patient does have some erythema and swelling of the lower scrotal area as it approaches toward the rectum. There is a area that is bruised and may have a little bit of drainage of purulence. But it is not at all tender. He states he feels it. He can feel that the area is swollen even without touching it. But it does not hurt to touch. The majority of the scrotum and inguinal region are normal. There is no subcutaneous air. MUSCULOSKELETAL: Atraumatic. NEUROLOGICAL: Patient is alert and appropriate. No focal deficit noted. Patient actually gets up off of bed. He gets his pants off by himself. There is no weakness or neurologic deficit at all. SKIN: See exam above. PSYCHIATRIC: Patient is calm. Mood is appropriate. Const Vital Signs: 11/24/23 14:45 11/24/23 19:58 Temperature 96.4 F L Temperature Source Temporal Pulse Rate 94 95 Respiratory Rate 18 18 Blood Pressure 154/69 H 161/82 H Blood Pressure Mean 97 108 Pulse Ox 95 99 Oxygen Delivery Method Room Air Room Air MDM MDM MDM Narrative Medical decision making narrative: My independent interpretation of the patient's CT shows no acute intra-abdominal process. No significant inflammatory area or abscess. Final reading is similar. Reading of testicular ultrasound shows bilateral hydroceles and some thickening of the scrotal wall without evidence of abscess. Clinically this is more at the base of the scrotum more than just on the right. It could be contusion but there is 1 area that looks like there may be drainage that makes me think this could be infectious. But patient is nontoxic and has normal blood work. I think antibiotics are appropriate. CBC is normal. Electrolytes are normal other than minimally high chloride and glucose. Urine is completely clean. Patient states he has never had diarrhea before. But he has had a couple episodes of watery stool here. But he was not incontinent. He just thinks the fluid has leaked out a couple times. I have encouraged to come back if he develops pain fevers vomiting or swelling at the base of the scrotum further. He had an appointment today with his urologist, Dr. Butt but came here. I david d him to call in the morning for close follow-up. Lab Data Labs: Laboratory Results - last 24 hr 11/24/23 11/24/23 16:15 19:35 WBC 9.0 RBC 4.62 Hgb 13.6 Hct 41.6 MCV 90.0 MCH 29.4 MCHC 32.7 RDW Std Deviation 41.5 RDW Coeff of Kelsey 12.6 Plt Count 238 MPV 9.6 Immature Gran % (Auto) 0.200 Neut % (Auto) 79.0 H Lymph % (Auto) 10.9 L [place] % (Auto) 8.7 Eos % (Auto) 0.9 Baso % (Auto) 0.3 Absolute Neuts (auto) 7.1 Absolute Lymphs (auto) 0.98 Nucleated RBC % 0 Sodium 140 Potassium 3.8 Chloride 109 H Carbon Dioxide 27.0 Anion Gap 4 L BUN 11 Creatinine 0.96 Estim Creat Clear Calc 81.34 Est GFR (MDRD) Af Amer 98 Est GFR (MDRD) Non-Af 81 BUN/Creatinine Ratio 11.5 Glucose 125 H Calcium 8.8 Urine Color Yellow Urine Clarity Clear Urine pH 6.5 Ur Specific [place] 1.010 Urine Protein 15 H Urine Glucose (UA) Normal Urine Ketones Negative Urine Occult Blood Negative Urine Nitrite Negative Urine Bilirubin Negative Urine Urobilinogen 1 H Ur Leukocyte Esterase Negative Urine RBC 0 SEEN Urine WBC 0 SEEN Ur Squamous Epith Cells 0 SEEN Urine Bacteria 0 SEEN Urine Mucus 0 SEEN Radiography Diagnostic Testing: Clinical Impression(s) from Imaging Studies Abdomen/Pelvis CT 11/24/23 15:59 IMPRESSION: Prominent prostate impinging the posterior wall of the urinary bladder. Clinical correlation recommended. Sigmoid diverticulosis. Otherwise unremarkable CT of the abdomen and pelvis. Electronically Signed: Thang Cohen at 17:47 EST Reading Location ID and State: Pending sale to [facility] / [place] Tel , Service support , Testicular Ultrasound 11/24/23 15:59 IMPRESSION: 1. No evidence of testicular torsion at the time this examination was performed. 2. Bilateral hydrocele larger on the right side. 3. Large right epididymal cyst. 4. Thickening of the right scrotal wall with increased flow without evidence of drainable abscess. Electronically Signed: Ady Draper MD at 19:25 EST Reading Location ID and State: [facility] / [place] Tel , Service support , Discharge Plan Triage Chief Complaint: Lower Extremity Injury Other Complaint: Abd Pain ED Provider: Joe Walker Dx/Rx/DC Orders Clinical Impression: Cellulitis of scrotum, Diarrhea Instructions: ED Cellulitis Prescriptions: New doxycycline monohydrate 100 mg capsule 100 mg PO BID Qty: 20 0RF cephalexin [cephalexin] 500 mg capsule 500 mg PO Q6 Qty: 40 0RF No Action hydrocodone-acetaminophen 7.5-325 mg tablet PO cholecalciferol (vitamin D3) 125 mcg (5,000 unit) capsule 125 mcg PO DAILY magnesium 200 mg tablet 400 mg PO DAILY calcium carbonate [Calcium 600] 600 mg calcium (1,500 mg) tablet 600 mg PO DAILY aspirin 81 MG tablet,chewable 81 mg PO DAILY@0800 Patient Comments: heart dutasteride 0.5 MG capsule 0.5 mg PO DAILY Patient Comments: BPH alfuzosin 10 mg tablet extended release 24 hr 10 mg PO DAILY Patient Comments: BPH PreserVision AREDS-2 1 EACH capsule 1 ea PO BID nitroglycerin 0.4 mg tablet, sublingual 0.4 mg SUBLINGUAL Q5M PRN (Reason: Chest Pain) Qty: 25 3RF fenofibrate 160 mg tablet See Rx Instructions .ROUTE .COMPLEX Qty: 90 3RF Dose Instruction: TAKE 1 TABLET DAILY Rx Instructions: TAKE 1 TABLET DAILY losartan 100 mg tablet 100 mg PO DAILY Qty: 90 3RF simvastatin 40 mg tablet 40 mg PO QHS Qty: 90 3RF Hold Instructions: myalgias metoprolol tartrate 50 mg tablet 50 mg PO BID Qty: 180 3RF clopidogrel 75 mg tablet 75 mg PO DAILY Qty: 90 3RF Patient Comments: LAST DOSE 08/26/2021 Primary Care Provider: Margaret Ariza Referrals: Jose Raul Butt MD [Med Staff - Active Staff] - 2 Days for wound check Margaret Ariza DO [Primary Care Provider] - Disposition Disposition: Home, Self Care
[2023-11-24 16:24] LABS: Absolute Lymphocyte Count 0.98 X10^3/uL (0.83-4.51); Absolute Neutrophil Count 7.1 X10^3/uL (2.0-7.7); Basophil# 0.03 X10^3/uL; Basophil% 0.3 % (0-1); Eosinophil# 0.08 X10^3/uL; Eosinophils% 0.9 % (0-5); Hematocrit 41.6 % (40-54); Hemoglobin 13.6 g/dL (13.0-16.5); Lymphocyte # 0.98 X10^3/ul (0.83-4.51); Lymphocyte % 10.9 % (19-41); Mean Corp Hgb Conc 32.7 g/dL (32-36); Mean Corpuscular Hgb 29.4 pg (27.0-32.0); Mean Platelet Vol. 9.6 fl (6.2-12.0); Monocyte# 0.78 X10^3/uL; Monocyte% 8.7 % (0-10); NRBC Flagged by Analyzer 0 % (0-5); Neutrophil # 7.07 X10^3/uL (2.7-7.7); Platelet Count 238 K/mm3 (150-450); RBC Distribution Width CV 12.6 % (11.6-14.6); RBC Distribution Width SD 41.5 fl (35.1-43.9); Red Blood Count 4.62 M/mm3 (4.6-6.2)
[2023-11-24 16:39] LABS: Anion Gap 4 (5-15); BUN 11 mg/dL (7-18); BUN/Creat Ratio 11.5 RATIO (10-20); Calcium,Total 8.8 mg/dL (8.5-10.1); Chloride 109 mmol/L (98-107); Creatinine, Serum 0.96 mg/dL (0.70-1.30); EST Glomerular Filtration Rate 81 mL/min (>60); Est Glom Filt Rate - Afr Amer 98 mL/min (>60); Estimated Creatinine Clearance 81.34 ml/min; Glucose 125 mg/dL (74-106); Potassium 3.8 mmol/L (3.5-5.1); Sodium Level 140 mmol/L (136-145)
[2023-11-24 19:42] LABS: Bacteria 0 SEEN /hpf (None Seen); Mucous, Urine 0 SEEN /hpf (<or=2+); Red Blood Cells-Urine 0 SEEN /hpf (0-5); Squamous Epithelial Cells - UA 0 SEEN /hpf (0-5); White Blood Cells 0 SEEN /hpf (0-5)
[2023-11-24 19:48] LABS: Color, Urine Yellow (Yellow); Glucose, Dipstick Normal (Normal); Ketone-Dipstick Negative (Negative); Leukocyte Esterase-Dipstick Negative /ul (Negative); Nitrite-Dipstick Negative (Negative); Occult Blood-Urine Negative /ul (Negative); Protein-Dipstick 15 mg/dl (Negative); Urine Bilirubin Dipstick Negative (Negative); Urine Clarity Clear (Clear); Urine Urobilinogen 1 mg/dl (Normal); Urine pH 6.5 (5.0 - 8.0)
[2023-11-24 19:58] VITALS: BP 161/82; PULSE 95; RESP 18; O2SAT 99
[2023-11-24] MEDS: Cephalexin 250 MG Capsule 500 MG PO (21:17)
[2023-11-24] MEDS: Doxycycline 100 MG CAPSULE PO (21:17)
[2023-11-24 21:19] VITALS: BP 161/82; PULSE 95; RESP 18; TEMP 36.6; O2SAT 99
== END 2023-11-24 21:20 | disposition home or self-care (01) ==
PROVIDERS: Emergency Provider Emergency Medicine; PCP Internal Medicine; Visit Provider Emergency Medicine
DX: R19.7 Diarrhea, unspecified (principal); Z87.891 Personal history of nicotine dependence; N49.2 Inflammatory disorders of scrotum; I25.10 Atherosclerotic heart disease of native coronary artery without angina pectoris; I10 Essential (primary) hypertension; E78.5 Hyperlipidemia, unspecified; I25.2 Old myocardial infarction; Z79.82 Long term (current) use of aspirin; Z79.899 Other long term (current) drug therapy; Z79.02 Long term (current) use of antithrombotics/antiplatelets; Z95.5 Presence of coronary angioplasty implant and graft
CPT/HCPCS: 74177; 76870; 80048; 81001; 85025; 93976; 99285; Q9967; A4216

== ENCOUNTER 2023-11-26 09:59 | Emergency (ER) | payer MEDICARE, OTHER, SELFPAY ==
[2023-11-26 10:00] VITALS: BP 184/85; PULSE 102; RESP 18; TEMP 36.2; O2SAT 94; BMI 39.3
--- NOTE | 2023-11-26 10:28 | EDS_ITS ---
HPI History of Present Illness Chief Complaint: Wound Detail of Chief Complaint: Scrotal swelling and redness. Informant: patient Pain Onset: Days Context: Gradual Onset Timing: Continuous Current Severity: Mild Maximum Severity: Mild Narrative Narrative: 78-year-old male was seen 2 days ago on in the emergency department a CAT scan of his abdomen which was unremarkable and a scrotal ultrasound unremarkable along with unremarkable blood work. He was treated with doxycycline and Keflex for scrotal cellulitis. He also had some mild bleeding at the base of his scrotum at that time. He has been having diarrhea prior to that ER visit. He just wanted it reevaluated today. He denies any fever. 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 Spinal stenosis of lumbar region with radiculopathy Wears dentures Wears glasses Home Medications aspirin 81 mg chewable tablet 81 mg PO DAILY@0800 heart health 01/24/16 [History Last Taken 09/02/21] dutasteride 0.5 mg capsule 0.5 mg PO DAILY prostate 01/24/16 [History Last Taken 09/02/21] nitroglycerin 0.4 mg sublingual tablet 0.4 mg sublingual Q5M PRN Chest Pain #25 tabs 10/28/19 [Rx Last Taken 09/02/21] alfuzosin 10 mg tablet,extended release 24 hr 10 mg PO DAILY prostate 03/29/20 [History Last Taken 09/02/21] vit C 250 mg-vit E 90 mg-zinc 40 mg-copper 1 [id number] capsule (PreserVision AREDS-2) 1 ea PO BID supplement 11/25/20 [History Last Taken 09/02/21] hydrocodone 7.5 mg-acetaminophen 325 mg tablet ea PO 10/21/21 [History Last Taken Unknown] calcium carbonate 600 mg calcium (1,500 mg) tablet (Calcium) 600 mg PO DAILY 12/02/21 [History Last Taken Unknown] cholecalciferol (vitamin D3) 125 mcg (5,000 unit) capsule 125 mcg PO DAILY 12/02/21 [History Last Taken Unknown] magnesium 200 mg tablet 400 mg PO DAILY 12/02/21 [History Last Taken Unknown] fenofibrate 160 mg tablet See Rx Instructions .Route .COMPLEX #90 TABLETS 01/12/23 [Rx Last Taken Unknown] clopidogrel 75 mg tablet 75 mg PO DAILY #90 tabs 10/15/23 [Rx Last Taken Unknown] losartan 100 mg tablet 100 mg PO DAILY #90 tabs 10/15/23 [Rx Last Taken Unknown] metoprolol tartrate 50 mg tablet 50 mg PO BID bp ctrl #180 tabs 10/15/23 [Rx Last Taken Unknown] simvastatin 40 mg tablet 40 mg PO QHS cholesterol #90 tabs 10/15/23 [Rx Last Taken Unknown] cephalexin 500 mg capsule 500 mg PO Q6 #40 CAPSULES 11/24/23 [Rx Last Taken Unknown] doxycycline monohydrate 100 mg capsule 100 mg PO BID #20 CAPSULES 11/24/23 [Rx Last Taken Unknown] Allergy/AdvReac Type Severity Reaction Status Date / Time No Known Allergies Allergy Verified 11/26/23 10:00 Family History Father , Age 94; had CABG age 81 CABG CAD (coronary artery disease) Mother , Age 53, Cancer Cancer Surgical History H/O coronary artery bypass surgery (11/03/01) History of cardiac catheterization History of coronary artery stent placement (03/12/16) History of lumbar laminectomy (08/2021) Hx of colonoscopy Social History Smoking Status: Former smoker quit date: 10/12/01 pack-years: 30 ROS ROS ED ROS Narrative Denies fever. Denies nausea vomiting. Has had diarrhea. Review of Systems ROS Unobtainable: Denies due to encephalopathy Constitutional Constitutional ED: Denies chills or fever(s) Eyes Eyes: Denies blurry vision ENT ENT ED: Denies ear pain Cardiovascular Cardiovascular: Denies chest pain Respiratory/Chest Respiratory/Chest: Denies cough or dyspnea Gastrointestinal Gastrointestinal: Denies abdominal pain Genitourinary Genitourinary ED: Denies dysuria or hematuria Musculoskeletal Musculoskeletal: Denies arthralgias or back pain Integumentary Reports rash and other Details: Cellulitis of the scrotum. ; Denies abscess Psychiatric Psychiatric: Denies anxiety Endocrine Endocrinology: Denies polydipsia or polyphagia Hematologic/Lymphatic Hematologic/Lymphatic: Denies easy bleeding, easy bruising or lymphadenopathy Allergic/Immunologic Allergic/Immunologic ED: Denies mouth swelling, tongue swelling or urticaria EXAM Physical Exam Narrative Exam Narrative: Well-appearing 78-year-old male. Vital signs stable afebrile. H EENT exam unremarkable. Lungs clear to auscultation. Heart regular rhythm rate about 100 no murmur. Chest wall and ribs nontender. Abdomen soft nontender. Back nontender. Moving all 4 extremities. Nontender. No edema. External exam penis is unremarkable. No discharge. No tenderness. He does have scrotal cellulitis. Bilateral mild swelling. The base of his scrotum where the skin attaches to his pelvis region there is a small lesion that is currently not bleeding. It appears to be a sore. There is no necrotic tissue. There is no subcu air. No Siddharth's gangrene. Patient is awake and alert. There is no focal motor deficits. He is answering questions following commands. Const Vital Signs: 11/26/23 10:00 Temperature 97.2 F L Temperature Source Temporal Pulse Rate 102 H Respiratory Rate 18 Blood Pressure 184/85 H Blood Pressure Mean 118 Pulse Ox 94 Oxygen Delivery Method Room Air Positive well nourished and well developed; Negative for cachectic, contractures or unkempt General Appearance ED: well developed and NAD; Negative for unkempt, cachectic, contractures or pallor Nutritional Appearance: Negative for cachectic HEENT Reports moist mucous membranes; Denies dry mucous membranes normocephalic and atraumatic; Negative for trauma or tenderness Mouth ED: No dry mucous membranes Mouth: No dry mucous membranes Eyes PERRL and EOMs intact bilaterally General Eye ED: Negative for pale conjunctiva, scleral icterus or other Neck no lymphadenopathy, supple and no JVD General: Negative for tenderness Resp normal respiratory effort and clear to auscultation bilaterally Effort and Inspection: Negative for retractions Auscultation: Negative for rales, rhonchi or wheezes Cardio regular rate, regular rhythm, S1 normal heart sound, S2 normal heart sound and no murmurs Rate: Negative for bradycardia or tachycardic Rhythm: Negative for abnormal rhythm Heart Sounds: Negative for other GI non-tender, non-distended and no masses Inspection: Negative for abdominal distention Auscultation: normoactive bowel sounds Palpation: soft; Negative for tender or guarding no CVA tenderness Bladder / Kidney Exam: No CVA tenderness Back/Spine no CVA tenderness General Back: Negative for CVA tenderness Cervical Spine: Negative for cervical spine tenderness Thoracic Spine / Upper Back: Negative for thoracic spinal tenderness Lumbar Spine / Lower Back: Negative for lumbar spinal tenderness Extremity normal to inspection General Extremety ED: Negative for edema or pulses abnormal General Extremity: Negative for edema or pulses abnormal Neuro oriented x3, CN's II-XII intact bilaterally, moves all extremities and no focal motor deficits Sensorium / Orientation: alert, oriented to person, oriented to place and oriented to time; Negative for orientation impaired, confused, lethargic or stuporous Psych mental status grossly normal Appearance: Negative for unkempt Attitude: No agitated Mood & Affect: Negative for depressed Thought Process: normal thought process Thought Content: normal thought content Skin Skin Narrative: Scrotal cellulitis. No abscess. General Skin Exam: Negative for jaundice or pallor Lesions: no lesions Rashes: rashes noted MDM MDM MDM Narrative Medical decision making narrative: 78-year-old male had a scrotal cellulitis with a sore that has mild bleeding but currently is not bleeding. There is no signs of Siddharth's gangrene. His significant workup 2 days ago from the emergency department including a CAT scan of his abdomen, scrotal ultrasound and lab work all of which really had no significant acute changes. He does have cellulitis of his scrotum. He is currently been on doxycycline and Keflex. I will repeat his CBC to see if there is any change in that. Repeat exam at 1230 patient doing well. Scrotal exam is unchanged. He has cellulitis. There is no subcu air crepitance. There is no signs of Siddharth's gangrene. He does have a sore on the proximal scrotum. There is a small amount of blood. There is no pus. Patient I discussed his labs. He is really only taken 1 day of the antibiotics so far. I would not call and failed outpatient therapy. I spoke to the urologist Dr. Abrahan Butt he has a scheduled appointment with the patient on Thursday he will follow-up then with the patient in the office. Patient knows to return if he is feeling worse or develops a fever or if the area looks a lot worse. History & Record Review Discussion w/independent historian: Patient Additional record(s) reviewed:: Prior inpatient record, Prior outpatient record, Prior ED visit and Prior labs Lab Data Attestation: I reviewed the patient's lab results. Lab results narrative: CBC white count of 4.9 H&H 13 and 41. Platelets 275. Electrolytes show a gap of 3. Normal BUN 14 creatinine 1. Glucose 141. Prior visit he had a CAT scan of his abdomen and an ultrasound of his scrotum which were unremarkable. Labs: Laboratory Results - last 24 hr 11/26/23 10:40 WBC 4.9 RBC 4.58 L Hgb 13.1 Hct 41.2 MCV 90.0 MCH 28.6 MCHC 31.8 L RDW Std Deviation 41.8 RDW Coeff of Kelsey 12.6 Plt Count 275 MPV 9.5 Immature Gran % (Auto) 0.400 Neut % (Auto) 72.5 H Lymph % (Auto) 16.7 L [place] % (Auto) 7.1 Eos % (Auto) 2.9 Baso % (Auto) 0.4 Absolute Neuts (auto) 3.6 Absolute Lymphs (auto) 0.82 L Nucleated RBC % 0 Sodium 141 Potassium 3.5 Chloride 109 H Carbon Dioxide 29.0 Anion Gap 3 L BUN 14 Creatinine 1.05 Estim Creat Clear Calc 74.40 Est GFR (MDRD) Af Amer 88 Est GFR (MDRD) Non-Af 73 BUN/Creatinine Ratio 13.3 Glucose 141 H Calcium 8.7 Discharge Plan Triage Chief Complaint: Wound ED Provider: Nathanael Jim Dx/Rx/DC Orders Clinical Impression: History of SC (myocardial infarction), Cellulitis, scrotum, History of hypertension Instructions: ED Cellulitis Prescriptions: No Action hydrocodone-acetaminophen 7.5-325 mg tablet PO cholecalciferol (vitamin D3) 125 mcg (5,000 unit) capsule 125 mcg PO DAILY magnesium 200 mg tablet 400 mg PO DAILY calcium carbonate [Calcium 600] 600 mg calcium (1,500 mg) tablet 600 mg PO DAILY aspirin 81 MG tablet,chewable 81 mg PO DAILY@0800 Patient Comments: heart dutasteride 0.5 MG capsule 0.5 mg PO DAILY Patient Comments: BPH alfuzosin 10 mg tablet extended release 24 hr 10 mg PO DAILY Patient Comments: BPH PreserVision AREDS-2 1 EACH capsule 1 ea PO BID doxycycline monohydrate 100 mg capsule 100 mg PO BID Qty: 20 0RF cephalexin [cephalexin] 500 mg capsule 500 mg PO Q6 Qty: 40 0RF nitroglycerin 0.4 mg tablet, sublingual 0.4 mg SUBLINGUAL Q5M PRN (Reason: Chest Pain) Qty: 25 3RF fenofibrate 160 mg tablet See Rx Instructions .ROUTE .COMPLEX Qty: 90 3RF Dose Instruction: TAKE 1 TABLET DAILY Rx Instructions: TAKE 1 TABLET DAILY losartan 100 mg tablet 100 mg PO DAILY Qty: 90 3RF simvastatin 40 mg tablet 40 mg PO QHS Qty: 90 3RF Hold Instructions: myalgias metoprolol tartrate 50 mg tablet 50 mg PO BID Qty: 180 3RF clopidogrel 75 mg tablet 75 mg PO DAILY Qty: 90 3RF Patient Comments: LAST DOSE 08/26/2021 Primary Care Provider: Margaret Ariza Referrals: Jose Raul Butt MD [Med Staff - Active Staff] - Keep Matteo appointment Margaret Ariza DO [Primary Care Provider] - Activity Restrictions/Additional Instructions: Make sure you are taking your antibiotics as prescribed. Make sure you get in the doses of each that you are supposed to today. I spoke to the urologist he will see you on Thursday. Make sure you go to that appointment. Keep the area clean. You can keep a pad or dressing on the area that is oozing blood. If you develop a fever or feeling worse or that redness spreads to other areas you can return to be reevaluated. You do not need to be admitted to the hospital at this time. Your blood work looks good. Your exam is unchanged. Disposition Disposition: Home, Self Care
[2023-11-26 10:48] LABS: Absolute Lymphocyte Count 0.82 X10^3/uL (0.83-4.51); Absolute Neutrophil Count 3.6 X10^3/uL (2.0-7.7); Basophil# 0.02 X10^3/uL; Basophil% 0.4 % (0-1); Eosinophil# 0.14 X10^3/uL; Eosinophils% 2.9 % (0-5); Hematocrit 41.2 % (40-54); Hemoglobin 13.1 g/dL (13.0-16.5); Lymphocyte # 0.82 X10^3/ul (0.83-4.51); Lymphocyte % 16.7 % (19-41); Mean Corp Hgb Conc 31.8 g/dL (32-36); Mean Corpuscular Hgb 28.6 pg (27.0-32.0); Mean Platelet Vol. 9.5 fl (6.2-12.0); Monocyte# 0.35 X10^3/uL; Monocyte% 7.1 % (0-10); NRBC Flagged by Analyzer 0 % (0-5); Neutrophil # 3.56 X10^3/uL (2.7-7.7); Neutrophil % 72.5 % (47-70); Platelet Count 275 K/mm3 (150-450); RBC Distribution Width CV 12.6 % (11.6-14.6); RBC Distribution Width SD 41.8 fl (35.1-43.9); Red Blood Count 4.58 M/mm3 (4.6-6.2); White Blood Count 4.9 K/mm3 (4.4-11.0)
[2023-11-26 11:04] LABS: Anion Gap 3 (5-15); BUN 14 mg/dL (7-18); BUN/Creat Ratio 13.3 RATIO (10-20); Calcium,Total 8.7 mg/dL (8.5-10.1); Chloride 109 mmol/L (98-107); Creatinine, Serum 1.05 mg/dL (0.70-1.30); EST Glomerular Filtration Rate 73 mL/min (>60); Est Glom Filt Rate - Afr Amer 88 mL/min (>60); Glucose 141 mg/dL (74-106); Potassium 3.5 mmol/L (3.5-5.1); Sodium Level 141 mmol/L (136-145)
[2023-11-26] MEDS: Cephalexin 250 MG Capsule 500 MG PO (13:07)
[2023-11-26 13:12] VITALS: BP 169/84; PULSE 89; RESP 12; TEMP 35.8; O2SAT 96
== END 2023-11-26 13:13 | disposition home or self-care (01) ==
PROVIDERS: Emergency Provider Emergency Medicine; PCP Internal Medicine; Visit Provider Emergency Medicine
DX: N49.2 Inflammatory disorders of scrotum (principal); I10 Essential (primary) hypertension; Z87.891 Personal history of nicotine dependence; I25.10 Atherosclerotic heart disease of native coronary artery without angina pectoris; E78.5 Hyperlipidemia, unspecified; I25.2 Old myocardial infarction; Z79.82 Long term (current) use of aspirin; Z79.899 Other long term (current) drug therapy; Z79.02 Long term (current) use of antithrombotics/antiplatelets; Z95.5 Presence of coronary angioplasty implant and graft
CPT/HCPCS: 80048; 85025; 99283

== ENCOUNTER → 2025-01-03 | Outpatient (CLI) | payer MEDICARE, OTHER, SELFPAY ==
[2025-01-03 14:43] LABS: PSA,Total - Annual Screen 2.15 ng/mL (0.02-4.00)
== END | disposition home or self-care (01) ==
PROVIDERS: PCP Internal Medicine; Referring Provider Nurse Practitioner; Visit Provider Nurse Practitioner
DX: Z12.5 Encounter for screening for malignant neoplasm of prostate (principal)
CPT/HCPCS: 36415; 84153; G0103

== ENCOUNTER → 2025-01-24 | Outpatient (CLI) | payer MEDICARE, OTHER, SELFPAY ==
[2025-01-24 16:26] LABS: Absolute Lymphocyte Count 1.38 X10^3/uL (0.83-4.51); Basophil# 0.03 X10^3/uL; Basophil% 0.6 % (0-1); Eosinophil# 0.15 X10^3/uL; Hematocrit 42.9 % (40-54); Hemoglobin 13.9 g/dL (13.0-16.5); Lymphocyte # 1.38 X10^3/ul (0.83-4.51); Lymphocyte % 27.7 % (19-41); Mean Corp Hgb Conc 32.4 g/dL (32-36); Mean Corpuscular Hgb 29.3 pg (27.0-32.0); Mean Corpuscular Volume 90.3 fL (80-94); Mean Platelet Vol. 10.4 fl (6.2-12.0); Monocyte# 0.39 X10^3/uL; Monocyte% 7.8 % (0-10); NRBC Flagged by Analyzer 0 % (0-5); Neutrophil # 2.99 X10^3/uL (2.7-7.7); Neutrophil % 60.1 % (47-70); Platelet Count 190 K/mm3 (150-450); RBC Distribution Width CV 12.6 % (11.6-14.6); RBC Distribution Width SD 41.6 fl (35.1-43.9); Red Blood Count 4.75 M/mm3 (4.6-6.2)
[2025-01-24 17:28] LABS: ALB/GLOB Ratio 1.4 RATIO (0.9-2.4); AST(SGOT) 22 U/L (<=37); Alanine Aminotransfer ALT/SGPT 10 U/L (<=46); Albumin, Serum 3.9 g/dL (3.4-4.8); Alkaline Phosphatase 47 U/L (40-129); Anion Gap 11 (5-15); BUN 16 mg/dL (4-19); BUN/Creat Ratio 14.9 RATIO (10-20); Calcium,Total 9.2 mg/dL (7.6-11.0); Carbon Dioxide 24.1 mmol/L (21.0-32.0); Chloride 105 mmol/L (98-108); Cholesterol 132 mg/dL (<=200); Creatinine, Serum 1.05 mg/dL (0.70-1.20); EST Glomerular Filtration Rate 72 (>60); Globulin 2.8 g/dL (2.2-4.2); Glucose 119 mg/dL (70-99); High Density Lipoprotein 44 mg/dL; Low Density Lipoprotein Calc. 53 mg/dL; Potassium 4.1 mmol/L (3.3-5.1); Protein, Total 6.8 g/dL (5.9-8.4); Sodium Level 140 mmol/L (133-145); Total Bilirubin 0.33 mg/dL (0.00-1.30); Triglycerides 173 mg/dL; Very Low Density Lipoprotein 35 mg/dL (5-40); cholesterol:hdl ratio screen 2.99
== END | disposition home or self-care (01) ==
LOC: LAB 15:17
PROVIDERS: PCP Internal Medicine; Referring Provider Physician Assistant Medical; Visit Provider Physician Assistant Medical
DX: R53.83 Other fatigue (principal); R00.1 Bradycardia, unspecified; E78.5 Hyperlipidemia, unspecified; I25.10 Atherosclerotic heart disease of native coronary artery without angina pectoris; R06.09 Other forms of dyspnea
CPT/HCPCS: 36415; 80053; 80061; 82652; 84443; 85025

== ENCOUNTER → 2025-01-27 | Outpatient (CLI) | payer MEDICARE, OTHER, SELFPAY | END | disposition home or self-care (01) | LOC: PSN 07:43 | PROVIDERS: PCP Internal Medicine; Referring Provider Physician Assistant Medical; Visit Provider Physician Assistant Medical | DX: R00.1 Bradycardia, unspecified (principal); R53.83 Other fatigue | CPT/HCPCS: 93225; 93226 ==